=== PATIENT | female | born 1980 | race Caucasian/White ===

== ENCOUNTER → 2017-10-21 01:02 | Outpatient (CLI) | payer BC, SELFPAY ==
--- NOTE | 2017-10-21 12:31 | DI.REPORT_ITS ---
SYMPTOM/DIAGNOSIS: MORPHOLOGY, TWINS 030.049 OB ULTRASOUND: Comparison is made with 13 September 2017. Dichorionic diamniotic gestation is noted. Both placentas are anterior and adjacent to one another. Fetus A is on the maternal right in breech position. The biometric measurements correspond to 17 weeks 3 days, consistent with previous dating. No abnormalities are seen. Fetus B is in transverse position with the head toward the maternal left. The biometric measurements correspond to 17 weeks 5 days. No abnormalities are seen. The amount of amniotic fluid around both fetuses appears normal. IMPRESSION: Twin gestation shows normal size for gestational age. Many abnormalities cannot be diagnosed. A normal exam does not exclude a congenital anomaly. Radiology No. [id number] LMP: Exam Date:10/21/17 [facility] wks days on EDC ([facility]) Confirmed: HISTORY: MORPHOLOGY. TWINS. TWIN BABY A ---- PREDICTED GESTATIONAL AGE NUMBER weeks with a range of week to weeks. 2 Determined by___1STUS___LMP___HISTORY Info. pertaining to fetus #BABY A PLACENTA PRESENTATION Grade 0-1 Cephalic___ Anterior___Posterior__XX_ Breech____ Right Left Transverse(head right___ Fundal___Low-lying___Previa___ Transverse(head left___ Varying___XX MOSTLY BREECH - ON RT___ BIOMETRY AMNIOTIC FLUID BPD: 38 mm 17 +5 weeks Normal HC: 139 mm 17 +2 weeks AC: 119 mm 17 +5 weeks FL: 23 mm 17 weeks AMNIOTIC FLUID INDEX >26 WK CRL: mm weeks Cisterna Magna: 4 mm CI: 0.84 RUQ: LUQ Cerebellum: 1.8 cm EFW: 191 grams Percentile RLQ: LLQ Total: cms Composite AGE= 17 +3 wks EDC by US__03/28/18 BIOPHYSICAL PROFILE ANATOMY IDENTIFIED SCORE 0/2 Heart: 4-Chamber_X__Rate:BPM__149___ LVOT: X RVOT:__X Amniotic Fluid(>2cms)____ Stomach:___X____ Kidneys:___X____ Respirations (>30 secs) Bladder:____X____ Post. Fossa: X Body Flex/Extension 3 vessel cord:__X Ventricles:____X cord insertion:_X____ Lips:__X__ Extremity Flex/Extension spinal morphology:__X Nose:X Total Score= Palate:___X____ NS=not seen Many abnormalities cannot be diagnosed. A normal exam does not exclude a congenital anomaly. Radiology No. [id number] LMP: Exam Date:10/21/17 [facility] wks days on EDC ([facility]) 03/30/18 Confirmed: HISTORY: MORPHOLOGY - TWINS Baby B ---- PREDICTED GESTATIONAL AGE NUMBER 17 +1 weeks with a range of 16 +1 week to 18 +1 weeks. 2 Determined by___1STUS___LMP___HISTORY XX EDC Info. pertaining to fetus # BABY B PLACENTA PRESENTATION Grade 0-1 Cephalic___ Anterior_XX__Posterior___ Breech____ Right Left Transverse(head right___ Fundal___Low-lying___Previa___ Transverse(head left X X SUPERIOR___ Varying BIOMETRY AMNIOTIC FLUID BPD: 40 mm 18 +2 weeks Normal HC: 147 mm 17 +6 weeks AC: 120 mm 17 +5 weeks FL: 23 mm 16 +5 weeks AMNIOTIC FLUID INDEX >26 WK CRL: mm weeks Cisterna Magna: 4mm CI: 0.84 RUQ: LUQ Cerebellum: 1.7 cm EFW: 191 grams Percentile RLQ: LLQ Total: cms Composite AGE= 17 +5 wks EDC by _ 03/26/18 BIOPHYSICAL PROFILE ANATOMY IDENTIFIED SCORE 0/2 Heart: 4-Chamber_xx__Rate:BPM_x___ LVOT:____x RVOT:__x Amniotic Fluid(>2cms)____ Stomach:___x____ Kidneys:___x____ Respirations (>30 secs) Bladder:____x____ Post. Fossa:___x Body Flex/Extension 3 vessel cord:__x Ventricles:__x cord insertion: Lips:__x__ Extremity Flex/Extension spinal morphology:____x____Nose: x Total Score= Palate:__x NS=not seen
== END ==
PROVIDERS: PCP Internal Medicine; Visit Provider Obstetrics & Gynecology Gynecology
DX: O30.042 Twin pregnancy, dichorionic/diamniotic, second trimester (principal)
CPT/HCPCS: 76805; 76810

== ENCOUNTER 2017-11-24 00:24 | Outpatient (CLI) | payer SELFPAY ==
--- NOTE | 2017-11-24 11:37 | DI.US_ITS ---
SYMPTOMS/DIAGNOSIS: GROWTH, TWINS, Z33.3 OBSTETRICAL ULTRASOUND: Many abnormalities cannot be diagnosed. A normal exam does not exclude a congenital anomaly. Radiology No. [id number] LMP: Exam Date: 11/24/2017 [facility] wks days on EDC ([facility]) 03/30/18 Confirmed: HISTORY: ---- PREDICTED GESTATIONAL AGE NUMBER 22 weeks with a range of 21 weeks to 23 weeks. 2 Determined by_X__1STUS___LMP___HISTORY Info. pertaining to fetus A PLACENTA PRESENTATION Grade I Cephalic___ Anterior_X__Posterior___ Breech____ Right Left Transverse(head right)_X__ Fundal_X__Low-lying___Previa___ Transverse(head left___ Varying BIOMETRY AMNIOTIC FLUID BPD: 53 mm 22+1 weeks Normal HC: 200 mm 22+1 weeks AC: 185 mm 23+2 weeks FL: 38 mm 22 weeks AMNIOTIC FLUID INDEX >26 WK CRL: mm weeks Cisterna Magna: mm CI: 83 RUQ: 0 LUQ: 3.0 Cerebellum: cm EFW: 525 grams Percentile: 78th RLQ: 2.6 LLQ: 2.6 Total: 8.1 cm Composite AGE= 22+3 wks EDC by US: 03/27/18 BIOPHYSICAL PROFILE ANATOMY IDENTIFIED SCORE 0/2 Heart: 4-Chamber___Rate:BPM 165 LVOT: RVOT: Amniotic Fluid(>2cms)____ Stomach: Kidneys: Respirations (>30 secs) Bladder: Post. Fossa: Body Flex/Extension 3 vessel cord: Ventricles: cord insertion: Lips:____ Extremity Flex/Extension spinal morphology: Nose: Total Score= Palate: NS=not seen Many abnormalities cannot be diagnosed. A normal exam does not exclude a congenital anomaly. OBSTETRICAL ULTRASOUND: Many abnormalities cannot be diagnosed. A normal exam does not exclude a congenital anomaly. Radiology No. [id number] LMP: Exam Date: 11/24/2017 [facility] wks days on EDC ([facility]) 03/30/18 Confirmed: HISTORY: ---- PREDICTED GESTATIONAL AGE NUMBER 22 weeks with a range of 21 weeks to 23 weeks. 2 Determined by_X__1STUS___LMP___HISTORY Info. pertaining to fetus B PLACENTA PRESENTATION Grade I Cephalic___ Anterior_X__Posterior___ Breech____ Right Left Transverse(head right)___ Fundal_X__Low-lying___Previa___ Transverse(head left_X__ Varying BIOMETRY AMNIOTIC FLUID BPD: 54 mm 22+3 weeks Normal HC: 204 mm 22+4 weeks AC: 177 mm 23+4 weeks FL: 38 mm 22+1 weeks AMNIOTIC FLUID INDEX >26 WK CRL: mm weeks Cisterna Magna: mm CI: 81 RUQ: 1.0 LUQ: 1.6 Cerebellum: cm EFW: 503 grams Percentile: 66th RLQ: 3.2 LLQ: 2.9 Total: 8.7 cm Composite AGE= 22+3 wks EDC by US: 03/27/18 BIOPHYSICAL PROFILE ANATOMY IDENTIFIED SCORE 0/2 Heart: 4-Chamber___Rate:BPM 155 LVOT: RVOT: Amniotic Fluid(>2cms)____ Stomach: Kidneys: Respirations (>30 secs) Bladder: Post. Fossa: Body Flex/Extension 3 vessel cord: Ventricles: cord insertion: Lips:____ Extremity Flex/Extension spinal morphology: Nose: Total Score= Palate: NS=not seen COMMENTS: There are twin gestations. The placenta is anterior and fundal. Baby A shows a gestational age of 22 weeks 3 days. Estimated weight is 525 g. This is the 78th percentile. heart rate is 168 beats per minute. Amniotic fluid appears within normal limits. anatomic evaluation was not performed at this time. Baby B has a composite sonographic gestational age of 22 weeks 3 days. Estimated weight is 503 g. This is the 66th percentile. heart rate is 155 beats per minute. Amniotic fluid appears within normal limits. Baby A is transverse, head to the right. Baby B is transverse, head to the left. IMPRESSION: Living intrauterine twin gestation.
== END 2017-11-24 00:44 ==
PROVIDERS: PCP Internal Medicine; Visit Provider Obstetrics & Gynecology
DX: O30.002 Twin pregnancy, unspecified number of placenta and unspecified number of amniotic sacs, second trimester (principal); Z36.89 Encounter for other specified antenatal screening
CPT/HCPCS: 76816

== ENCOUNTER 2017-12-20 00:32 | Outpatient (CLI) | payer BC, SELFPAY ==
--- NOTE | 2017-12-20 09:28 | DI.US_ITS ---
Many abnormalities cannot be diagnosed. A normal exam does not exclude a congenital anomaly. Radiology No. [id number] LMP: Exam Date: 12/20/17 [facility] wks days on EDC ([facility]) 03/30/18 Confirmed: HISTORY: TWINS, ESTIMATED WEIGHT, GRICEL, GROWTH ---- PREDICTED GESTATIONAL AGE NUMBER 25.5 weeks with a range of 24.5 week to 26.5 weeks. 2 Determined by__X_1STUS___LMP___HISTORY Info. pertaining to fetus # A PLACENTA PRESENTATION Grade I-II Cephalic___ Anterior_X__Posterior___ Breech____ Right Left Transverse(head right__X_ Fundal__X_Low-lying___Previa___ Transverse(head left___ Varying BIOMETRY AMNIOTIC FLUID BPD: 65 mm 26.1 weeks Normal HC: 241 mm 26.1 weeks AC: 215 mm 26 weeks FL: 47 mm 25.4 weeks AMNIOTIC FLUID INDEX >26 WK CRL: mm weeks Cisterna Magna: mm CI: 82 RUQ:___6.9___LUQ___6.0 Cerebellum: cm EFW: 863 grams 46th Percentile RLQ:__4.0____LLQ__5.9___ Total:___22.8 cms Composite AGE= 26.0 wks EDC by US___03/28/18 BIOPHYSICAL PROFILE ANATOMY IDENTIFIED SCORE 0/2 Heart: 4-Chamber___Rate:BPM__147___ LVOT: RVOT: Amniotic Fluid(>2cms)____ Stomach: Kidneys: Respirations (>30 secs) Bladder: Post. Fossa: Body Flex/Extension 3 vessel cord: Ventricles: cord insertion: Lips:____ Extremity Flex/Extension spinal morphology: Nose: Total Score= Palate: NS=not seen Many abnormalities cannot be diagnosed. A normal exam does not exclude a congenital anomaly. Radiology No. LMP: Exam Date: 12/20/17 [facility] wks days on [facility] ([facility]) 03/30/18 Confirmed: HISTORY: GRICEL, GROWTH, TWINS, WEIGHT ---- PREDICTED GESTATIONAL AGE NUMBER 25.5 weeks with a range of 24.5 week to 26.5 weeks. 2 Determined by__X_1STUS___LMP___HISTORY Info. pertaining to fetus # B PLACENTA PRESENTATION Grade I-II Cephalic___ Anterior__X_Posterior___ Breech____ Right Left Transverse(head right_X__ Fundal_X__Low-lying___Previa___ Transverse(head left___ Varying BIOMETRY AMNIOTIC FLUID BPD: 65 mm 26.3 weeks Normal HC: 250 mm 27.1 weeks AC: 221 mm 26.4 weeks FL: 46 mm 25.1 weeks AMNIOTIC FLUID INDEX >26 WK CRL: mm weeks Cisterna Magna: mm CI: 76 RUQ:___6.9___LUQ__6.0 Cerebellum: cm EFW: 893 grams 56th Percentile RLQ:__4.0____LLQ___5.9____ Total:___22.8 cms Composite AGE= 26.2 wks EDC by US__03/26/18 BIOPHYSICAL PROFILE ANATOMY IDENTIFIED SCORE 0/2 Heart: 4-Chamber___Rate:BPM__149___ LVOT: RVOT: Amniotic Fluid(>2cms)____ Stomach: Kidneys: Respirations (>30 secs) Bladder: Post. Fossa: Body Flex/Extension 3 vessel cord: Ventricles: cord insertion: Lips:____ Extremity Flex/Extension spinal morphology: Nose: Total Score= Palate: NS=not seen Routine examination. Comparison is made with 09/13/17. There is a twin gestation. Baby A is in the transverse presentation, head to the right. heart rate is 147 beats per minute. Estimated weight is 863 grams which is in the 46th percentile. Estimated gestational age is 26 weeks 0 days. Baby B is in the transverse presentation with head to the right. heart rate is 149 beats per minute. Estimated weight is 893 grams which is in the 56th percentile. Estimated gestational age is 26 weeks 2 days. The placenta is anterior and fundal. Amniotic fluid index is 22.8 cm. Visually amniotic fluid appears within normal limits. IMPRESSION: Twin gestation. Please see the above discussion for complete details.
== END 2017-12-20 00:52 ==
PROVIDERS: PCP Internal Medicine; Visit Provider Obstetrics & Gynecology
DX: O30.002 Twin pregnancy, unspecified number of placenta and unspecified number of amniotic sacs, second trimester (principal); Z36.89 Encounter for other specified antenatal screening
CPT/HCPCS: 76816

== ENCOUNTER 2018-01-17 00:31 | Outpatient (CLI) | payer SELFPAY ==
--- NOTE | 2018-01-17 06:18 | DI.US_ITS ---
Many abnormalities cannot be diagnosed. A normal exam does not exclude a congenital anomaly. Radiology No. LMP: 06/23/17 Exam Date: 01/17/18 [facility] wks days on EDC ([facility]) 03/30/18 Confirmed: HISTORY: FOLLOW GROWTH TWINS, O30.009,GRICEL ---- PREDICTED GESTATIONAL AGE NUMBER 29.5 weeks with a range of 28.5 week to 30.5 weeks. 2 Determined by_X__1STUS___LMP___HISTORY Info. pertaining to fetus # A PLACENTA PRESENTATION Grade II Cephalic___ Anterior_X__Posterior___ Breech____ Right Left Transverse(head right__X_ Fundal___Low-lying___Previa___ Transverse(head left___ Varying BIOMETRY AMNIOTIC FLUID BPD: 74 mm 29.5 weeks Normal HC: 276 mm 30.1 weeks AC: 260 mm 30.1 weeks FL: 56 mm 29.3 weeks AMNIOTIC FLUID INDEX >26 WK CRL: mm weeks Cisterna Magna: mm CI: 79 RUQ:__4.08___LUQ___3.11 Cerebellum: cm EFW: 1469 grams 42nd Percentile RLQ:__4.66____LLQ____2.89___ Total:___14.7 cms Composite AGE= 29.6 wks EDC by US 03/29/18 BIOPHYSICAL PROFILE ANATOMY IDENTIFIED SCORE 0/2 Heart: 4-Chamber_X__Rate:BPM_152____ LVOT: RVOT: Amniotic Fluid(>2cms)____ Stomach:____X___ Kidneys:____X___ Respirations (>30 secs) Bladder:____X____ Post. Fossa: Body Flex/Extension 3 vessel cord: Ventricles: cord insertion: Lips:____ Extremity Flex/Extension spinal morphology: Nose: Total Score= Palate: NS=not seen Routine examination was performed. There is a twin gestation. Baby A is in the transverse position with the head to the right. heart rate is 152 beats per minute. Estimated weight is 1469 grams which is the 42nd percentile. Estimated gestational age is 29 weeks 6 days. Many abnormalities cannot be diagnosed. A normal exam does not exclude a congenital anomaly. Radiology No. LMP: 06/23/17 Exam Date: 01/17/18 [facility] wks days on EDC ([facility]) 03/30/2018 Confirmed: HISTORY: F/U TWIN GROWTH, GRICEL ---- PREDICTED GESTATIONAL AGE NUMBER 29.5 weeks with a range of 28.5 week to 30.5 weeks. 2 Determined by__X_1STUS___LMP___HISTORY Info. pertaining to fetus # PLACENTA PRESENTATION Grade II Cephalic___ Anterior__X_Posterior___ Breech____ Right Left Transverse(head right__X_ Fundal___Low-lying___Previa___ Transverse(head left___ Varying BIOMETRY AMNIOTIC FLUID BPD: 76 mm 30.2 weeks Normal HC: 279 mm 30.4 weeks AC: 259 mm 30 weeks FL: 56 mm 29.2 weeks AMNIOTIC FLUID INDEX >26 WK CRL: mm weeks Cisterna Magna: mm CI: RUQ:__4.1____LUQ___3.1 Cerebellum: cm EFW: 1465 grams 41st Percentile RLQ:_4.7 LLQ____2.9___ Total:____14.7____cms Composite AGE= 30 wks EDC by US 03/28/18 BIOPHYSICAL PROFILE ANATOMY [id number] SCORE 0/2 Heart: 4-Chamber_X__Rate:BPM LVOT: RVOT: Amniotic Fluid(>2cms)____ Stomach:__X Kidneys:___X____ Respirations (>30 secs) Bladder:___X Post. Fossa: Body Flex/Extension 3 vessel cord: Ventricles: cord insertion: Lips:____ Extremity Flex/Extension spinal morphology: Nose: Total Score= Palate: NS=not seen Baby B is in the transverse position with the head to the right. heart rate is 144 beats per minute. Estimated weight is 1465 grams which is the 41st percentile. Estimated gestational age is 30 weeks. The placenta is anterior and fundal. Amniotic fluid index is 14.7 cm. Visually the amniotic fluid appears within normal limits. IMPRESSION: Twin gestation. Please see the above discussion for complete details.
[2018-01-17 07:21] LABS: HCT 33.7 % (36.0-46.0); HGB 11.6 g/dL (12.0-15.5); Mean Corp. HGB Concentration 34.4 g/dL (32.0-36.0); Mean Corpuscular Hemoglobin 30.8 pg (27.0-33.0); Mean Corpuscular Volume 89.4 fL (80-95); Mean Platelet Volume 9.8 fL (8.0-11.0); Platelet Count 176 x1000/uL (130-400); RBC 3.77 m/cumm (4.00-5.20); RBC Distribution Width 13.9 % (11.7-14.6); White Blood Cell Count 7.44 k/cumm (4.4-10.8)
[2018-01-17 07:31] LABS: Glucose,1 Hr (Glucola) 149 mg/dL (80-140)
== END 2018-01-17 00:51 ==
PROVIDERS: Obstetrics & Gynecology Gynecology; PCP Internal Medicine; Visit Provider Obstetrics & Gynecology
DX: O30.003 Twin pregnancy, unspecified number of placenta and unspecified number of amniotic sacs, third trimester (principal); Z36.2 Encounter for other antenatal screening follow-up
CPT/HCPCS: 36415; 76816; 82950; 85027

== ENCOUNTER 2018-01-25 07:24 | Outpatient (CLI) | payer SELFPAY ==
[2018-01-25 09:13] LABS: Glucose 1 Hour 146 mg/dL
[2018-01-25 11:35] LABS: Glucose 3 Hour 118 mg/dL
== END 2018-01-25 07:44 ==
PROVIDERS: PCP Internal Medicine; Visit Provider Obstetrics & Gynecology Gynecology
DX: R73.09 Other abnormal glucose (principal)
CPT/HCPCS: 36415; 82951

== ENCOUNTER 2018-02-16 00:21 | Outpatient (CLI) | payer BC, SELFPAY ==
--- NOTE | 2018-02-16 10:32 | DI.US_ITS ---
SYMPTOMS/DIAGNOSIS: TWINS, 030.003, CHECK GROWTH, FLUID OB ULTRASOUND: Comparison is made with . Fetus A is on the maternal right and is in cephalic position. The estimated weight corresponds to 51st percentile. The biometric measurements correspond to 34 weeks 2 days, consistent with previous dating. Fetus B is on the maternal left transverse and with the head toward the left. The biometric measurements correspond to 34 weeks 5 days. The estimated weight is 231 grams corresponding to the 49th percentile. The placenta is anterior. The amniotic fluid index is 18.2. IMPRESSION: Twin gestation with appropriate interval growth of both twins. Many abnormalities cannot be diagnosed. A normal exam does not exclude a congenital anomaly. Radiology No. [id number] LMP: Exam Date: [facility] wks days on EDC ([facility]) 03/30 Confirmed: ---- PREDICTED GESTATIONAL AGE NUMBER 34 weeks with a range of 33 weeks to 35 weeks. 2 Determined by 1STUS X LMP___HISTORY Info. pertaining to fetus # Baby A PLACENTA PRESENTATION Grade I-II Cephalic X Anterior X Posterior___ Breech____ Right Left Transverse(head right___ Fundal___Low-lying___Previa___ Transverse(head left___ Varying BIOMETRY AMNIOTIC FLUID BPD: 85 mm 34+3 weeks Normal HC: 311 mm 34+6 weeks AC: 308 mm 34+5 weeks FL: 64 mm 33+1 weeks AMNIOTIC FLUID INDEX >26 WK CRL: mm weeks Cisterna Magna: mm CI: 0.82 RUQ: 8.67 LUQ: 5.09 Cerebellum: cm EFW: 2385 grams Percentile 51% RLQ: 1.81 LLQ: 2.62 Total: 18.2 cms Composite AGE= 34+2 wks EDC by US 03/28/18 BIOPHYSICAL PROFILE ANATOMY IDENTIFIED SCORE 0/2 Heart: 4-Chamber___Rate: 169 BPM LVOT: RVOT: Amniotic Fluid(>2cms)____ Stomach: Kidneys: Respirations (>30 secs) Bladder: Post. Fossa: Body Flex/Extension 3 vessel cord: Ventricles: cord insertion: Lips:____ Extremity Flex/Extension spinal morphology: Nose: Total Score= Palate: NS=not seen Baby A, right side, female. Many abnormalities cannot be diagnosed. A normal exam does not exclude a congenital anomaly. Radiology No. [id number] LMP: Exam Date: 02/16/18 [facility] wks days on EDC ([facility]) 03/30/18 Confirmed: ---- PREDICTED GESTATIONAL AGE NUMBER 34 weeks with a range of 33 weeks to 35 weeks. 2 Determined by 1STUS X LMP___HISTORY Info. pertaining to fetus # PLACENTA PRESENTATION Grade I-II Cephalic___ Anterior X Posterior___ Breech____ Right Left Transverse(head right___ Fundal___Low-lying___Previa___ Transverse(head left X superior Varying BIOMETRY AMNIOTIC FLUID BPD: 88 mm 35+4 weeks Normal HC: 328 mm 37+1 weeks AC: 309 mm 34+6 weeks FL: 60 mm 31+3 weeks AMNIOTIC FLUID INDEX >26 WK CRL: mm weeks Cisterna Magna: mm CI: 0.78 RUQ: 8.67 LUQ: 5.09 Cerebellum: cm EFW: 2371 grams Percentile 49% RLQ: 1.81 LLQ: 2.62 Total: 18.2 cms Composite AGE= 34+5 wks EDC by US 03/25/18 BIOPHYSICAL PROFILE ANATOMY IDENTIFIED SCORE 0/2 Heart: 4-Chamber___Rate: 145 BPM LVOT: RVOT: Amniotic Fluid(>2cms)____ Stomach: Kidneys: Respirations (>30 secs) Bladder: Post. Fossa: Body Flex/Extension 3 vessel cord: Ventricles: cord insertion: Lips:____ Extremity Flex/Extension spinal morphology: Nose: Total Score= Palate: NS=not seen Baby B, left side, male.
== END 2018-02-16 00:41 ==
PROVIDERS: PCP Internal Medicine; Visit Provider Obstetrics & Gynecology Gynecology
DX: O30.003 Twin pregnancy, unspecified number of placenta and unspecified number of amniotic sacs, third trimester (principal)
CPT/HCPCS: 76816

== ENCOUNTER 2018-02-24 16:15 | Outpatient (CLI) | payer BC, SELFPAY ==
[2018-02-24] MEDS: Betamet Acet/Betamet Na Ph Inj. 30 MG/5 ML 12 MG IM (16:32)
== END 2018-02-24 16:35 ==
PROVIDERS: PCP Internal Medicine; Visit Provider Obstetrics & Gynecology
DX: Z34.93 Encounter for supervision of normal pregnancy, unspecified, third trimester (principal); Z36.85 Encounter for antenatal screening for Streptococcus B
CPT/HCPCS: 96372; 87081; J0702

== ENCOUNTER 2018-02-25 16:12 | Outpatient (CLI) | payer BC, SELFPAY ==
[2018-02-25] MEDS: Betamet Acet/Betamet Na Ph Inj. 30 MG/5 ML 12 MG IM (16:32)
== END 2018-02-25 16:32 ==
PROVIDERS: PCP Internal Medicine; Visit Provider Obstetrics & Gynecology
DX: O30.043 Twin pregnancy, dichorionic/diamniotic, third trimester (principal); Z3A.36 36 weeks gestation of pregnancy
CPT/HCPCS: 96372; J0702

== ENCOUNTER 2018-03-08 00:23 | Outpatient (CLI) | payer BC, SELFPAY ==
--- NOTE | 2018-03-08 07:54 | DI.US_ITS ---
SYMPTOMS/DIAGNOSIS: TWIN GESTATION, GROWTH, GRICEL AT 37 WEEKS EGA, O30.003 OB ULTRASOUND: Many abnormalities cannot be diagnosed. A normal exam does not exclude a congenital anomaly. Radiology No. [id number] LMP: Exam Date: 03/08/18 [facility] wks days on EDC ([facility]) Confirmed: HISTORY: PREDICTED GESTATIONAL AGE NUMBER 37 weeks with a range of 36 weeks to 38 weeks. 2 Determined by_X__1STUS___LMP___HISTORY Info. pertaining to fetus A PLACENTA PRESENTATION Grade I-II Cephalic_X__ Anterior_X__Posterior___ Breech____ Right Left Transverse(head right___ Fundal___Low-lying___Previa___ Transverse(head left___ Varying BIOMETRY AMNIOTIC FLUID BPD: 91 mm 36+6 weeks Normal HC: 334 mm 38+1 weeks AC: 337 mm 37+4 weeks FL: 68 mm 34+6 weeks AMNIOTIC FLUID INDEX >26 WK CRL: mm weeks Cisterna Magna: mm CI: 0.81 RUQ: 5.2 LUQ: 4.82 Cerebellum: cm EFW: 3073 grams Percentile: 45th RLQ: 5.18 LLQ: 4.84 Total: 20 cm Composite AGE= 36+6 wks EDC by US: 03/30/18 BIOPHYSICAL PROFILE ANATOMY IDENTIFIED SCORE 0/2 Heart: 4-Chamber___Rate:BPM 145 LVOT: RVOT: Amniotic Fluid(>2cms)____ Stomach: Kidneys: Respirations (>30 secs) Bladder: Post. Fossa: Body Flex/Extension 3-vessel cord:___X____Ventricles: cord insertion: Lips:____ Extremity Flex/Extension spinal morphology: Nose: Total Score= Palate: NS=not seen Radiology No. [id number] LMP: Exam Date: 03/08/18 [facility] wks days on EDC ([facility]) Confirmed: HISTORY: PREDICTED GESTATIONAL AGE NUMBER 37 weeks with a range of 36 weeks to 38 weeks. 2 Determined by_X__1STUS___LMP___HISTORY Info. pertaining to fetus B PLACENTA PRESENTATION Grade I-II Cephalic_X__ Anterior_X__Posterior___ Breech____ Right Left Transverse(head right___ Fundal___Low-lying___Previa___ Transverse(head left___ Varying BIOMETRY AMNIOTIC FLUID BPD: 92 mm 37+2 weeks Normal HC: 341 mm 39+2 weeks AC: 347 mm 38+4 weeks FL: 66 mm 34+1 weeks AMNIOTIC FLUID INDEX >26 WK CRL: mm weeks Cisterna Magna: mm CI: 0.78 RUQ: 5.2 LUQ: 4.82 Cerebellum: cm EFW: 3229 grams Percentile: RLQ: 5.18 LLQ: 4.84 Total: 20 cm Composite AGE= 37+2 wks EDC by US: 03/27/18 BIOPHYSICAL PROFILE ANATOMY IDENTIFIED SCORE 0/2 Heart: 4-Chamber___Rate:BPM 155 LVOT: RVOT: Amniotic Fluid(>2cms)____ Stomach: Kidneys: Respirations (>30 secs) Bladder: Post. Fossa: Body Flex/Extension 3-vessel cord:___X____Ventricles: cord insertion: Lips:____ Extremity Flex/Extension spinal morphology: Nose: Total Score= Palate: NS=not seen COMMENTS: OB ultrasound was performed utilizing third trimester protocol. The placenta of fetus A is anterior with no evidence of placenta previa. There is a normal quantity of amniotic fluid visually and the GRICEL is 20. biometry is consistent with a gestational age of 36 weeks 6 days and EDC 03/30/2018. Estimated weight is 3073 g, which is at the 45th percentile for predicted gestational age. The fetus is in cephalic presentation. cardiac activity observed at a rate of 145 b.p.m. The placenta of fetus B is anterior with no evidence of placenta previa. There is a normal quantity of amniotic fluid visually and the GRICEL is 20. biometry is consistent with a gestational age of 37 weeks 2 days and EDC 03/27/2018. Estimated weight is 3229 g. The fetus is in cephalic presentation. cardiac activity observed at a rate of 155 b.p.m.
== END 2018-03-10 07:43 ==
LOC: DI 00:23
PROVIDERS: PCP Internal Medicine; Visit Provider Obstetrics & Gynecology Gynecology
DX: O30.003 Twin pregnancy, unspecified number of placenta and unspecified number of amniotic sacs, third trimester (principal)
CPT/HCPCS: 76816

== ENCOUNTER 2018-03-10 07:00 | Inpatient (IN) | payer BC, SELFPAY ==
[2018-03-10 07:32] LABS: HCT 34.6 % (36.0-46.0); HGB 11.7 g/dL (12.0-15.5); Mean Corp. HGB Concentration 33.8 g/dL (32.0-36.0); Mean Corpuscular Hemoglobin 28.5 pg (27.0-33.0); Mean Corpuscular Volume 84.2 fL (80-95); Mean Platelet Volume 10.6 fL (8.0-11.0); Platelet Count 213 x1000/uL (130-400); RBC 4.11 m/cumm (4.00-5.20); RBC Distribution Width 12.4 % (11.7-14.6); White Blood Cell Count 6.65 k/cumm (4.4-10.8)
[2018-03-10] MEDS: Lactated Ringers 1,000 ML 125 ML IV ×2 (08:26→14:51)
--- NOTE | 2018-03-10 20:10 | PDOC.ANES ---
Date of service: 03/10/18 Time of Service: 20:10 Anesthesia Note Report Anesthesia Note: Requested by patient to provide epidural analgesia. Epidural placed earlier this afternoon. pt does state she has a very mild headache but intensity does not change with position. she has been ambulatory without difficulty. Clinician bolus given from pump with a total of 20 ml in divided doses. Contraction intensity 6/10 prior to dosing and is reported to 2-3/10 after. dressing and site intact. there is a very small amount of clear/blood tinged drainage in dressing, catheter is still at 11cm to skin.
--- NOTE | 2018-03-10 20:16 | ANES_ITS ---
Date of service: 03/10/18 Time of Service: 20:10 Anesthesia Note Report Anesthesia Note: Requested by patient to provide epidural analgesia. Epidural placed earlier this afternoon. pt does state she has a very mild headache but intensity does not change with position. she has been ambulatory without difficulty. Clinician bolus given from pump with a total of 20 ml in divided doses. Contraction intensity 6/10 prior to dosing and is reported to 2- 3/10 after. dressing and site intact. there is a very small amount of clear/blood tinged drainage in dressing, catheter is still at 11cm to skin.
[2018-03-10] MEDS: Tranexamic Acid 1,000 MG/10 ML VIAL 1000 MG (23:58)
[2018-03-11] MEDS: Ondansetron 4 MG/2 ML VIAL IVP
[2018-03-11] MEDS: Normal Saline Flush 10 ML SYR IVP (00:04)
[2018-03-11 07:16] LABS: HCT 31.4 % (36.0-46.0); HGB 10.6 g/dL (12.0-15.5); Mean Corp. HGB Concentration 33.8 g/dL (32.0-36.0); Mean Corpuscular Hemoglobin 28.2 pg (27.0-33.0); Mean Corpuscular Volume 83.5 fL (80-95); Mean Platelet Volume 10.5 fL (8.0-11.0); Platelet Count 168 x1000/uL (130-400); RBC 3.76 m/cumm (4.00-5.20); RBC Distribution Width 12.1 % (11.7-14.6); White Blood Cell Count 8.51 k/cumm (4.4-10.8)
--- NOTE | 2018-03-11 08:45 | W.PM.PROGNOT ---
Date of Service Date of service: 03/11/18 Time of Service: 08:46 Assessment and Plan (1) Twin delivered vaginally: Current visit: Yes Status: Acute Continue routine care. Will plan for discharge home tomorrow. Subjective Interval history since last seen: Doing well. No problems overnight. Lochia has been appropriate. Ambulatory. Tolerating regular diet. Objective Objective Clinical Data: Abnormal lab results 03/11/18 Range/Units 07:05 RBC 3.76 L (4.00-5.20) m/cumm Hgb 10.6 L (12.0-15.5) g/dL Hct 31.4 L (36.0-46.0) % Intake & Output 03/10/18 03/10/18 03/11/18 11:59 23:59 11:59 Intake Total 2200.00 / 2200.00 Balance 2200.00 / 2200.00 Intake: IV 2200.00 / 2200.00 Laboratory Results WBC 8.51 k/cumm (4.4-10.8) 03/11/18 07:05 RBC 3.76 m/cumm (4.00-5.20) L 03/11/18 07:05 Hgb 10.6 g/dL (12.0-15.5) L 03/11/18 07:05 Hct 31.4 % (36.0-46.0) L 03/11/18 07:05 MCV 83.5 fL (80-95) 03/11/18 07:05 MCH 28.2 pg (27.0-33.0) 03/11/18 07:05 MCHC 33.8 g/dL (32.0-36.0) 03/11/18 07:05 RDW 12.1 % (11.7-14.6) 03/11/18 07:05 Plt Count 168 x1000/uL (130-400) 03/11/18 07:05 MPV 10.5 fL (8.0-11.0) 03/11/18 07:05 Patient ABO/Rh O Positive 03/10/18 07:20 Antibody Screen Negative 03/10/18 07:20
[2018-03-11] MEDS: Acetaminophen 325 MG TAB 650 MG PO ×2 (13:07→19:49)
[2018-03-11] MEDS: Ibuprofen 600 MG TAB PO ×2 (13:08→19:47)
[2018-03-12] MEDS: Acetaminophen 325 MG TAB 650 MG PO (06:40)
[2018-03-12] MEDS: Ibuprofen 600 MG TAB PO (06:40)
--- NOTE | 2018-03-12 09:03 | W.PM.PROGNOT ---
Date of Service Date of service: 03/12/18 Time of Service: 09:03 Assessment and Plan (1) Twin delivered vaginally: Current visit: Yes Status: Acute Unremarkable course following of Di Di twins. Ok to discharge home today. Subjective Interval history since last seen: Doing well. No problems overnight. Minimal lochia. Desires discharge home. Objective Objective Clinical Data: Vital Signs Pain Level 3 03/12/18 06:40 Laboratory Results WBC 8.51 k/cumm (4.4-10.8) 03/11/18 07:05 RBC 3.76 m/cumm (4.00-5.20) L 03/11/18 07:05 Hgb 10.6 g/dL (12.0-15.5) L 03/11/18 07:05 Hct 31.4 % (36.0-46.0) L 03/11/18 07:05 MCV 83.5 fL (80-95) 03/11/18 07:05 MCH 28.2 pg (27.0-33.0) 03/11/18 07:05 MCHC 33.8 g/dL (32.0-36.0) 03/11/18 07:05 RDW 12.1 % (11.7-14.6) 03/11/18 07:05 Plt Count 168 x1000/uL (130-400) 03/11/18 07:05 MPV 10.5 fL (8.0-11.0) 03/11/18 07:05 Patient ABO/Rh O Positive 03/10/18 07:20 Antibody Screen Negative 03/10/18 07:20
== END 2018-03-12 10:00 | disposition home or self-care (01) | DRG 807 ==
PROVIDERS: Admitting Provider Obstetrics & Gynecology Gynecology; PCP Internal Medicine; Referring Provider Obstetrics & Gynecology Gynecology; Visit Provider Obstetrics & Gynecology
DX: O30.043 Twin pregnancy, dichorionic/diamniotic, third trimester (principal); Z37.2 Twins, both liveborn; Z3A.37 37 weeks gestation of pregnancy; O69.0XX2 Labor and delivery complicated by prolapse of cord, fetus 2; O32.8XX2 Maternal care for other malpresentation of fetus, fetus 2; O09.813 Supervision of pregnancy resulting from assisted reproductive technology, third trimester; O99.824 Streptococcus B carrier state complicating childbirth
CPT/HCPCS: 59409 ×2; 36415; 85027; 86850; 86900; 86901; 99233; NC; J2405; J3490

== ENCOUNTER 2018-04-20 16:02 | Outpatient (REF) | payer BC, SELFPAY ==
--- NOTE | 2018-04-20 15:40 | PAPFT_PTH ---
PATIENT: Flower Cali LOC: [facility] U#:[id number] AGE/SX: 37/F ROOM: RE04/20/[address]: Ramya Sutton : 1980 BED: DIS: 04/20/2018 SPEC #: [id number] RECD: 04/20/18 18:01 STATUS: CHARLENE ROBERT #: [id number] REGINE: 04/20/18 15:[address]: Ramya Sutton DEPT: [facility] Cytology RECD BY: Christa Mathew ENTERED: 04/20/18 18:01 SP TYPE: PAPFT OTHR DR: Maximo Sosa Tissues: 1 - CX/ENDOCX FOR PAP SMEARS Procedures: PAP THIN PREP/UVM Screening HPV DNA PROBE Comments: [id number]
== END 2018-04-20 16:22 ==
LOC: LBN 16:02
PROVIDERS: PCP Internal Medicine; Visit Provider Obstetrics & Gynecology Gynecology
DX: Z12.4 Encounter for screening for malignant neoplasm of cervix (principal); Z11.51 Encounter for screening for human papillomavirus (HPV)
CPT/HCPCS: 88142; 87624

== ENCOUNTER 2020-04-17 00:59 | Outpatient (CLI) | payer BC, SELFPAY ==
--- NOTE | 2020-04-17 | DI.US_ITS ---
EXAM: US PELVIS TRANSVAGINAL CLINICAL HISTORY: FERTILITY CHECK,? ENDOMETRIAL LINING SIZE AND THICKNESS,CYST CHECK,BASAL. TECHNIQUE: Transabdominal and transvaginal pelvic ultrasound was performed using standard protocol. COMPARISON: There are no previous for comparison. FINDINGS: UTERUS: Position: Anteverted. Size: 7.9 long by 5.0 AP by 6.3 transverse cm Endometrium: 0.3 cm. Normal for patient's menstrual status. The endometrial stripe does not have a tr ilaminar appearance at this time. Myometrium: There is a 1 x 0.7 x 0.7 cm hypoechoic mass in the anterior body, likely representing a u terine fibroid. Cervix: Unremarkable. OVARIES: Right: 3.2 x 1.3 x 1.9 cm Cyst or mass: 3 small (less than 4 mm) functional cysts are seen. Left: 4.6 x 2.8 x 4.1 cm Cyst or mass: There are several small (less than 4 mm) functional cysts seen. There is a 3 x 2.9 x 3. 4 cm dominant simple cyst present. DOPPLER: Color: Symmetric and uniform flow to both ovaries. No hyperemia. CUL-DE-SAC: Free fluid: None. Other: None. IMPRESSION: 1. Normal-appearing uterus with endometrial stripe as described above. 2. Unremarkable bilateral ovaries with a 3.4 cm dominant simple cyst on the left ovary. DATA REPOSITORY:
== END 2020-04-17 01:00 | disposition home or self-care (01) ==
LOC: DI 00:59
PROVIDERS: PCP Internal Medicine
DX: N83.292 Other ovarian cyst, left side (principal)
CPT/HCPCS: 76830; 76856

== ENCOUNTER 2020-04-17 03:59 | Outpatient (CLI) | payer BC, SELFPAY ==
[2020-04-17 08:57] LABS: HCG Quant, Pregnancy < 1 mIU/mL (1-3)
[2020-04-17 18:14] LABS: Progesterone 0.3 ng/mL (See Table)
[2020-04-18 12:29] LABS: Estradiol Rapid, Immunoassay <25.0 pg/mL
== END 2020-04-17 04:00 | disposition home or self-care (01) ==
LOC: LBO 03:59
PROVIDERS: PCP Internal Medicine; Visit Provider Internal Medicine
DX: Z31.89 Encounter for other procreative management (principal)
CPT/HCPCS: 36415; 82670; 84144; 84702

== ENCOUNTER 2020-05-01 01:10 | Outpatient (CLI) | payer BC, SELFPAY ==
--- NOTE | 2020-05-01 | DI.US_ITS ---
EXAM: US PELVIS TRANSVAGINAL CLINICAL HISTORY: FERTILITY CHECK,MEASURE ANY CYSTS,UTERINE THICKNESS,TYPE,OVARIES AND UTERUS TECHNIQUE: Ultrasound of the pelvis was performed both transabdominal and transvaginal. COMPARISON: US US PELVIS TRANSVAGINAL from 04/17/2020 FINDINGS: UTERUS: Measures 8.8 cm length x 5.6 cm AP x 6 cm wide. There are no uterine fibroids. Endometrial thickness measures 8 mm. There is no fluid in the endometrial canal. CERVIX: There are no obvious nabothian cysts. RIGHT OVARY: Measures 2 x 1.4 x 1.0 cm Contains 5 small follicles LEFT OVARY: Measures 3.2 x 2.0 x 1.9 cm Contains 9 follicles. The largest follicle is in the left ovary and measures 9 x 11 x 12 millimeters. CUL-DE-SAC: No extraovarian adnexal masses and no free fluid. IMPRESSION: 1. Largest follicle is in the left kidney and measures 9 x 11 x 12 millimeters. 2. Endometrial stripe thickness is 8 millimeters no fluid in the endometrial canal. 3. No free fluid evident in the adnexal regions and cul-de-sac. DATA REPOSITORY:
== END 2020-05-01 01:11 ==
LOC: DI 01:11
PROVIDERS: PCP Internal Medicine
DX: N83.01 Follicular cyst of right ovary (principal); N83.02 Follicular cyst of left ovary; Z31.89 Encounter for other procreative management
CPT/HCPCS: 76830; 76856

== ENCOUNTER 2020-05-01 02:46 | Outpatient (CLI) | payer BC, SELFPAY ==
[2020-05-01 18:12] LABS: Progesterone 0.3 ng/mL (See Table)
[2020-05-03 09:39] LABS: Estradiol Rapid, Immunoassay 629 pg/mL
== END 2020-05-01 02:47 | disposition home or self-care (01) ==
LOC: LBO 02:46
PROVIDERS: PCP Internal Medicine; Visit Provider Internal Medicine
DX: Z31.89 Encounter for other procreative management (principal)
CPT/HCPCS: 36415; 82670; 84144

== ENCOUNTER 2020-05-19 04:25 | Outpatient (CLI) | payer BC, SELFPAY ==
[2020-05-19 08:24] LABS: HCG Quant, Pregnancy 109 mIU/mL (1-3)
[2020-05-19 16:49] LABS: Progesterone 45.1 ng/mL (See Table)
[2020-05-20 12:41] LABS: Estradiol Rapid, Immunoassay 458 pg/mL
== END 2020-05-19 04:26 | disposition home or self-care (01) ==
PROVIDERS: PCP Internal Medicine; Visit Provider Obstetrics & Gynecology
DX: Z31.89 Encounter for other procreative management (principal)
CPT/HCPCS: 36415; 82670; 84144; 84702

== ENCOUNTER 2020-05-21 07:21 | Outpatient (CLI) | payer BC, SELFPAY ==
[2020-05-21 10:52] LABS: HCG Quant, Pregnancy 236 mIU/mL (1-3)
[2020-05-22 17:26] LABS: Estradiol Rapid, Immunoassay 1821 pg/mL
== END 2020-05-21 07:22 | disposition home or self-care (01) ==
LOC: LBO 07:22
PROVIDERS: PCP Internal Medicine; Visit Provider Obstetrics & Gynecology
DX: Z31.89 Encounter for other procreative management (principal)
CPT/HCPCS: 36415; 82670; 84144; 84702

== ENCOUNTER 2020-06-05 02:55 | Outpatient (CLI) | payer BC, SELFPAY ==
[2020-06-05 08:15] LABS: HCG Quant, Pregnancy 10727 mIU/mL (1-3)
[2020-06-05 17:27] LABS: Progesterone 52.5 ng/mL (See Table)
[2020-06-06 14:31] LABS: Estradiol Rapid, Immunoassay 568 pg/mL
== END 2020-06-05 02:56 | disposition home or self-care (01) ==
LOC: LBO 02:56
PROVIDERS: PCP Nurse Practitioner Family; Visit Provider Obstetrics & Gynecology
DX: Z31.89 Encounter for other procreative management (principal)
CPT/HCPCS: 36415; 82670; 84144; 84702

== ENCOUNTER 2020-06-12 01:57 | Outpatient (CLI) | payer BC, SELFPAY ==
--- NOTE | 2020-06-12 | DI.US_ITS ---
EXAM: US OB TRANSVAGINAL INDICATION: ,Z31.89,PROCREATIVE MANAGEMENT,ASSESS OVARIES ANDUTERUS. COMPARISON: Prior study June 05, 2020 TECHNIQUE: Transvaginal pelvic ultrasound was performed and compared to the prior study of . FINDINGS: Transvaginal pelvic ultrasound again reveals an intrauterine gestational sac which again contains yol k sac and a tiny pole. However, on today's study there was no heart rate detectable. 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 Gestational sac measurement i s again 5 weeks and 5 days. Again noted is a subchorionic hemorrhage present measuring 4.2 x 1.2 x 3. 6 cm. Previously described small anterior myometrial fibroid is again noted. Right ovary measures 2.2 x 1.9 x 1.5 cm. Left ovary measures 0.8 x 1.5 x 2.1 cm. There are no significant ovarian masses. No free fluid in the cul-de-sac IMPRESSION: Intrauterine gestation with prominent subchorionic hemorrhage. Doubtful viability, given that t here does not appear to be progression from the prior study and there is presently no heart rat e recorded. No abnormal adnexal findings.
== END 2020-06-12 02:17 ==
PROVIDERS: PCP Nurse Practitioner Family; Visit Provider Obstetrics & Gynecology
DX: O03.9 Complete or unspecified spontaneous abortion without complication (principal)
CPT/HCPCS: 76817

== ENCOUNTER 2020-06-12 03:18 | Outpatient (CLI) | payer BC, SELFPAY ==
[2020-06-12 22:07] LABS: Progesterone 20.5 ng/mL (See Table)
[2020-06-13 18:43] LABS: Estradiol Rapid, Immunoassay 538 pg/mL
== END 2020-06-12 03:19 | disposition home or self-care (01) ==
LOC: LBO 03:18
PROVIDERS: PCP Nurse Practitioner Family; Visit Provider Obstetrics & Gynecology
DX: Z31.89 Encounter for other procreative management (principal)
CPT/HCPCS: 36415; 82670; 84144

== ENCOUNTER 2020-06-18 02:55 | Outpatient (CLI) | payer BC, SELFPAY ==
[2020-06-18 12:05] LABS: Source Nasal/Nares
[2020-06-18 18:17] LABS: COVID-19 PCR Negative (Negative)
== END 2020-06-18 02:56 | disposition home or self-care (01) ==
LOC: LBO 02:55
PROVIDERS: PCP Nurse Practitioner Family; Visit Provider Obstetrics & Gynecology Gynecology
DX: Z20.822 Contact with and (suspected) exposure to COVID-19 (principal); Z01.818 Encounter for other preprocedural examination
CPT/HCPCS: 87635

== ENCOUNTER 2020-06-18 07:53 | Outpatient (CLI) | payer BC, SELFPAY ==
[2020-06-18 15:38] LABS: HCT 37.7 % (36.0-46.0); HGB 12.8 g/dL (11.2-15.7); MCH 29.1 pg (27.0-33.0); MCV 85.7 fL (80-95); MPV 9.6 fL (8.0-11.0); Platelet Count 264 10^3/uL (130-400); RDW 12.2 % (11.7-14.6); RDW-SD 37.7 fL; WBC 8.47 10^3/uL (4.4-10.8)
== END 2020-06-18 07:54 | disposition home or self-care (01) ==
LOC: LBO 07:55
PROVIDERS: PCP Nurse Practitioner Family; Visit Provider Obstetrics & Gynecology Gynecology
DX: O02.1 Missed abortion (principal); Z01.818 Encounter for other preprocedural examination; Z01.812 Encounter for preprocedural laboratory examination
CPT/HCPCS: 36415; 85027; 86850; 86900; 86901

== ENCOUNTER 2020-06-20 11:26 | Day surgery (SDC) | payer BC, SELFPAY ==
--- NOTE | 2020-06-20 08:00 | HPE_ITS ---
Date of service: 06/20/20 Time of Service: 08:01 Assessment and Plan Assessment and plan (1) Miscarriage: Status: Acute Assessment and plan: Patient has an embryonic demise at approximately 7 weeks. A attempt at medical management of her demise was unsuccessful and she has consented to a cervical dilation and uterine suction curettage. The risks of the procedure were discussed with the patient including the risk of infection damage to uterus and surrounding structures including injury to the bowel and bladder blood vessels and ureters. Informed consent was obtained her questions were answered. She vomited the oral Doxycycline she was given prior to arrival at the hospital. She will have one dose of Doxycycline 100mg IV prior to the surgery. History of Present Illness History of Present Illness Chief Complaint: Embryonic demise Narrative: Patient is a 39-year-old 65P4 female who presents for a suction D&C for embryonic demise. Patient is a gestational carrier with an embryonic transfer performed on 05/09/20. She was diagnosed with a embryonic demise at approximately 7 weeks estimated gestational age on 06/13/2020. She received 2 doses of misoprostol 800 mcg vaginally over the course of 24 hours which did not result in a passage of tissue. She has requested a D&C. Review of Systems All systems reviewed & are unremarkable except as noted in HPI and below PFSH Medical History Depression (09/26/12) Endometriosis Uses oral contraception Surgical History Biopsy of breast (~2002) L breast. B9. Diagnostic Laproscopy (~2000) laparoscopy for endometriosis Tooth extraction wisdom teeth. 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 Date GA/Weeks # Outcome Route Wgt Sex Labor Lgth Anesthes ia Location Prov Complic 06/22/09 39 No Successful vaginal 8 lb 2 oz Female 36 hrs [facility] 10/13/11 Unsuccessful 11/08/12 40 No Successful vaginal 9 lb 5 oz Male 28 hrs [facility] 05/06/16 40 No Successful vaginal 7 lb 2 hrs [facility] 03/10/18 37 Yes Successful vaginal 6 lb 2 oz Female 13 hrs 49 min 03/10/18 Yes Successful vaginal Male 13hrs 49 min [facility] Delivery Date: 06/22/09 No notes to display Delivery Date: 10/13/11 Sumaya Alberto RN Delivery Date: 11/08/12 No notes to display Delivery Date: 05/06/16 surrogate Sumaya Lilly RN Delivery Date: 03/10/18 No notes to display Delivery Date: 03/10/18 double footling breech twin delivery male [place] [employer],Nae Meds Home Medications and Allergies Allergies Allergy/AdvReac Type Severity Reaction Status Date / Time penicillin G Allergy Mild RASH,DIZZIN Unverified 06/20/20 11:34 ESS DUST Allergy Mild HIVES,WATERY Uncoded 06/20/20 11:34 EYES, SNEEZING seasonal allergies Allergy Unknown Uncoded 06/20/20 11:34 Home Medications Medication Instructions Recorded Confirmed Type PNV cmb#95-ferrous fumarate-FA 1 ea PO DAILY 09/01/17 06/20/20 History [] acetaminophen 500 mg tablet 1,000 mg PO Q6H PRN tab 12/19/17 06/20/20 History doxycycline hyclate 100 mg capsule 100 mg PO .COMPLEX #3 cap 06/20/20 06/20/20 Rx Exam Narrative Exam Narrative: Minimal cramping lower uterine bleeding since receiving misoprostol. Const General: no acute distress Nutritional Appearance: average body habitus Orientation: alert, awake and oriented x3 Neck Thyroid: thyroid normal Resp Effort & Inspection: normal respiratory effort Auscultation: clear to auscultation bilaterally Cardio Rate: regular rate Rhythm: regular rhythm GI Palpation: soft, no hepatosplenomegaly, no masses and nontender General: deferred Skin General skin exam: no rashes or lesions noted Extrem General: normal to inspection Psych Appearance: grossly normal Mental Status: mental status grossly normal Speech and Movement: speech and movement normal Mood: congruent mood Affect: normal affect Attitude: cooperative Thought Process: normal Thought Content: normal Judgment: judgment good COVID-19 Screening Have you, or household traveled for leisure in last 14 days?: No Had IN PERSON contact w/suspected or confirmed C-19 person: No
[2020-06-20 11:33] VITALS: BP 111/68; PULSE 94; RESP 16; TEMP 37.1; O2SAT 100
[2020-06-20] MEDS: Lactated Ringers 1,000 ML 125 ML IV (12:03)
[2020-06-20] MEDS: DOXYCYCLINE 100 MG in Normal Saline 100 ML IVPB (12:03)
[2020-06-20] MEDS: Bupivacaine 0.25% Pres-Free 30 ML VIAL (13:00)
--- NOTE | 2020-06-20 13:25 | POCSPONT_PTH ---
PATIENT: Flower Cali LOC: [facility] U#:[id number] AGE/SX: 39/F ROOM: RE06/20/[address]: Ramya Sutton : 1980 BED: DIS: 06/20/2020 SPEC #: [id number] RECD: 06/20/20 15:54 STATUS: CHARLENE RELisa #: [id number] REGINE: 06/20/20 13:[address]: Ramya Sutton DEPT: Surgical Specimen RECD BY: Christa Mathew ENTERED: 06/20/20 15:55 SP TYPE: DIANA CORONA DR: Valentino Reyes Tissues: 1 - ,SPONTANEOUS Procedures: GROSS AND MICRO LEVEL 4 Comments: [id number]
[2020-06-20] MEDS: Silver Nitrate Stick 1 EACH (13:30)
[2020-06-20 13:35] VITALS: BP 116/76; PULSE 72; RESP 20; TEMP 36.3; O2SAT 98
[2020-06-20 13:40] VITALS: BP 115/71; PULSE 72; RESP 20; TEMP 36.3; O2SAT 100
[2020-06-20 13:45] VITALS: BP 115/71; PULSE 71; RESP 19; TEMP 36.4; O2SAT 99
[2020-06-20 14:00] VITALS: BP 111/66; PULSE 69; RESP 15; TEMP 36.4; O2SAT 100
--- NOTE | 2020-06-20 14:22 | W.PM.DSUDISC ---
Discharge Plan Disposition Patient Disposition: HOME Condition: Good Discharge Details Attending Provider: Ramya Sutton Primary Care Provider: Valentino Reyes Home Meds and New Rx's Prescriptions: No Action doxycycline hyclate 100 mg capsule 100 mg PO .COMPLEX Qty: 3 RF: 0 acetaminophen [Tylenol Extra Strength] 500 mg tablet 1,000 mg PO Q6H PRNRF: 0 PNV cmb#95-ferrous fumarate-FA [] 1 EACH tablet 1 ea PO DAILY RF: 0 Discharge Instructions Additional Instructions: [facility] Make an appointment to have your blood drawn prior to the office visit. It can be the same day or the day before the order will be in the computer. Stand Alone Forms: Anesthesia Discharge Inst., DSU Post Gynecology SurgeryRekha (DSU) Activity:: Activity as Tolerated Diet:: As Tolerated Discharge Orders Discharge Orders: Discharge Order (Routine); Ordered 06/20/20 Ordered By: Ramya Sutton DS: Diagnosis Discharge Diagnosis (1) Miscarriage: Status: Acute (2) History of D&C: Status: Acute
[2020-06-20 14:33] VITALS: BP 110/75; PULSE 83; RESP 16; TEMP 37.1; O2SAT 100
--- NOTE | 2020-06-21 17:18 | W.PM.OP ---
Date of service: 06/21/20 Time of Service: 17:19 Operative Note Operative Note DATE OF PROCEDURE: 06/20/20 PRE-OP DIAGNOSIS: demise at 7 weeks estimated stational age POST-OP DIAGNOSIS: same PROCEDURE: Cervical dilatation and suction evacuation of uterine contents SURGEON: Ramya Sutton ANESTHESIA TYPE: MAC Refer to Anesthesia Record ESTIMATED BLOOD LOSS: 5 PATHOLOGY: other (Products of conception to pathology) COMPLICATIONS: None Patient was transported to: same day Patient's condition: stable Indications: Patient is a 39-year-old 65P4 female who is a gestational carrier with an embryonic transfer performed on 05/09/20. She was diagnosed with a embryonic demise at approximately 7 weeks estimated gestational age on 06/13/2020. She received 2 doses of misoprostol 800 mcg vaginally over the course of 24 hours which did not result in a passage of tissue. She has requested a D&C. Findings: Uterus sounds to 10 cm vaginal vault has small amount of blood and mucus. Cervix is not dilated. Procedure Description: Patient was brought to the operating room where she was placed in the dorsal supine position and monitored anesthesia care was administered without difficulty. Surgical timeout was performed. Patient received doxycycline IV on entry into the OR. She was placed in the dorsolithotomy position in yellowfin stirrups prepped and draped in the usual sterile fashion. During the prep it was noted that there was a fine maculopapular rash on the trunk and abdomen. The doxycycline fusion was discontinued. She received approximately 49 mg of the 100 mg dose. A bivalve speculum was placed in the vagina and the body of the cervix was infiltrated with quarter percent Marcaine without epinephrine. A single-tooth tenaculum was used to grasp the anterior lip of the cervix and a paracervical block was performed with a total of 5 cc of quarter percent Marcaine infiltrated at the 4 and 8:00 vaginal cervical interface respectively. Uterus was sounded and the cervix was sequentially dilated to a maximum of 16 [place]. A #8 curved suction cannula was attached to suction and the correct pressure was checked. Cannula was then introduced into the uterine cavity attached to suction and all 4 quadrants of the uterine cavity was sequentially curetted. Moderate amount of products of conception were returned. Suction was discontinued the suction cannula removed and a gentle curetting of all 4 quadrants of the uterine cavity was performed with no tissue returned. A final suction curetting of the uterine cavity was performed with no tissue returned. Instruments were removed from the patient vagina tenaculum site was treated with silver nitrate and was hemostatic at the completion of the treatment. She was placed in the dorsal supine position successfully awakened and transported recovery area in stable condition all sponge lap needle counts correct x2. Patient was notified in the recovery room that she has a likely allergy to doxycycline.
== END 2020-06-20 14:56 | disposition home or self-care (01) ==
PROVIDERS: PCP Nurse Practitioner Family; Visit Provider Obstetrics & Gynecology Gynecology
PROC: (CPT 59841; principal; 2020-06-20 12:30)
DX: O03.4 Incomplete spontaneous abortion without complication (principal); Z3A.01 Less than 8 weeks gestation of pregnancy
CPT/HCPCS: 59812; 88305; NC; J1200; J1885; J2001; J2250; J2405; J2704

== ENCOUNTER 2020-07-08 03:20 | Outpatient (CLI) | payer BC, SELFPAY ==
[2020-07-08 09:14] LABS: HCG Quant, Pregnancy 5 mIU/mL (1-3)
== END 2020-07-08 03:21 | disposition home or self-care (01) ==
LOC: LBO 03:20
PROVIDERS: PCP Nurse Practitioner Family; Visit Provider Obstetrics & Gynecology Gynecology
DX: O03.9 Complete or unspecified spontaneous abortion without complication (principal)
CPT/HCPCS: 36415; 84702

== ENCOUNTER 2020-08-07 01:43 | Outpatient (CLI) | payer BC, SELFPAY ==
--- NOTE | 2020-08-07 07:30 | DI.US_ITS ---
Exam(s) US SONOHYSTEROGRAM EXAM: US SONOHYSTEROGRAM CLINICAL HISTORY: pt desires ,ENCOUNTER FOR PROCREATIVE MANAGEMENT,Z31.9. TECHNIQUE: Ultrasound visualization was provided during sonohysterogram performed by Dr. Sutton. The radiologist was not present COMPARISON: US US OB TRANSVAGINAL from 06/12/2020 FINDINGS: UTERUS: Nongravid, measuring 7.8 cm length by 4.8 cm AP by 4.3 cm wide there are no obvious uterine f ibroids. Endometrial thickness is approximately 3 millimeters. Right ovary measures 3.4 x 1.8 x 1.5 cm. Contains a few follicular cysts, largest measuring 1.5 cm d iameter. Left ovary measures 3.7 x 1.6 x 1.8 cm. Also contains follicular cysts of similar size. No solid lesions seen in either ovary. No extraovarian adnexal masses. PROCEDURE: Final images of this study reveal introduction of saline into the uterine canal via an ind welling catheter. IMPRESSION: 1. Sonohysterogram was performed by Herman.. 2. Normal-appearing uterus with endometrial stripe within normal limits. 3. Bilateral follicular cysts measuring up to 1.5 cm DATA REPOSITORY:
--- NOTE | 2020-10-17 12:25 | W.PROCNOTE ---
Date of service: 10/17/20 Time of Service: 12:25 Procedure Note Date of procedure: 08/05/20 Procedure: sonohysterogram Surgeon/Proceduralist/Physician: Ramya Sutton Procedure Diagnosis: Desires Procedure Indications: 40yo pt who desires to be a gestational carrier and is undergoing an evaluation of her uterine cavity in anticipation of beginning process of IVF. Procedure Description: After written and verbal consent was obtained the pt was placed in the doral supine position on the radiology table in [facility]. A pillow was placed beneath her coccyx to elevate her hips and a sterile speculum was inserted into the vagina. The cervix was cleansed with Betadine and through it a HSG catheter was inserted into the uterine cavity. A balloon attatched to the tip of the HSG catheter was inflated with Normal Saline and the speculum withdrawn. Under direct Fluoroscopy the contrast material was inserted into the uterus and there was documented spillage of the contrast material from both fallopian tubes. The uterine cavity and both fallopian tubes were noted to be normal with no filling defects. At the completion of the procedure the HSG catheter was deflated and the device removed. All other instruments were removed from the vagina. She tolerated the procedure well. She was assisted with getting off of the table and ambulating to the toilet. The normal findings were discussed with the pt. She will f/u with her [facility] specialists.
== END 2020-08-07 02:03 ==
PROVIDERS: Visit Provider Obstetrics & Gynecology Gynecology
DX: Z31.89 Encounter for other procreative management
CPT/HCPCS: 76831

== ENCOUNTER 2020-09-29 03:20 | Outpatient (CLI) | payer BC, SELFPAY ==
[2020-09-29 14:17] LABS: HCG Quant, Pregnancy < 1 mIU/mL (1-3)
[2020-09-29 22:14] LABS: Progesterone 0.3 ng/mL (See Table)
[2020-09-30 18:21] LABS: Estradiol Rapid, Immunoassay 96.8 pg/mL
== END 2020-09-29 03:21 | disposition home or self-care (01) ==
LOC: LBO 03:21
PROVIDERS: PCP Nurse Practitioner Family; Visit Provider Obstetrics & Gynecology
DX: Z31.89 Encounter for other procreative management (principal)
CPT/HCPCS: 36415; 82670; 84144; 84702

== ENCOUNTER 2020-10-13 02:16 | Outpatient (CLI) | payer BC, SELFPAY ==
[2020-10-13 16:44] LABS: Estradiol 136 pg/mL (See Note); Progesterone 11.6 ng/mL (See Table)
== END 2020-10-13 02:17 | disposition home or self-care (01) ==
LOC: LBO 02:16
PROVIDERS: PCP Nurse Practitioner Family; Visit Provider Obstetrics & Gynecology
DX: Z31.89 Encounter for other procreative management (principal)
CPT/HCPCS: 36415; 82670; 84144

== ENCOUNTER 2020-10-22 03:23 | Outpatient (CLI) | payer BC, SELFPAY ==
[2020-10-22 12:54] LABS: HCG Quant, Pregnancy < 1 mIU/mL (1-3)
[2020-10-22 22:01] LABS: Progesterone 0.4 ng/mL (See Table)
[2020-10-23 19:59] LABS: Estradiol Rapid, Immunoassay 41.5 pg/mL
== END 2020-10-22 03:24 | disposition home or self-care (01) ==
LOC: LOS 03:23
PROVIDERS: PCP Nurse Practitioner Family; Visit Provider Obstetrics & Gynecology
DX: Z31.89 Encounter for other procreative management (principal)
CPT/HCPCS: 36415; 82670; 84144; 84702

== ENCOUNTER 2020-11-06 02:20 | Outpatient (CLI) | payer BC, SELFPAY ==
--- NOTE | 2020-11-06 | DI.US_ITS ---
Exam(s) US TRANSVAGINAL EXAM: US TRANSVAGINAL CLINICAL HISTORY: PROCREATIVE MANAGMENT, UTERINE THICKNESS TECHNIQUE: Ultrasound of the pelvis was performed transvaginal. COMPARISON: Prior ultrasound 10/22/2020 FINDINGS: UTERUS: Nongravid anteverted Measures 9.4 cm length x 4.7 cm AP x 5.8 cm wide. There is a tiny anterior myometrial fibroid measuring 7 x 6 millimeters Endometrial thickness measures 8.3 mm. There is no fluid in the endometrial canal. CERVIX: There are no obvious nabothian cysts. RIGHT OVARY: Measures 3.1 x 2.9 x 1.5 cm No significant cysts nor masses evident in the right ovary. LEFT OVARY: Measures 2.2 x 1.7 x 1.0 cm No significant cysts nor masses evident in the left ovary. CUL-DE-SAC: No free fluid evident. IMPRESSION: 1. Small subcentimeter anterior myometrial fibroid 2. Endometrial thickness 8.3 millimeters (trilaminar) 3. No abnormal adnexal masses. No free fluid. DATA REPOSITORY:
[2020-11-06 17:27] LABS: Estradiol 538 pg/mL (See Note); Progesterone 0.5 ng/mL (See Table)
== END 2020-11-06 02:21 | disposition home or self-care (01) ==
LOC: LBO 02:21
PROVIDERS: PCP Nurse Practitioner Family; Visit Provider Obstetrics & Gynecology
DX: D25.1 Intramural leiomyoma of uterus (principal); Z31.89 Encounter for other procreative management; N85.8 Other specified noninflammatory disorders of uterus
CPT/HCPCS: 36415; 76830; 82670; 84144

== ENCOUNTER 2020-11-24 04:20 | Outpatient (CLI) | payer BC, SELFPAY ==
[2020-11-24 07:44] LABS: HCG Quant, Pregnancy 176 mIU/mL (1-3)
[2020-11-24 17:14] LABS: Progesterone 35.5 ng/mL (See Table)
[2020-11-25 16:33] LABS: Estradiol Rapid, Immunoassay 458 pg/mL
== END 2020-11-24 04:21 | disposition home or self-care (01) ==
LOC: LBO 04:20
PROVIDERS: PCP Nurse Practitioner Family; Visit Provider Obstetrics & Gynecology
DX: Z31.89 Encounter for other procreative management (principal)
CPT/HCPCS: 36415; 82670; 84144; 84702

== ENCOUNTER 2020-11-26 03:14 | Outpatient (CLI) | payer BC, SELFPAY ==
[2020-11-26 16:38] LABS: HCG Quant, Pregnancy 511 mIU/mL (1-3)
[2020-11-26 21:54] LABS: Progesterone 18.2 ng/mL (See Table)
[2020-11-28 10:40] LABS: Estradiol Rapid, Immunoassay 569 pg/mL
== END 2020-11-26 03:15 | disposition home or self-care (01) ==
LOC: LBO 03:14
PROVIDERS: PCP Nurse Practitioner Family; Visit Provider Obstetrics & Gynecology
DX: Z31.89 Encounter for other procreative management (principal)
CPT/HCPCS: 36415; 82670; 84144; 84702

== ENCOUNTER 2020-12-11 03:56 | Outpatient (CLI) | payer BC, SELFPAY ==
[2020-12-11 11:54] LABS: HCG Quant, Pregnancy 75499 mIU/mL (1-3)
[2020-12-11 22:16] LABS: Progesterone 49.9 ng/mL (See Table)
[2020-12-12 18:52] LABS: Estradiol Rapid, Immunoassay 1167 pg/mL
== END 2020-12-11 03:57 | disposition home or self-care (01) ==
LOC: LBO 03:56
PROVIDERS: PCP Nurse Practitioner Family; Visit Provider Obstetrics & Gynecology
DX: Z31.89 Encounter for other procreative management (principal)
CPT/HCPCS: 36415; 82670; 84144; 84702

== ENCOUNTER 2020-12-30 02:49 | Outpatient (CLI) | payer BC, SELFPAY ==
[2020-12-30 18:16] LABS: Progesterone 66.7 ng/mL (See Table)
[2020-12-31 13:39] LABS: Estradiol Rapid, Immunoassay 2171 pg/mL
== END 2020-12-30 02:50 | disposition home or self-care (01) ==
LOC: LBO 02:49
PROVIDERS: PCP Nurse Practitioner Family; Visit Provider Obstetrics & Gynecology
DX: Z31.89 Encounter for other procreative management (principal)
CPT/HCPCS: 36415; 82670; 84144; 84702

== ENCOUNTER 2021-02-17 16:56 | Outpatient (REF) | payer BC, SELFPAY ==
[2021-02-17 17:22] LABS: *AMPHETAMINES SCREEN URINE Negative (Negative); *BARBITURATES SCREEN URINE Negative (Negative); *BENZODIAZEPINES SCREEN URINE Negative (Negative); Cannabinoids THC Negative (Negative); Cocaine Screen,Urine Negative (Negative); METHADONE URINE SCREEN Negative (Negative); OPIATES URINE SCREEN Negative (Negative)
[2021-02-17 17:40] LABS: Tricyclic Antidepressants Negative (Negative)
[2021-02-21 12:31] LABS: Buprenorphine Negative ng/mL (Cutoff: 5.0); Norbuprenorphine Negative ng/mL (Cutoff: 2.5)
== END 2021-02-17 16:57 | disposition home or self-care (01) ==
LOC: LBN 16:56
PROVIDERS: PCP Nurse Practitioner Family; Visit Provider Advanced Practice Midwife
DX: Z34.91 Encounter for supervision of normal pregnancy, unspecified, first trimester (principal)
CPT/HCPCS: 80307; 87086

== ENCOUNTER 2021-03-03 02:27 | Outpatient (CLI) | payer BC, SELFPAY ==
[2021-03-03 08:34] LABS: Abs Immature Grans 0.03 10^3/uL (0.0-0.06); Absolute Basophil Count 0.03 10^3/uL (0.0-0.2); Absolute Eosinophil Count 0.12 10^3/uL (0.0-0.7); Absolute Lymphocyte Count 1.08 10^3/uL (1.2-3.4); Absolute Monocyte Count 0.36 10^3/uL (0.1-0.8); Absolute Neutrophil Count 5.95 10^3/uL (1.2-6.7); Basophils % 0.4; Eosinophils % 1.6; HCT 34.4 % (36.0-46.0); HGB 11.6 g/dL (11.2-15.7); Immature Grans % 0.4; Lymphocytes % 14.3; MCHC 33.7 % (32.0-36.0); MPV 9.9 fL (8.0-11.0); Monocytes % 4.8; Neutrophils % 78.5; Nucleated RBC 0 %; Platelet Count 180 10^3/uL (130-400); RDW 13.6 % (11.7-14.6); RDW-SD 42.1 fL; WBC 7.57 10^3/uL (4.4-10.8)
[2021-03-04 11:02] LABS: Hepatitis B Surface Ag Negative (Negative)
[2021-03-04 11:29] LABS: HIV-1/2 Ag & Ab Screen Negative (Negative)
[2021-03-04 11:43] LABS: Hepatitis C Ab w Rflx HCV PCR Negative (Negative)
[2021-03-05 10:08] LABS: Syphilis Total Ab w/Reflex Nonreactive (Nonreactive)
[2021-03-05 15:39] LABS: Rubella IgG Ab (UVM) Positive (See Note)
[2021-03-05 15:41] LABS: Varicella IgG Antibody Positive (See Note)
== END 2021-03-03 02:28 | disposition home or self-care (01) ==
LOC: LBO 02:27
PROVIDERS: PCP Nurse Practitioner Family; Visit Provider Advanced Practice Midwife
DX: Z34.91 Encounter for supervision of normal pregnancy, unspecified, first trimester (principal)
CPT/HCPCS: 36415; 86787; 86803; 86850; 86900; 86901; 87340; 87389; 85025; 86762; 86780

== ENCOUNTER 2021-04-28 02:08 | Outpatient (CLI) | payer BC, SELFPAY ==
[2021-04-28 07:39] LABS: Abs Immature Grans 0.08 10^3/uL (0.0-0.06); Absolute Basophil Count 0.03 10^3/uL (0.0-0.2); Absolute Eosinophil Count 0.16 10^3/uL (0.0-0.7); Absolute Lymphocyte Count 1.22 10^3/uL (1.2-3.4); Absolute Neutrophil Count 6.45 10^3/uL (1.2-6.7); Basophils % 0.4; Eosinophils % 1.9; HCT 33.2 % (36.0-46.0); HGB 11.2 g/dL (11.2-15.7); Immature Grans % 0.9; Lymphocytes % 14.5; MCH 29.2 pg (27.0-33.0); MCHC 33.7 % (32.0-36.0); MCV 86.7 fL (80-95); MPV 9.8 fL (8.0-11.0); Monocytes % 5.9; Neutrophils % 76.4; Nucleated RBC 0 %; Platelet Count 170 10^3/uL (130-400); RBC 3.83 10^6/uL (3.93-5.22); RDW 13.5 % (11.7-14.6); RDW-SD 41.9 fL; WBC 8.44 10^3/uL (4.4-10.8)
[2021-04-28 07:48] LABS: Glucose,1 Hr (Glucola) 151 mg/dL (80-140)
== END 2021-04-28 02:09 | disposition home or self-care (01) ==
LOC: LBO 02:08
PROVIDERS: Obstetrics & Gynecology; PCP Nurse Practitioner Family; Visit Provider Obstetrics & Gynecology
DX: O30.042 Twin pregnancy, dichorionic/diamniotic, second trimester (principal); Z3A.26 26 weeks gestation of pregnancy
CPT/HCPCS: 36415; 82950; 85025

== ENCOUNTER 2021-05-08 03:58 | Outpatient (CLI) | payer BC, SELFPAY ==
[2021-05-08 09:13] LABS: Glucose 1 Hour 158 mg/dL
[2021-05-08 11:14] LABS: Glucose 3 Hour 147 mg/dL
== END 2021-05-08 03:59 | disposition home or self-care (01) ==
LOC: LBO 03:58
PROVIDERS: PCP Nurse Practitioner Family; Visit Provider Obstetrics & Gynecology
DX: R73.09 Other abnormal glucose (principal)
CPT/HCPCS: 36415; 82951

== ENCOUNTER 2021-05-26 00:59 | Outpatient (CLI) | payer BC, SELFPAY ==
--- NOTE | 2021-05-26 09:12 | W.DIABETESNO ---
Date of service: 05/26/21 Time of Service: 09:12 Diabetes Note Reason for Visit: gdm NOTE: Spoke to Flower on phone today as her family has covid and unable to come in person. CESILIA 08/03/21 with twin gestation and recent dx of GDM. Family hx of NIDDM. Just received her glucometer yesterday. Fasting blood sugar today 112 mg/dl, post prandial levels (1 hour) yesterday 114, 115mg/dl. Diet Recall indicates mostly well balanced healthy meals however high in carbohydrate. Elevated fasting sugar may be due to HS snack last night (cereal, milk, banana) . Educated Flower on how to reduce glycemic index of meals/snacks with focus on protein/fats at meals and snacks. Provided meal plans and written material(emailed). Flower to log her fasting blood sugars and post prandial levels for next 4 days. Will follow up by phone on 05/29/21. Time Spent in Nutritional Counseling and Treatment: 15
--- NOTE | 2021-05-29 09:43 | W.DIABETESNO ---
Date of service: 05/29/21 Time of Service: 09:44 Diabetes Note Reason for Visit: gdm NOTE: Spoke to Luz Elena on phone. She sent in a 5 day food record. Fasting levels 112, 93, 100, 102. Post prandials 102-138 mg/dl. Overall diet well balanced however continues to have high carb HS snack which may be contributing to elevated fasting levels. Provided feed back on lower carb snack options that most likely will help reduce fasting levels. May need insulin if unable to lower fasting sugars. Will continue to follow and support. Time Spent in Nutritional Counseling and Treatment: 10
== END 2021-05-26 01:00 | disposition home or self-care (01) ==
LOC: DS 01:00
PROVIDERS: PCP Nurse Practitioner Family; Visit Provider Dietitian, Registered

== ENCOUNTER 2021-06-01 11:57 | Outpatient (CLI) | payer BC, SELFPAY ==
[2021-06-01 16:43] LABS: ALT 20 U/L (14-59); AST 19 U/L (15-37); Albumin 3.1 g/dL (3.4-5.0); Alkaline Phosphatase 112 U/L (46-116); Anion Gap 11.1 mmol/L (3-11); BUN 4 mg/dL (7-18); Bilirubin, Total 0.3 mg/dL (0.2-1.0); CO2 24.9 mmol/L (21.0-32.0); CREATININE 0.3 mg/dL (0.55-1.02); Calcium 8.3 mg/dL (8.5-10.1); Chloride 100 mmol/L (98-107); Glucose 75 mg/dL (74-106); Potassium 3.4 mmol/L (3.5-5.1); Sodium 136 mmol/L (136-145); Total Protein 6.3 g/dL (6.4-8.2)
--- NOTE | 2021-06-02 11:23 | W.DIABETESNO ---
Date of service: 06/02/21 Time of Service: 11:23 Diabetes Note Reason for Visit: GDM NOTE: Met with Luz Elena at [facility] today. 32 weeks twin gestation with GDM, + 15 lbs. Fasting blood sugars have improved, mostly wnl with increase in protein rich snacks in evening. Has uploaded blood sugar log in patient portal. Weight gain below recommended range, however, typical for her previous successful twin pregnancies in past. Provided written material. Currently, managing GDM with diet and lifestyle changes. Encouraged increase in caloric intake with mostly high fat sources such as olive oil, butter, avacado, hummus, full fat dairy and cheese. If fasting sugars are regularly > 95 mg/dl, will need addition of NPH at bedtime. Will continue to follow up as needed. Time Spent in Nutritional Counseling and Treatment: 10
[2021-06-03 19:04] LABS: Bile Acids, Total 6 mcmol/L (<=10)
--- NOTE | 2021-06-05 13:49 | DIABASSESS_ITS ---
Date of service: 06/05/21 Time of Service: 13:49 Diabetes Note Reason for Visit: gdm NOTE: Met Luz Elena in [facility] today. She has been prescribed 4 units NPH at bedtime for continued elevated fasting BS. Provided education on insulin administration and offered Dexcom 6 continuous glucose monitor to use in conjunction with finger sticks. Will place dexcom at home. Agreeable with remote monitoring. Will continue to follow and support. Time Spent in Nutritional Counseling and Treatment: 10
== END 2021-06-01 11:58 | disposition home or self-care (01) ==
LOC: LBO 11:58
PROVIDERS: PCP Nurse Practitioner Family; Visit Provider Obstetrics & Gynecology
DX: L29.9 Pruritus, unspecified (principal); O99.713 Diseases of the skin and subcutaneous tissue complicating pregnancy, third trimester
CPT/HCPCS: 36415; 80053; 82239

== ENCOUNTER 2021-06-09 16:12 | Observation (INO) | payer BC, SELFPAY ==
[2021-06-09 16:23] VITALS: BP 125/58; PULSE 113; RESP 16; TEMP 37.8
[2021-06-09 16:28] LABS: Source Nasal/Nares
[2021-06-09] MEDS: Lactated Ringers 1,000 ML 150 ML IV ×2 (16:32→17:24)
[2021-06-09] MEDS: Normal Saline Flush 10 ML SYR IVP (16:36)
[2021-06-09] MEDS: Ondansetron 4 MG/2 ML VIAL IVP (16:36)
[2021-06-09 16:45] VITALS: BP 125/58; PULSE 113; RESP 16; TEMP 37.8
[2021-06-09 16:53] VITALS: BP 125/59; PULSE 113; RESP 16; TEMP 37.8
[2021-06-09 16:56] VITALS: BP 125/59; PULSE 113; RESP 16; TEMP 37.8
--- NOTE | 2021-06-09 17:42 | W.PM.PROGNOT ---
Date of Service Date of service: 06/09/21 Time of Service: 17:42 Assessment and Plan Assessment and plan (1) Vomiting affecting : Status: Acute Assessment and plan: Will plan to try some clears and then solids and if tolerating then she can go home. (2) Gestational diabetes: Status: Acute Assessment and plan: Will increase her insulin to 6U QHS and touch base on tuesday via portal with return appt next week. Subjective Subjective Interval history since last seen: Luz Elean started vomiting overnight and has been unable to keep food down all day. Her son had a similar GI bug over the weekend. She came in for hydration and antiemetics. She also was recently started on insulin for GDM. She is taking 4U QHS but still has fasting numbers >100. She has a CGM on now and has been running ~140s most of the day today. She reports she is feeling much better since receiving IVF and zofran. She can actually tolerate ice chips now without nausea. Exam Const General: cooperative, healthy appearing and no acute distress HENPA Head: normocephalic Resp Effort & Inspection: normal respiratory effort and able to speak in complete sentences Neuro General: patient alert, patient awake and patient oriented x3 Psych Appearance: grossly normal Mental Status: mental status grossly normal Speech and Movement: speech and movement normal Mood: congruent mood Affect: normal affect Attitude: cooperative Thought Process: normal Thought Content: normal Objective Last Vital Signs Temp 100.1 F H 06/09/21 16:56 Pulse 113 H 06/09/21 16:56 Resp 16 06/09/21 16:56 BP 125/59 L 06/09/21 16:56 Laboratory Results - last 24 hr 06/09/21 16:04 COVID-19 Source Nasal/Nares
--- NOTE | 2021-06-09 18:07 | NUR.NOTE ---
pt able to keep gingerale down. Had 2 crackers and feeling a little nauseas, will continue to monitor Nursing Note:
--- NOTE | 2021-06-09 18:31 | NUR.NOTE ---
pt currently sleeping Nursing Note:
[2021-06-09 19:36] VITALS: BP 104/55; PULSE 119; RESP 20; TEMP 36.8; O2SAT 100
[2021-06-09 19:38] VITALS: BP 104/55; PULSE 119; RESP 20; TEMP 36.8; O2SAT 100
[2021-06-10 07:42] LABS: COVID-19 PCR Negative (Negative)
--- NOTE | 2021-06-11 14:14 | W.OBNST ---
Date of service: 06/09/21 Time of Service: 17:30 NST Evaluation Reason for NST Reasons for Nonstress Test: OTHER, SEE COMMENT (nausea/vomiting) Gestational Age Gestational Age in Weeks and Days: 32 Weeks and 1Days NST Information Contraction Frequency: irritability NST Evaluation Patient States Movement: Present FHR Baseline: 155 Variability: Moderate 6-25 bpm Accelerations: 15x15 Decelerations: None NST Results: Reactive NST Evaluation Baby B Patient States Movement: Present FHR Baseline: 150 Variability: Moderate 6-25 bpm Accelerations: 15x15 Decelerations: None NST Results: Reactive Note NST Note NST Reviewed and Verified by: Marilin Joshi
== END 2021-06-09 20:30 | disposition home or self-care (01) ==
PROVIDERS: Obstetrics & Gynecology; Admitting Provider Obstetrics & Gynecology; PCP Nurse Practitioner Family; Visit Provider Obstetrics & Gynecology
DX: O21.2 Late vomiting of pregnancy (principal); Z3A.32 32 weeks gestation of pregnancy; O24.414 Gestational diabetes mellitus in pregnancy, insulin controlled; Z20.822 Contact with and (suspected) exposure to COVID-19
CPT/HCPCS: 59025; 87635; 96360; 96361; G0378; J2405

== ENCOUNTER 2021-06-23 06:22 | Outpatient (CLI) | payer BC, SELFPAY ==
[2021-06-23 09:35] VITALS: BP 120/59; PULSE 100; RESP 18; TEMP 37; O2SAT 98
[2021-06-23 09:36] VITALS: BP 120/59; PULSE 100; PULSE 107
[2021-06-23 09:37] VITALS: PULSE 102; O2SAT 98
[2021-06-23 10:01] VITALS: BP 120/59; PULSE 100; TEMP 37
--- NOTE | 2021-06-23 10:13 | W.OBNST ---
Date of service: 06/23/21 Time of Service: 10:13 NST Evaluation Reason for NST Reasons for Nonstress Test: GDM-DIET CONTROLLED and MULTIPLE GESTATION Gestational Age Gestational Age in Weeks and Days: 34 Weeks and 1Days Test and Monitor Explained Test/Monitor Explained: Test Explained, Monitor Explained and Patient Verbalized Understanding Vital Signs Blood Pressure: 120/59 Pulse: 100 Temperature: 98.6 F NST Information Date on Monitor: 06/23/21 Time on Monitor: 08:40 Date off Monitor: 06/23/21 Time off Monitor: 09:43 Total Time on Monitor: 63 NST Interventions: PO Hydration Contraction Frequency: none NST Evaluation Patient States Movement: Present FHR Baseline: 145 Variability: Moderate 6-25 bpm Accelerations: 15x15 Decelerations: None NST Results: Reactive NST Evaluation Baby B Patient States Movement: Present FHR Baseline: 135 Variability: Moderate 6-25 bpm Accelerations: 15x15 Decelerations: None NST Results: Reactive Note NST Note Note: Both babies category 1 strip, reactive NST. Doing well. No contractions. Glycemic control discussed. Mode of delivery discussed. Follow-up on Tuesday as scheduled. NST Reviewed and Verified by: Maranda Shields
[2021-06-23 10:14] VITALS: BP 120/59; PULSE 100; TEMP 37
== END 2021-06-23 09:50 | disposition home or self-care (01) ==
LOC: BCD 06:25 → OBS 08:41
PROVIDERS: PCP Nurse Practitioner Family; Visit Provider Obstetrics & Gynecology
DX: O24.414 Gestational diabetes mellitus in pregnancy, insulin controlled (principal); O30.043 Twin pregnancy, dichorionic/diamniotic, third trimester; Z3A.34 34 weeks gestation of pregnancy
CPT/HCPCS: 59025

== ENCOUNTER 2021-06-26 06:52 | Outpatient (CLI) | payer BC, SELFPAY ==
[2021-06-26 13:45] VITALS: BP 126/75; PULSE 112; TEMP 37.3
[2021-06-26 13:49] VITALS: BP 126/75; PULSE 112
== END 2021-06-26 15:00 | disposition home or self-care (01) ==
LOC: BCD 06:53 → OBS 13:40
PROVIDERS: PCP Nurse Practitioner Family; Visit Provider Obstetrics & Gynecology
DX: O30.043 Twin pregnancy, dichorionic/diamniotic, third trimester (principal)
CPT/HCPCS: 59025

== ENCOUNTER 2021-06-30 05:22 | Outpatient (CLI) | payer BC, SELFPAY ==
[2021-06-30 09:02] VITALS: BP 121/57; PULSE 111; TEMP 208.4; TEMP 98
[2021-06-30 09:03] VITALS: BP 121/57; PULSE 111
[2021-06-30 09:47] VITALS: BP 121/57; PULSE 111; TEMP 208.4; TEMP 98
--- NOTE | 2021-06-30 09:51 | W.OBNST ---
Date of service: 06/30/21 Time of Service: 09:51 NST Evaluation Reason for NST Reasons for Nonstress Test: GDM-INSULIN and MULTIPLE GESTATION Gestational Age Gestational Age in Weeks and Days: 35 Weeks and 1Days Test and Monitor Explained Test/Monitor Explained: Test Explained, Monitor Explained and Patient Verbalized Understanding Vital Signs Blood Pressure: 121/57 Pulse: 111 Temperature: 208.4 F NST Information Date on Monitor: 06/30/21 Time on Monitor: 09:00 Date off Monitor: 06/30/21 Time off Monitor: 09:21 Total Time on Monitor: 21 NST Interventions: PO Hydration Contraction Frequency: irritability NST Evaluation Patient States Movement: Present FHR Baseline: 140 Variability: Moderate 6-25 bpm Accelerations: 15x15 Decelerations: None NST Results: Reactive NST Evaluation Baby B Patient States Movement: Present FHR Baseline: 130 Variability: Moderate 6-25 bpm Accelerations: 15x15 Decelerations: None NST Results: Reactive Note NST Note Note: Category 1, reactive nonstress test for both baby A, and B. Some uterine irritability noted. Will send urinalysis. Continue rest and hydration. Follow-up twice weekly as scheduled. Planned labor induction 07/22/2021. NST Reviewed and Verified by: Maranda Shields
[2021-06-30 09:52] VITALS: BP 121/57; PULSE 111; TEMP 208.4; TEMP 98
[2021-06-30 09:55] LABS: Bilirubin Negative (Negative); Blood Negative (Negative); Clarity Sl Cloudy (Clear); Glucose Negative (Negative); Ketones Negative (Negative); Leukocyte Esterase Small (Negative); Nitrite Negative (Negative); Specific Gravity 1.025 (1.005-1.025); Urobilinogen 0.2 EU/dL (Up TO 0.2)
[2021-06-30 10:03] LABS: Bacteria Moderate HPF (Negative); C & S Indicated? No/Sq. Contamination; Casts Negative LPF (Negative); Crystals Negative HPF (Negative); Epithelial Cells Many HPF (Negative); Mucus Negative (Negative); Other Cells Negative (Negative); RBC Negative HPF (0-2)
--- NOTE | 2021-07-01 10:01 | W.OBNST ---
Date of service: 07/01/21 Time of Service: 10:03 NST Evaluation Reason for NST Reasons for Nonstress Test: GDM-INSULIN and MULTIPLE GESTATION Gestational Age Gestational Age in Weeks and Days: 35 Weeks and 1Days Test and Monitor Explained Test/Monitor Explained: Test Explained, Monitor Explained and Patient Verbalized Understanding Vital Signs Blood Pressure: 121/57 Pulse: 111 Temperature: 208.4 F NST Information Date on Monitor: 06/30/21 Time on Monitor: 09:00 Date off Monitor: 06/30/21 Time off Monitor: 09:21 Total Time on Monitor: 21 NST Interventions: PO Hydration Contraction Frequency: irritability NST Evaluation Patient States Movement: Present FHR Baseline: 140 Variability: Moderate 6-25 bpm Accelerations: 15x15 Decelerations: None NST Results: Reactive NST Evaluation Baby B Patient States Movement: Present FHR Baseline: 130 Variability: Moderate 6-25 bpm Accelerations: 15x15 Decelerations: None NST Results: Reactive Note NST Note Note: Satisfactory glycemic control. No changes in insulin dose. Patient will continue with twice weekly NSTs. NST Reviewed and Verified by: Ramya Sutton
[2021-07-01 10:02] VITALS: BP 121/57; PULSE 111; TEMP 208.4; TEMP 98
[2021-07-01 13:05] LABS: Chlamydia Result Negative (Negative); GC Result Negative (Negative)
== END 2021-06-30 10:12 | disposition home or self-care (01) ==
LOC: BCD 05:23 → OBS 08:55
PROVIDERS: Advanced Practice Midwife; Obstetrics & Gynecology; PCP Nurse Practitioner Family; Visit Provider Obstetrics & Gynecology Gynecology
DX: O24.414 Gestational diabetes mellitus in pregnancy, insulin controlled (principal); O30.043 Twin pregnancy, dichorionic/diamniotic, third trimester; Z3A.25 25 weeks gestation of pregnancy
CPT/HCPCS: 59025; 87491; 87591; 81003; 81015

== ENCOUNTER 2021-07-03 06:30 | Outpatient (CLI) | payer BC, SELFPAY ==
[2021-07-03 13:02] VITALS: BP 113/70; PULSE 106; TEMP 37
[2021-07-03 13:57] VITALS: BP 113/70; PULSE 106
--- NOTE | 2021-07-03 16:18 | W.OBNST ---
Date of service: 07/03/21 Time of Service: 13:00 NST Evaluation Reason for NST Reasons for Nonstress Test: MULTIPLE GESTATION Gestational Age Gestational Age in Weeks and Days: 35 Weeks and 4Days Test and Monitor Explained Test/Monitor Explained: Test Explained, Monitor Explained and Patient Verbalized Understanding Vital Signs Blood Pressure: 113/70 Pulse: 106 Temperature: 98.6 F NST Information Date on Monitor: 07/03/21 Time on Monitor: 13:00 Date off Monitor: 07/03/21 Time off Monitor: 14:12 Total Time on Monitor: 72 NST Interventions: PO Hydration and Reposition Patient NST Evaluation Patient States Movement: Present FHR Baseline: 135 Variability: Moderate 6-25 bpm Accelerations: 15x15 Decelerations: None NST Results: Reactive NST Evaluation Baby B Patient States Movement: Present FHR Baseline: 130 Variability: Moderate 6-25 bpm Accelerations: 15x15 Decelerations: None NST Results: Reactive Note NST Note Note: NST for 36wk twins. Reactive NST Reviewed and Verified by: Marilin Joshi
[2021-07-03 16:21] VITALS: BP 113/70; PULSE 106; TEMP 37
== END 2021-07-03 14:15 | disposition home or self-care (01) ==
LOC: BCD 06:30 → OBS 13:01
PROVIDERS: PCP Nurse Practitioner Family; Visit Provider Obstetrics & Gynecology
DX: O30.043 Twin pregnancy, dichorionic/diamniotic, third trimester (principal); Z3A.35 35 weeks gestation of pregnancy
CPT/HCPCS: 59025

== ENCOUNTER 2021-07-07 07:15 | Outpatient (CLI) | payer BC, SELFPAY ==
[2021-07-07 10:22] VITALS: BP 125/74; PULSE 93
[2021-07-07 10:57] LABS: *AMPHETAMINES SCREEN URINE Negative (Negative); *BARBITURATES SCREEN URINE Negative (Negative); *BENZODIAZEPINES SCREEN URINE Negative (Negative); Cannabinoids THC Negative (Negative); Cocaine Screen,Urine Negative (Negative); METHADONE URINE SCREEN Negative (Negative); OPIATES URINE SCREEN Negative (Negative); Tricyclic Antidepressants Negative (Negative)
--- NOTE | 2021-07-07 11:53 | PDOC.NST_ITS ---
Date of service: 07/07/21 Time of Service: 11:53 NST Evaluation Reason for NST Reasons for Nonstress Test: ADVANCED MATERNAL AGE Reason for NST Other: twins, gdm Gestational Age Gestational Age in Weeks and Days: 36 Weeks and 1Days Test and Monitor Explained Test/Monitor Explained: Test Explained, Monitor Explained and Patient Verbalized Understanding Vital Signs Blood Pressure: 125/74 Pulse: 93 NST Information Date on Monitor: 07/07/21 Time on Monitor: 09:40 Date off Monitor: 07/07/21 Time off Monitor: 10:20 Total Time on Monitor: 40 NST Interventions: None NST Evaluation Patient States Movement: Present FHR Baseline: 135 Variability: Moderate 6-25 bpm Accelerations: 15x15 Decelerations: None NST Results: Reactive NST Evaluation Baby B Patient States Movement: Present FHR Baseline: 130 Variability: Moderate 6-25 bpm Accelerations: 15x15 Decelerations: None NST Results: Reactive Note NST Note Note: NST reactive, category 1 strip x2. Small amount of irritability. 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 Group B strep culture was performed. Continue surveillance. NST Reviewed and Verified by: Maranda Shields
[2021-07-07 11:54] VITALS: BP 125/74; PULSE 93
[2021-07-12 14:04] LABS: Buprenorphine Negative ng/mL (Cutoff: 5.0); Norbuprenorphine Negative ng/mL (Cutoff: 2.5)
== END 2021-07-07 11:00 | disposition home or self-care (01) ==
LOC: BCD 07:16 → OBS 10:03
PROVIDERS: PCP Nurse Practitioner Family; Visit Provider Obstetrics & Gynecology
DX: O09.523 Supervision of elderly multigravida, third trimester (principal); Z3A.36 36 weeks gestation of pregnancy; O24.414 Gestational diabetes mellitus in pregnancy, insulin controlled; O30.043 Twin pregnancy, dichorionic/diamniotic, third trimester
CPT/HCPCS: 59025; 80307; 87081

== ENCOUNTER 2021-07-10 08:52 | Outpatient (CLI) | payer BC, SELFPAY ==
[2021-07-10 15:34] VITALS: BP 124/69; PULSE 99; TEMP 36.7
[2021-07-10 15:49] VITALS: BP 124/69; PULSE 99
[2021-07-10 16:15] VITALS: BP 124/69; PULSE 99; TEMP 36.7
--- NOTE | 2021-07-10 16:15 | W.OBNST ---
Date of service: 07/10/21 Time of Service: 16:15 NST Evaluation Reason for NST Reasons for Nonstress Test: GDM-INSULIN Gestational Age Gestational Age in Weeks and Days: 36 Weeks and 4Days Test and Monitor Explained Test/Monitor Explained: Test Explained, Monitor Explained and Patient Verbalized Understanding Vital Signs Blood Pressure: 124/69 Pulse: 99 Temperature: 98.1 F NST Information Date on Monitor: 07/10/21 Time on Monitor: 15:44 Date off Monitor: 07/10/21 Time off Monitor: 16:11 Total Time on Monitor: 27 NST Interventions: PO Hydration NST Evaluation Patient States Movement: Present FHR Baseline: 135 Variability: Moderate 6-25 bpm Accelerations: 15x15 Decelerations: None NST Results: Reactive NST Evaluation Baby B Patient States Movement: Present FHR Baseline: 125 Variability: Moderate 6-25 bpm Accelerations: 15x15 Decelerations: None NST Results: Reactive Note NST Note Note: Category 1, reactive nonstress test for twin a and B. Uterine irritability with no discrete contractions. Continue current plan. Labor induction 511. NST Reviewed and Verified by: Maranda Shields
== END 2021-07-10 16:36 | disposition home or self-care (01) ==
LOC: BCD 08:53 → OBS 15:32
PROVIDERS: PCP Nurse Practitioner Family; Visit Provider Obstetrics & Gynecology
DX: O24.414 Gestational diabetes mellitus in pregnancy, insulin controlled (principal); O30.043 Twin pregnancy, dichorionic/diamniotic, third trimester; Z3A.36 36 weeks gestation of pregnancy
CPT/HCPCS: 59025

== ENCOUNTER 2021-07-14 07:14 | Outpatient (CLI) | payer BC, SELFPAY ==
[2021-07-14 08:56] VITALS: BP 123/62; PULSE 96; TEMP 36.7
[2021-07-14 09:08] VITALS: BP 123/62; PULSE 96
--- NOTE | 2021-07-14 17:11 | W.OBNST ---
Date of service: 07/14/21 Time of Service: 09:00 NST Evaluation Reason for NST Reasons for Nonstress Test: GDM-INSULIN, ADVANCED MATERNAL AGE and MULTIPLE GESTATION Gestational Age Gestational Age in Weeks and Days: 36 Weeks and 6Days Test and Monitor Explained Test/Monitor Explained: Test Explained, Monitor Explained and Patient Verbalized Understanding Vital Signs Blood Pressure: 123/62 Pulse: 96 Temperature: 98.1 F NST Information Date on Monitor: 07/14/21 Time on Monitor: 08:55 Date off Monitor: 07/14/21 NST Interventions: None NST Evaluation Patient States Movement: Present FHR Baseline: 140 Variability: Moderate 6-25 bpm Accelerations: 15x15 Decelerations: None NST Results: Reactive NST Evaluation Baby B Patient States Movement: Present FHR Baseline: 130 Variability: Moderate 6-25 bpm Accelerations: 15x15 Decelerations: None NST Results: Reactive Note NST Note Note: 37wk twins for NST - reactive NST Reviewed and Verified by: Marilin Joshi
[2021-07-14 17:12] VITALS: BP 123/62; PULSE 96; TEMP 36.7
== END 2021-07-14 09:50 | disposition home or self-care (01) ==
LOC: BCD 07:17 → OBS 08:42
PROVIDERS: PCP Nurse Practitioner Family; Visit Provider Obstetrics & Gynecology
DX: O24.414 Gestational diabetes mellitus in pregnancy, insulin controlled (principal); O09.523 Supervision of elderly multigravida, third trimester; O30.043 Twin pregnancy, dichorionic/diamniotic, third trimester; Z3A.36 36 weeks gestation of pregnancy
CPT/HCPCS: 59025

== ENCOUNTER 2021-07-17 09:20 | Outpatient (CLI) | payer BC, SELFPAY ==
[2021-07-17 13:36] VITALS: BP 116/68; PULSE 96; TEMP 36.8
--- NOTE | 2021-07-17 15:28 | W.OBNST ---
Date of service: 07/17/21 Time of Service: 02:30 NST Evaluation Reason for NST Reasons for Nonstress Test: GDM-INSULIN, ADVANCED MATERNAL AGE and MULTIPLE GESTATION Gestational Age Gestational Age in Weeks and Days: 37 Weeks and 4Days Test and Monitor Explained Test/Monitor Explained: Test Explained, Monitor Explained and Patient Verbalized Understanding Vital Signs Blood Pressure: 116/68 Pulse: 96 Temperature: 98.3 F Urine Results Urine Protein: Positive Urine Ketones: Negative Urine Glucose: Negative Urine Blood: Negative NST Information Date on Monitor: 07/17/21 Time on Monitor: 13:11 Date off Monitor: 07/17/21 Time off Monitor: 13:36 Total Time on Monitor: 25 NST Interventions: PO Hydration Contraction Frequency: 5 NST Evaluation Patient States Movement: Present FHR Baseline: 135 Variability: Moderate 6-25 bpm Accelerations: 15x15 Decelerations: None NST Results: Reactive NST Evaluation Baby B Patient States Movement: Present FHR Baseline: 125 Variability: Moderate 6-25 bpm Accelerations: 15x15 Decelerations: None NST Results: Reactive Note NST Note Note: NST for twins, GDM. Glucose levels are fine. Reactive x2. Has induction scheduled next week. Will return for NST tuesday. NST Reviewed and Verified by: Marilin Joshi
[2021-07-17 15:31] VITALS: BP 116/68; PULSE 96; TEMP 36.8
== END 2021-07-17 13:40 | disposition home or self-care (01) ==
LOC: BCD 09:21 → OBS 13:04
PROVIDERS: PCP Nurse Practitioner Family; Visit Provider Obstetrics & Gynecology
DX: O24.414 Gestational diabetes mellitus in pregnancy, insulin controlled (principal); O09.523 Supervision of elderly multigravida, third trimester; O30.043 Twin pregnancy, dichorionic/diamniotic, third trimester
CPT/HCPCS: 59025

== ENCOUNTER 2021-07-21 07:04 | Outpatient (CLI) | payer BC, SELFPAY ==
[2021-07-21 08:50] VITALS: BP 116/74; PULSE 92; TEMP 37.1
[2021-07-21 09:32] VITALS: BP 116/74; PULSE 92
== END 2021-07-21 09:45 | disposition home or self-care (01) ==
LOC: BCD 07:05 → OBS 08:48
PROVIDERS: PCP Nurse Practitioner Family; Visit Provider Obstetrics & Gynecology
DX: O24.414 Gestational diabetes mellitus in pregnancy, insulin controlled (principal)
CPT/HCPCS: 59025

== ENCOUNTER 2021-07-22 11:27 | Inpatient (IN) | payer BC, SELFPAY ==
--- NOTE | 2021-07-21 12:18 | HPE_ITS ---
Date of service: 07/21/21 Time of Service: 12:19 Assessment and Plan Assessment and plan (1) Twin gestation in third trimester: Status: Acute Assessment and plan: Term twin gestation via embryo transfer for surrogacy at 38 2/7. Desires vaginal delivery with documented adequate pelvis. Largest prior 9+ pounds, prior successful vaginal breech delivery. (2) Gestational diabetes: Status: Acute Assessment and plan: Good glycemic control, appropriate growth, appropriate surviellance (3) Breech presentation of fetus: Status: Acute Assessment and plan: In light of this patients obstetric history, she would be an excellent candidate for vaginal delivery, if caroline breech for fetus A on presentation. If footling breech, risk would outweigh the benefits of vaginal delivery, and section would be indicated. Will have IV, labs, including Covid and repeat evaluation with both physical exam and U/S. Final decision about delivery mode will be made at that point. If spontaneous labor, and still footing, would proceed with section. OB-HPI Labor/Delivery History of Present Illness Reason for Visit: PRE BAKRAI Chief Complaint: Other (Labor induction versus section). CESILIA Calculator Estimated Delivery Date Method Current WG Current Estimate 08/03/21 Ultrasound #1 38w 1d # 2 History of Present Expected Delivery Route/Plan NVD if possible Surrogate for parents Francois and Placido who live in [facility] and are both vaccinated MD patient Corina Bains. Specific Issues/Plan - Di/Di twin gestation -growth sonos -NSTs -deliver by 38wks - Pt is gestational carrier. -AMA, 41yrs @[facility]. Age of egg donor 31yo. -Glucose intolerance(1 elevated # on 3hr GTT) -Checking fingersticks with ~50% of fastings initially elevated, improved s/p higher protein nighttime snack. -GDM- Accu-checks, Diet, Begin NPH 4 Units at dinner 06/05/2021 -Possible ICP: itchy feet at night, normal LFTs, bile acids pending. Narrative: Patient is a 41 year old who is at 38 2/7 weeks with a twin gestation via embryo transfer as a surrogate. has been complicated by gestational diabetes, that is well controlled on insulin therapy. She presents today for evaluation of the possibility of labor induction vs primary section. Patient has had previous successful vaginal deliveries of 3 sims pregnancies, the largest being 9+#, and twin delivery with a breech extraction. She desires attempt at vaginal delivery. She is known to have a breech/tr ansverse presentation. By Ultrasound and cervical exam today, confirmed A in breech presentation, but feels to be footing at this point. We discussed at length the risk benefit and alternatives of vaginal delivery, vaginal breech delivery, versus primary section. She understands well the risk of bleeding, infection, injury to the surrounding organs, risk of thromboembolism, risk of subsequent of complications. She also understands the potential risk of complication related to vaginal delivery, and vaginal breech delivery. If on presentation, she is founf to have a footling presentation, c/s would be indicated. If caroline breech, she may have the oppurtunity for vaginal delivery after induction with a favorable cervix. Informed Consent Informed Consent: Section Delivery, Induction of Labor and Risk,Benefits,Alternatives Discussed Review of Systems Narrative: Feeling well, some fatigue. Babies moving and active Constitutional Constitutional: Reports as per HPI, Denies body ache(s), Denies chills, Denies daytime sleepiness, Denies excessive sweating, Reports fatigue, Denies headache(s) and Denies malaise Eyes Eyes: Reports as per HPI and Reports system reviewed and no additional complaints, except as documented ENT Ears, Nose, Mouth, and Throat: Reports system reviewed and no additional complaints, except as documented and Denies headache(s) Cardiovascular Cardiovascular: Reports as per HPI, Reports system reviewed and no additional complaints, except as documented, Denies chest pain, Denies irregular heart rhythm and Denies dyspnea Respiratory Respiratory: Reports as per HPI, Reports system reviewed and no additional complaints, except as documented, Denies chest congestion, Denies cough and Denies dyspnea Gastrointestinal Gastrointestinal: Reports system reviewed and no additional complaints, except as documented, Denies abdominal pain, Denies cramping, Denies diarrhea and Denies nausea Genitourinary Genitourinary: Reports system reviewed and no additional complaints, except as documented Musculoskeletal Musculoskeletal: Reports system reviewed and no additional complaints, except as documented, Denies back pain, Denies myalgias and Denies arthralgias Integumentary/Breasts Skin/Breast: Reports system reviewed and no additional complaints, except as documented Neurologic Neurologic: Reports system reviewed and no additional complaints, except as documented and Denies headache(s) Psychiatric Psychiatric: Reports system reviewed and no additional complaints, except as documented, Denies abnormal sleep pattern, Denies anxiety, Denies depression and Denies irritability Endocrine Endocrine: Reports system reviewed and no additional complaints, except as documented, Denies excessive sweating and Reports fatigue PFSH All Active Problems (Updated 07/21/21 @ 12:44 by Maranda Shields DO) Breech presentation of fetus (Acute) Gestational diabetes (Acute) Pruritus of (Acute) Twin gestation in third trimester (Acute) GERD (gastroesophageal reflux disease) (Chronic) (Acute) Medical History (Updated 07/21/21 @ 12:44 by Maranda Shields DO) Depression (09/26/12) Endometriosis Miscarriage 06/13/2020 embryonic demise of surrogate gestation at 7 weeks EGA. Rx with misoprostol. Vomiting affecting Surgical History (Updated 04/29/21 @ 13:58 by Marilin Joshi MD) Biopsy of breast (~2002) L breast. B9. Diagnostic Laproscopy (~2000) laparoscopy for endometriosis History of D&C 06/20/2020 Tooth extraction wisdom teeth. 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, is no longer a concern Maternal Aunt Diabetes type II Maternal Grandmother Diabetes type II Heart disease Social History Smoking/Tobacco Use Status: Former Tobacco Use Tobacco: How many years used: 15 Smoking risk assessment performed?: Yes Alcohol Intake: never Drug use: Never Substance use type: does not use Adopted: No Caregiver/Support person: No Foster care: No Household members: spouse and family Housing: other Details: Dorm parent at [facility] Number of Children: 3 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 Date GA/Weeks # Outcome Route Wgt Sex Labor Lgth Anesthes ia Location Prov Complic 06/22/09 39 No Successful vaginal 8 lb 2 oz Female 36 hrs [facility] 10/13/11 Unsuccessful 11/08/12 40 No Successful vaginal 9 lb 5 oz Male 28 hrs [facility] 05/06/16 40 No Successful vaginal 7 lb 2 hrs [facility] 03/10/18 Yes Successful vaginal 6 lb 2 oz Female 13hrs 49 min donna onal treva francis Delivery Date: 10/13/11 Last Updated by: Sumaya Lilly RN SAB Delivery Date: 05/06/16 Last Updated by: Sumaya Lilly RN surrogate Delivery Date: 03/10/18 Last Updated by: Marilin Joshi M.D. 2nd twin double footling breech male Surrogate Meds Allergies and Home Medications Allergies Allergy/AdvReac Type Severity Reaction Status Date / Time doxycycline Allergy Intermediate Skin Rash Verified 06/18/21 07:55 penicillin G Allergy Mild RASH,DIZZIN Verified 06/18/21 07:55 ESS DUST Allergy Mild HIVES,WATERY Uncoded 06/18/21 07:55 EYES, SNEEZING seasonal allergies Allergy Unknown Uncoded 06/18/21 07:55 Home Medications Medication Instructions Recorded Confirmed Type vit no.95-ferrous 1 ea PO DAILY 09/01/17 07/21/21 History fumarate 28 mg-folic acid 800 mcg tablet () acetaminophen 500 mg tablet 1,000 mg PO Q6H PRN tab 12/19/17 07/21/21 History (Tylenol Extra Strength) vitamin d PO 01/19/21 07/21/21 History fluticasone propionate 50 1 spray INTRANASAL DAILY PRN 03/03/21 07/21/21 History mcg/actuation nasal spray,suspension magnesium oxide 250 mg PO BID 03/03/21 07/21/21 History alcohol swabs (Alcohol Prep Pads) 1 pad TOPICAL QID #200 ea 05/19/21 07/21/21 Rx blood-glucose meter (OneTouch #1 ea 05/19/21 07/21/21 Rx Ultra2 Meter) lancets (OneTouch UltraSoft #200 ea 05/19/21 07/21/21 Rx Lancets) ursodiol 300 mg capsule 300 mg PO BID #60 cap 06/02/21 07/21/21 Rx blood sugar diagnostic #100 ea 06/05/21 07/21/21 Rx blood-glucose sensor (Dexcom G6 #3 ea 06/05/21 07/21/21 Rx Sensor) pen needle, diabetic 32 gauge x #100 ea 06/05/21 07/21/21 Rx 1/6 blood sugar diagnostic #100 ea 06/09/21 07/21/21 Rx blood sugar diagnostic (OneTouch 1 strip MISCELLANEOUS QID 90 Days 06/09/21 07/21/21 Rx Ultra Test) #100 ea esomeprazole magnesium 40 mg 40 mg PO DAILY #60 cap 06/18/21 07/21/21 Rx capsule,delayed release (Nexium) insulin NPH isoph U-100 human 100 10 unit (0.1 mL) SUBCUT QHS #15 ml 06/26/21 07/21/21 Rx unit/mL (3 mL) subcutaneous pen (Humulin N NPH U-100 Insulin KwikPen) hydroxyzine pamoate 25 mg capsule 25 mg PO QHS #30 cap 07/13/21 07/21/21 Rx (Vistaril) Exam Physical Exam Vital Signs Reviewed: Yes Constitutional Constitutional: no acute distress Detailed Labor and Delivery Exam Dilation: 1 Effacement (%): 80 station: -2 Position: Other (breech) Cervix position: anterior Consistency: soft Hager Score: Cervical Points Exam 0 1 2 3 Dilation Closed 1-2cm 3-4 cm 5-6cm Effacement 0-30% 40-50% 60-70% 80% Consistency Firm Medium Soft Station -3 -2 -1,0 +1,+2 Position Posterior Mid Anterior HAGER Score(Cervical Ripeness Score): 8 Amniotic Membrane Status: Intact Fetus A Heart Rate Baseline: 135 Monitor Accelerations: 15 X 15 Monitor Decelerations: None Variability: Moderate (6-25 BPM) Presentation: Footling Breech Categories: Category I Est. Weight: 6 lb 8 oz Fetus B Heart Rate Baseline: 135 Monitor Accelerations: 15 X 15 Monitor Decelerations: None Variability: Moderate (6-25 BPM) Presentation: Vertex FA Categories: Category I HEENT Exam HEENT Exam: Normal Neck Exam Neck Exam: Normal Respiratory Exam Respiratory Exam: Normal Detailed Respiratory Exam Respiratory: Absent respiratory distress or wheezes Cardiovascular Exam Cardiovascular Exam: Normal Exam Exam: Normal Extremities Exam Extremities Exam: Normal Skin Exam Skin Exam: Normal Neurological Exam Neurological Exam: Normal Psychiatric Exam Psychiatric Exam: Normal Risk Assessment Risk for Shoulder Dystocia Historical/Initial OB: NEGATIVE FOR: Pelvic Abnormality, Pre- BMI>30, Previous Shoulder Dystocia or Previous Macrosomia Counseling: n/a Date/Initial: 02/17/21 Delivery Plan @ 36wks: Vaginal delivery if appropriate Risk for Pre-Eclampsia Yes, if one or more: NEGATIVE FOR: Hx Pre-E/Gest HTN, Chronic HTN, Multiple Gestation, Pre-gestational DM, Renal Disease, Systemic Lupus or APA Syndrome Yes, if 2 or more: POSITIVE FOR: Age>= 35 yrs; NEGATIVE FOR: Nulliparity, >10yr btwn pregnancies, BMI>30, ethinicty, Mother/Sister w/ Pre-E or Previous IUGR Risk for Post- Hemorrhage Initial: POSITIVE FOR: Multiple Gestation; NEGATIVE FOR: Previous PPH, Known Clotting Deficiency, Grand Multiparity or Anticoagulation At Risk?: Yes Interventions: IV, type and screen, oxytotics Counseled re: Active Management: Yes Date/Initials: CECY 07/21/21 Risks Reviewed Risks Reviewed Upon Admission: Yes
[2021-07-22] VITALS (14 sets, daily range): BP systolic 111–137; BP diastolic 68–83; PULSE 68–89; RESP 16–18; TEMP 36.6–36.7; O2SAT 99–100; BMI 25.3
[2021-07-22 07:44] LABS: HCT 37.2 % (36.0-46.0); HGB 12.1 g/dL (11.2-15.7); MCHC 32.5 % (32.0-36.0); MCV 83 fL (80-95); MPV 11.7 fL (8.0-11.0); Platelet Count 164 10^3/uL (130-400); RBC 4.48 10^6/uL (3.93-5.22); RDW 12.4 % (11.7-14.6); RDW-SD 37.3 fL; WBC 9.26 10^3/uL (4.4-10.8)
[2021-07-22 07:45] LABS: Source Nasal/Nares
[2021-07-22] MEDS: Lactated Ringers 1,000 ML 125 ML IV (08:30)
[2021-07-22 08:45] LABS: COVID-19 PCR Negative (Negative)
--- NOTE | 2021-07-22 08:59 | ANES.PREOP_ITS ---
General Info Date of Service Date Performed: 07/22/21 Height: 5 ft 7 in Weight: 73.482 kg Body Mass Index (BMI): 25.3 Surgical Procedure: Operation Date: 07/22/21 10:25 Proposed Procedure Side Surgeon p Section Ramya Sutton MD Meds Allergies and Home Medications Allergies Allergy/AdvReac Type Severity Reaction Status Date / Time doxycycline Allergy Intermediate Skin Rash Verified 07/22/21 09:01 penicillin G Allergy Mild RASH,DIZZIN Verified 07/22/21 09:01 ESS DUST Allergy Mild HIVES,WATERY Uncoded 07/22/21 09:01 EYES, SNEEZING seasonal allergies Allergy Unknown Uncoded 07/22/21 09:01 Home Medication Medication Instructions Recorded vit no.95-ferrous 1 ea PO DAILY 09/01/17 fumarate 28 mg-folic acid 800 mcg tablet () acetaminophen 500 mg tablet 1,000 mg PO Q6H PRN tab 12/19/17 (Tylenol Extra Strength) vitamin d PO 01/19/21 fluticasone propionate 50 1 spray INTRANASAL DAILY PRN 03/03/21 mcg/actuation nasal spray,suspension magnesium oxide 250 mg PO BID 03/03/21 alcohol swabs (Alcohol Prep Pads) 1 pad TOPICAL QID #200 ea 05/19/21 blood-glucose meter (OneTouch #1 ea 05/19/21 Ultra2 Meter) lancets (OneTouch UltraSoft #200 ea 05/19/21 Lancets) ursodiol 300 mg capsule 300 mg PO BID #60 cap 06/02/21 blood sugar diagnostic #100 ea 06/05/21 blood-glucose sensor (Dexcom G6 #3 ea 06/05/21 Sensor) pen needle, diabetic 32 gauge x #100 ea 06/05/21/ blood sugar diagnostic #100 ea 06/09/21 blood sugar diagnostic (OneTouch 1 strip MISCELLANEOUS QID 90 Days 06/09/21 Ultra Test) #100 ea esomeprazole magnesium 40 mg 40 mg PO DAILY #60 cap 06/18/21 capsule,delayed release (Nexium) insulin NPH isoph U-100 human 100 10 unit (0.1 mL) SUBCUT QHS #15 ml 06/26/21 unit/mL (3 mL) subcutaneous pen (Humulin N NPH U-100 Insulin KwikPen) hydroxyzine pamoate 25 mg capsule 25 mg PO QHS #30 cap 07/13/21 (Vistaril) Current Visit Medications: Current Medications Generic Name Dose Route Start Last Admin Trade Name Freq PRN Reason Stop Dose Admin Citric Acid/Sodium Citrate 30 ml 07/22/21 07:00 Sodium Citrate 30 Ml Cup PO PREOP LALI Sodium Chloride 500 mls @ 0 mls/hr 07/22/21 07:00 Saline 500ml Bag IV PRN PRN As Directed Ringer's Solution 1,000 mls @ 200 mls/hr 07/22/21 07:00 IV INFUSION LALI Cefazolin Sodium/Dextrose 2 gm in 50 mls @ 100 mls/hr 07/22/21 07:00 Ancef Duplex IVPB PREOP LALI Azithromycin 500 mg/ Sodium 250 mls @ 250 mls/hr 07/22/21 07:00 Chloride IVPB PREOP LALI IV Miscellaneous Supplies 1 each 07/22/21 07:00 Iv Access IV DIRECTED LALI Sodium Chloride 0 ml 07/22/21 07:00 Normal Saline Flush 10 Ml Syr IVP PRN PRN PFSH Active Problems Active Problems: Problem Status Onset Code Breech presentation of fetus O32.1XX0 Gestational diabetes O24.419 Pruritus of O99.719, L29.9 Twin gestation in third trimester O30.003 GERD (gastroesophageal reflux disease) K21.9 Z34.90 Medical History Medical History (Updated 07/21/21 @ 12:44 by Maranda Shields DO) Depression (09/26/12) Endometriosis Miscarriage 06/13/2020 embryonic demise of surrogate gestation at 7 weeks EGA. Rx with misoprostol. Vomiting affecting Surgical History Surgical History (Updated 04/29/21 @ 13:58 by Marilin Joshi MD) Biopsy of breast (~2002) L breast. B9. Diagnostic Laproscopy (~2000) laparoscopy for endometriosis History of D&C 06/20/2020 Tooth extraction wisdom teeth. Tobacco Smoking/Tobacco Use Status: Former Tobacco Use Passive smoking exposure: No Alcohol Alcohol Intake: never Substance Use Substance use: Never Substance use type: does not use Prental History History 6 Para 5 Hx # Term Pregnancies 4 Multiple births 0 Hx # Pregnancies 0 Ectopic pregnancies 0 AB induced 0 Hx Number of Living Children 5 AB spontaneous 1 Past Pregnancies Del. Date GA/Weeks # Outcome Route Wgt Sex Labor Lgth Anesthes ia Location Prov Complic 06/22/09 39 No Successful vaginal 3685.438 g Female 36 hrs [facility] 10/13/11 Unsuccessful 11/08/12 40 No Successful vaginal 4224.079 g Male 28 hrs [facility] 05/06/16 40 No Successful vaginal 3175.147 g 2 hrs [facility] 03/10/18 Yes Successful vaginal 2778.253 g Female 13hrs 49 min [facility] Delivery Date: 10/13/11 Last Updated by: Sumaya Lilly RN SAB Delivery Date: 05/06/16 Last Updated by: Sumaya Lilly RN surrogate Delivery Date: 03/10/18 Last Updated by: Marilin Joshi M.D. 2nd twin double footling breech male Surrogate Vital Signs and Lab Results Vital Signs Most Recent Vital Signs in EMR: Most Recent Vital Signs Temp Pulse Resp BP Pulse Ox 36.6 C 78 16 131/71 99 07/22/21 07:30 07/22/21 07:30 07/22/21 07:30 07/22/21 07:30 07/22/21 07:30 Lab Results Result Diagrams: 07/22/21 07:40 Blood Type / Crossmatch: Patient ABO/Rh O Positive 07/22/21 Antibody Screen NEGATIVE 07/22/21 Complete Blood Count: White Blood Count 9.26 10^3/uL (4.4-10.8) 07/22/21 07:40 07/22/21 Red Blood Count 4.48 10^6/uL (3.93-5.22) 07/22/21 07:40 07/22/21 Hemoglobin 12.1 g/dL (11.2-15.7) 07/22/21 07:40 07/22/21 Hematocrit 37.2 % (36.0-46.0) 07/22/21 07:40 07/22/21 Platelet Count 164 10^3/uL (130-400) 07/22/21 07:40 07/22/21 Complete Metabolic Panel: No Data to Display Liver Function Panel: No Data to Display Coagulation Panel: No Data to Display Cardiac Panel: No Data to Display Arterial Blood Gas: No Data to Display Venous Blood Gas: No Data to Display Pancreas Panel: No Data to Display Thyroid Panel: No Data to Display Infectious Disease: Coronavirus (COVID-19)(PCR) Negative (Negative) 07/22/21 07:35 07/22/21 Coronavirus 2019 Source Nasal/Nares 07/22/21 07:35 07/22/21 Neisseria gonorrhoeae DNA Probe Negative (Negative) 06/30/21 09:24 06/30/21 Blood Cultures: No Data to Display Toxicology Panel: Urine Amphetamines Screen Negative (Negative) 07/07/21 09:15 07/07/21 Urine Benzodiazepines Screen Negative (Negative) 07/07/21 09:15 07/07/21 Urine Barbiturates Screen Negative (Negative) 07/07/21 09:15 07/07/21 Urine Cocaine Screen Negative (Negative) 07/07/21 09:15 07/07/21 Urine Methadone Screen Negative (Negative) 07/07/21 09:15 07/07/21 Urine Opiates Screen Negative (Negative) 07/07/21 09:15 07/07/21 Ur Tricyclic Antidepressants Screen Negative (Negative) 07/07/21 09:15 07/07/21 Ur Tetrahydrocannabinol (THC) Scrn Negative (Negative) 07/07/21 09:15 07/07/21 Panel: No Data to Display Anesthesia Assessment and Plan Anesthesia History Personal History: No History of Anesthesia Complications Family History: No Family History of Anesthesia Complications Exercise Tolerance Exercise Tolerance: Metabolic Equivalents>4 Pertinent Negatives Pertinent Negatives: No Major Cardiovascular Symptoms or Complaints, No Major Pulmonary Symptoms or Complaints and No History of CVA/TIA Cardiac & Pulmonary Exam Cardiac Exam: Normal S1/S2 Heart Sounds Pulmonary Exam: Clear Bilateral Breath Sounds Implantable Cardiac Device Does patient have a Pacemaker or an ICD?: No Airway Exam Known Difficult Airway: No Mallampati Class: 1 Mouth Opening: Normal (> 3cm) Thyromental Distance: Greater than 3 cm Neck Range of Motion: Full ROM Neck Circumference: Normal Teeth Condition: Normal Dentition ASA Classification ASA Score: ASA 2 Emergency Case?: No NPO Status NPO Status: NPO Clears >2 hours, Solids >8 hours and Full Stomach Status Status: Confirmed Anesthesia Plan Resuscitation Status: Full Code Anesthesia Technique: Spinal Anesthesia Airway Planned: Natural Airway Pain Management: Intrathecal Analgesia Monitors Used: Standard Monitors
[2021-07-22] MEDS: AZITHROMYCIN 500 MG in Normal Saline 250 ML 250 MG IVPB (09:05)
[2021-07-22] MEDS: Sodium Citrate 30 ML CUP PO (09:16)
[2021-07-22] MEDS: ceFAZolin 2 GM/50 ML BAG IVPB (10:40)
--- NOTE | 2021-07-22 10:55 | PLAC_PTH ---
PATIENT: Flower Cali LOC: OBS U#:[id number] AGE/SX: 41/F ROOM: OBS.305 RE07/22/[address]: Ramya Sutton : 1980 BED: A DIS: 07/24/2021 SPEC #: [id number] RECD: 07/22/21 12:56 STATUS: CHARLENE REQ #: [id number] REGINE: 07/22/21 10:[address]: Ramya Sutton DEPT: Surgical Specimen RECD BY: Christa Mathew ENTERED: 07/22/21 12:59 SP TYPE: PLAC OTHR DR: Sarah Dove Tissues: 1 - PLACENTA (3RD TRIMESTER) 2 - PLACENTA (3RD TRIMESTER) 3 - FALLOPIAN TUBE (STERILIZATION) 4 - FALLOPIAN TUBE (STERILIZATION) Procedures: GROSS AND MICRO LEVEL 2 GROSS AND MICRO LEVEL 5 Comments: [id number]
--- NOTE | 2021-07-22 11:31 | ROE_ITS ---
Date of service: 07/22/21 Time of Service: 11:31 Operative Note Operative Note DATE OF PROCEDURE: 07/22/21 PRE-OP DIAGNOSIS: di-di twin gestation at term. primary delivery. multiparity desires sterilization PROCEDURE: scheduled LTCS. Bilateral salpingectomy SURGEON: Ramya Sutton ASSISTING SURGEON: Maranda Shields Refer to Anesthesia Record ESTIMATED BLOOD LOSS: 400 PATHOLOGY: other (Bilateral fallopian tubes to pathology) COMPLICATIONS: None Patient was transported to: floor Patient's condition: stable Implants: None Indications: female who is gestational carrier for Di-Di twin currently at 38w2d EGA who presents for scheduled LTCS for malpresentation. Pt has been followed at [facility] since early in 1st trimester. complicated by insulin requiring gestational diabetes. Normal morphology and concordant growth on OB u/s. Twin A, the presenting twin, has been in variable presentation with most recent position double footling breech and this am transverse, spine up when examined on bedside u/s. Pt had been counseled that she was not a candidate for vaginal delivery and consented to LTCS with plan for bilateral tubal sterilization at time of delivery. Findings: Viable female infants in separate amniotic sacs but separate placentas. Twin A transverse spine up. Weight 6 pounds 5 ounces. Parents plan to name her Jessica. Twin B vertex 7 pounds 2 ounces. Her parents will name her Donna. Normal fallopian tubes uterus and ovaries. Procedure Description: Patient was taken to the operating room she is placed in the sitting position and spinal anesthesia was administered without difficulty. She was then placed in the dorsal supine position with a leftward tilt. SCDs and a Denise catheter to gravity drainage were in place. A vaginal prep with Betadine was performed and the patient was prepped and draped in the usual sterile fashion.A surgical time out was performed. After a adequate level of anesthesia was achieved a Pfannenstiel skin incision was made approximately 2 cm superior to the pubic symphysis using a scalpel and the underlying subcutaneous tissue dissected using Bovie electrocautery to the level of the rectus fascia. The rectus fascia was then nicked in the midline and the fascial incision extended laterally using curved Collins scissors. 2 Nasra clamps were applied to the inferior rectus fascia and the rectus fascia was dissected off of the underlying rectus muscles using Bovie electrocautery and blunt technique. A similar technique was carried out on the superior rectus fascia. Rectus muscles were then in the midline and the peritoneum entered bluntly. The peritoneal incision was extended laterally using blunt technique. Scalpel was used to incise the lower uterine segment in a transverse fashion. The uterine incision was extended bluntly and the amniotic sac of Twin A was visualized and ruptured. The fetus was noted to be in a transverse position with both feet visible. Both ankles were grasped and the lower extremities delivered followed by the trunk and upper extremities and the head was delivered atraumatically. The cord was doubly clamped and cut and the handed off to the waiting pediatric team. Twin B was in the cephalic presentation. The amniotic sac was bluntly ruptured and a single gloved hand was placed into the uterine incision and the head delivered with the assistance of fundal pressure followed by the atraumatic delivery of the trunk and extremities. The cord was doubly clamped and cut and the handed off to the waiting pediatric team. Samples of cord blood were obtained from each of the marked umbilical cords. The placentas were extracted with a combination of fundal massage and gentle cord traction. The uterus was exteriorized cleared of all clots and debris and the uterine incision reapproximated with a running locked suture of 0 Vicryl followed by a second imbricating suture of 0 Vicryl. The incision required two figure of eight sutures of 0-Vicryl to achieve hemostasis. The bilateral salpingectomy was performed initially on the R fallopian tube using a small Ligasure electrocautery device. The fallopian tube was clamped, cauterized and trasected along it's length to the level of the uterine cornua. A similar procedure was performed on the contralateral fallopian tube. Both specimens were sent in individually labeled containers The uterus was returned to the abdomen and the uterus carefully inspected and the uterine incision was once again inspected and noted be hemostatic as were the fallopian tube pedicles. The paracolic gutters cleared of all clots and debris. Uterine incision along with the bladder flap and the anterior abdominal wall were inspected and again noted to be hemostatic. The rectus fascia was reapproximated with a running suture of 0 Vicryl. space within the subcutaneous tissue closed with a running suture of 3-0 Vicryl. The skin incision was reapproximated with a subcuticular closure of 4-0 Monocryl. Steri strips and a dry sterile dressing were applied to the incision. The uterus was massaged for any remaining clots and debris's. The patient was transported to recovery area in stable condition. All sponge, lap, and needle counts correct x2.
--- NOTE | 2021-07-22 11:52 | W.ANESPROC ---
Intrathecal Analgesia Date Performed: 07/22/21 Procedure Time: 10:29
[2021-07-22] MEDS: Ketorolac 30 MG/ML VIAL IVP ×3 (12:45→23:39)
--- NOTE | 2021-07-22 12:46 | W.ANESPOSTOP ---
Postoperative Evaluation Date, Time and Location Date Performed: 07/22/21 Time Performed: 12:46 Patient Location: Obstetrics Vital Signs Most Recent Imported Vital Signs: Most Recent Vital Signs Temp Pulse Resp BP Pulse Ox 36.6 C 78 16 131/71 99 07/22/21 07:30 07/22/21 07:30 07/22/21 07:30 07/22/21 07:30 07/22/21 07:30 Pain Score Most Recent Pain Score: Most Recent Pain Score Pain Level 0 07/22/21 07:30 Assessment Mental Status: Awake (Alert & Oriented to Patient Baseline) Airway and Respiratory Function: Patent airway with normal (patient baseline) respiratory exam Cardiovascular Function: Hemodynamically Stable Hydration Status: Adequately Hydrated Nausea & Vomiting: No Nausea or Vomiting Pain: Pt. Denies Any Pain Peripheral Nerve Block: Other (Spinal at T11, patient is moving lower extremities but sensation has not completely returned)
[2021-07-22] MEDS: Naloxone 0.4 MG/ML VIAL IVP (16:00)
--- NOTE | 2021-07-22 16:29 | W.PM.OBPNV1 ---
Date of service: 07/22/21 Time of Service: 16:29 Assessment and Plan Assessment and plan (1) Status post primary low transverse section: Status: Acute Assessment and plan: Patient is postoperative day #0 status post primary low transverse section for twin gestation, gestational diabetes, malpresentation of twin A in an unstable lie transitioning from transverse to footling breech. She is doing well. We will assume normal postoperative care. She has been a surrogate and a gestational carrier. Babies are also doing well in the care of their fathers (2) Breech presentation of fetus: Status: Acute (3) Gestational diabetes: Status: Acute Subjective Subjective Interval history: Patient seen postoperative day 0. Doing well. Some itching around the oral area. She has had a dose of Benadryl and Narcan. She has minimal pain. She has been tolerating regular diet and doing well. Exam Physical Exam Vital signs: Temp Pulse Resp BP Pulse Ox 97.9 F 68 16 121/78 100 07/22/21 11:45 07/22/21 13:45 07/22/21 12:45 07/22/21 13:45 07/22/21 13:45 Results Hemoglobin/Hematocrit: Hgb 12.1 g/dL (11.2-15.7) 07/22/21 07:40 Hct 37.2 % (36.0-46.0) 07/22/21 07:40 Abnormal Lab Findings: Abnormal Labs 07/22/21 07:40 MPV 11.7 H
[2021-07-22] MEDS: Acetaminophen 325 MG TAB 650 MG PO ×2 (17:41→22:15)
[2021-07-22] MEDS: Normal Saline Flush 10 ML SYR IVP ×2 (18:09→23:40)
[2021-07-23 03:43] VITALS: BP 119/75; PULSE 73; RESP 18; TEMP 36.9
[2021-07-23] MEDS: Ketorolac 30 MG/ML VIAL IVP (06:00)
[2021-07-23 07:21] LABS: Abs Immature Grans 0.11 10^3/uL (0.0-0.06); Absolute Basophil Count 0.03 10^3/uL (0.0-0.2); Absolute Eosinophil Count 0.11 10^3/uL (0.0-0.7); Absolute Monocyte Count 0.63 10^3/uL (0.1-0.8); Absolute Neutrophil Count 8.19 10^3/uL (1.2-6.7); Basophils % 0.3; Eosinophils % 1.1; HCT 33.6 % (36.0-46.0); HGB 10.9 g/dL (11.2-15.7); Immature Grans % 1.1; Lymphocytes % 10.8; MCH 26.9 pg (27.0-33.0); MCHC 32.4 % (32.0-36.0); MCV 83 fL (80-95); MPV 11.9 fL (8.0-11.0); Monocytes % 6.2; Neutrophils % 80.5; Platelet Count 140 10^3/uL (130-400); RBC 4.05 10^6/uL (3.93-5.22); RDW 12.2 % (11.7-14.6); RDW-SD 36.9 fL; WBC 10.17 10^3/uL (4.4-10.8)
[2021-07-23] MEDS: Esomeprazole 40 MG CAPCR PO (08:03)
[2021-07-23] MEDS: Prenatal Multivitamin w/CA,FE TAB 1 TAB PO (08:03)
[2021-07-23 08:45] VITALS: BP 121/77; PULSE 67; RESP 20; TEMP 36.7; O2SAT 99
--- NOTE | 2021-07-23 09:23 | W.PM.OBNL1 ---
Informed Consent Informed Consent: Section Delivery, Induction of Labor and Risk,Benefits,Alternatives Discussed Objective Abnormal lab results 07/23/21 Range/Units 06:45 Hgb 10.9 L (11.2-15.7) g/dL Hct 33.6 L (36.0-46.0) % MCH 26.9 L (27.0-33.0) pg MPV 11.9 H (8.0-11.0) fL Absolute Neutrophils 8.19 H (1.2-6.7) 10^3/uL Absolute Lymphocytes 1.10 L (1.2-3.4) 10^3/uL Temp Pulse Resp BP Pulse Ox 98.5 F 73 18 119/75 100 07/23/21 03:43 07/23/21 03:43 07/23/21 03:43 07/23/21 03:43 07/22/21 15:50 Laboratory Results WBC 10.17 10^3/uL (4.4-10.8) 07/23/21 06:45 RBC 4.05 10^6/uL (3.93-5.22) 07/23/21 06:45 Hgb 10.9 g/dL (11.2-15.7) L 07/23/21 06:45 Hct 33.6 % (36.0-46.0) L 07/23/21 06:45 MCV 83 fL (80-95) 07/23/21 06:45 MCH 26.9 pg (27.0-33.0) L 07/23/21 06:45 MCHC 32.4 % (32.0-36.0) 07/23/21 06:45 RDW 12.2 % (11.7-14.6) 07/23/21 06:45 Plt Count 140 10^3/uL (130-400) 07/23/21 06:45 MPV 11.9 fL (8.0-11.0) H 07/23/21 06:45 Immature Gran % 1.1 07/23/21 06:45 Neutrophils % 80.5 07/23/21 06:45 Lymphocytes % 10.8 07/23/21 06:45 Monocytes % 6.2 07/23/21 06:45 Eosinophils % 1.1 07/23/21 06:45 Basophils % 0.3 07/23/21 06:45 Nucleated RBC % 0.0 % (0.0-0.3) 07/23/21 06:45 Absolute Neutrophils 8.19 10^3/uL (1.2-6.7) H 07/23/21 06:45 Absolute Lymphocytes 1.10 10^3/uL (1.2-3.4) L 07/23/21 06:45 Absolute Monocytes 0.63 10^3/uL (0.1-0.8) 07/23/21 06:45 Absolute Eosinophils 0.11 10^3/uL (0.0-0.7) 07/23/21 06:45 Absolute Basophils 0.03 10^3/uL (0.0-0.2) 07/23/21 06:45 COVID-19 Source Nasal/Nares 07/22/21 07:35 SARS-CoV-2 (PCR) Negative (Negative) 07/22/21 07:35 Patient ABO/Rh O Positive 07/22/21 07:40 Antibody Screen NEGATIVE 07/22/21 07:40 Results Hemoglobin/Hematocrit: Hgb 10.9 g/dL (11.2-15.7) L 07/23/21 06:45 Hct 33.6 % (36.0-46.0) L 07/23/21 06:45 Abnormal Lab Findings: Abnormal Labs 07/22/21 07/23/21 07:40 06:45 Hgb 10.9 L Hct 33.6 L MCH 26.9 L MPV 11.7 H 11.9 H Absolute Neutrophils 8.19 H Absolute Lymphocytes 1.10 L
--- NOTE | 2021-07-23 09:24 | OBPPV_ITS ---
Date of service: 07/23/21 Time of Service: 08:24 Assessment and Plan Assessment and plan (1) Status post primary low transverse section: Status: Acute Assessment and plan: Satisfactory recovery. Patient will remain hospitalized overnight and be discharged in the morning. We will continue to assist with ambulation and continue to monitor spontaneous voiding. Subjective Subjective Interval history: Postop day 1 after a primary low transverse delivery of gestational carrier for Di Di twin gestation at 38 W3D EGA with malpresentation. Patient had a bilateral salpingectomy for the purpose of sterilization at the time of delivery. Patient comments: No complaints, Pain well controlled, Tolerating diet and Flatus present Patient's Mood: Satisfactory [place] baby status: Adopting out (Per patient's legal arrangements as gestational carrier the infants are being cared for by their biologic parents.) feeding status: Exclusively formula feeding Narrative: Denise catheter was discontinued during the night. Patient was initially unable to completely empty bladder did not require catheterization. She did void successfully this morning was able to empty her bladder completely. Exam Physical Exam Vital signs: Temp Pulse Resp BP Pulse Ox 98.5 F 73 18 119/75 100 07/23/21 03:43 07/23/21 03:43 07/23/21 03:43 07/23/21 03:43 07/22/21 15:50 Vital Signs Reviewed: Yes Constitutional Constitutional: no acute distress HEENT Exam HEENT Exam: Normal Neck Exam Neck Exam: Normal Respiratory Exam Respiratory Exam: Normal Cardiovascular Exam Cardiovascular Exam: Normal Abdominal Exam Abdomen: Diastasis Comments: Incision covered with a dry sterile dressing. Steri-Strips in place. Fundal Exam Fundus: Below Umbilicus (2 fingerbreadths) Rectal Exam Rectal Exam: Not Done Extremities Exam Extremity Exam: Normal Back/Spine/Pelvis Exam Back Exam: Normal Skin Exam Skin Exam: Normal Neurological Exam Neurological Exam: Not Done Psychiatric Exam Psychiatric Exam: Normal Results Hemoglobin/Hematocrit: Hgb 10.9 g/dL (11.2-15.7) L 07/23/21 06:45 Hct 33.6 % (36.0-46.0) L 07/23/21 06:45 Abnormal Lab Findings: Abnormal Labs 07/22/21 07/23/21 07:40 06:45 Hgb 10.9 L Hct 33.6 L MCH 26.9 L MPV 11.7 H 11.9 H Absolute Neutrophils 8.19 H Absolute Lymphocytes 1.10 L
[2021-07-23] MEDS: oxyCODONE 5 mg/Acetaminophen 325 mg TAB PO ×2 (09:56→15:05)
[2021-07-23] MEDS: Docusate Sodium 100 MG CAP PO ×2 (09:56→20:16)
[2021-07-23 11:25] VITALS: BP 124/66; PULSE 69; RESP 20; TEMP 36.6; O2SAT 98
[2021-07-23 15:10] VITALS: BP 121/70; PULSE 68; RESP 20; TEMP 36.5; O2SAT 100
[2021-07-23 19:30] VITALS: BP 130/69; PULSE 69; RESP 18; TEMP 37.7
[2021-07-23] MEDS: Ibuprofen 600 MG TAB PO (20:22)
[2021-07-24 00:01] VITALS: BP 98/57; PULSE 69; RESP 18; TEMP 36.6
[2021-07-24] MEDS: Ibuprofen 600 MG TAB PO ×2 (02:06→09:09)
[2021-07-24] MEDS: Docusate Sodium 100 MG CAP PO (07:27)
[2021-07-24] MEDS: Esomeprazole 40 MG CAPCR PO (07:27)
[2021-07-24 07:30] VITALS: PULSE 77; RESP 16; TEMP 36.7; O2SAT 100
--- NOTE | 2021-07-24 08:44 | DSE_ITS ---
Date of service: 07/24/21 Time of Service: 07:47 DS: Diagnosis Discharge Diagnosis (1) Status post primary low transverse section: Status: Acute (2) Gestational diabetes: Status: Acute (3) Dichorionic diamniotic twin gestation: Status: Acute Discharge Plan Disposition Patient Disposition: HOME Condition: Stable Discharge Details Reason For Visit: Di-Di Twin Gestation,Primary Delivery Admit Date/Time: 07/22/21 11:27 Admit Provider: Ramya Sutton Attending Provider: Ramya Sutton Primary Care Provider: Sarah Dove [facility] Course Hospital Course: female who is gestational carrier for Di-Di twin at 38w2d EGA who underwent a scheduled LTCS for malpresentation on 07/22/2021. Pt had been followed at [facility] since early in 1st trimester. complicated by insulin requiring gestational diabetes. Normal morphology and concordant growth of twins on surveillance. Twin A, the presenting twin, had been in variable presentation with most recent position double footling breech and this am transverse, spine up when examined on bedside u/s. Pt had been counseled that she was not a candidate for vaginal delivery and consented to LTCS with plan for bilateral tubal sterilization at time of delivery. Findings at time of surgery Viable female infants withseparate amniotic sacs andseparate placentas.? Twin A transverse spine up.? Weight 6 pounds 5 ounces. Parents plan to name her Jessica.? Twin B vertex 7 pounds 2 ounces.? Her parents will name her Donna.? Normal fallopian tubes uterus and ovaries. Home Meds and New Rx's Prescriptions: New oxycodone-acetaminophen 5-325 mg Tablet 1 tab PO Q6H PRN MDD 4 PRNQty: 10 0RF Continued fluticasone propionate 50 mcg/actuation spray,suspension 1 spray intranasal DAILY PRN Rx Instructions: administer into each nostril vitamin d PO esomeprazole magnesium [Nexium] 40 mg capsule,delayed release(DR/EC) 40 mg PO DAILY Qty: 60 5RF PNV cmb#[id number] fumarate-FA [] 1 EACH tablet 1 ea PO DAILY hydroxyzine pamoate [Vistaril] 25 mg capsule 25 mg PO QHS Qty: 30 1RF Discontinued alcohol swabs [Alcohol Prep Pads] Pads, Medicated 1 pad topical QID Qty: 200 2RF ursodiol 300 mg capsule 300 mg PO BID Qty: 60 2RF Humulin N NPH Insulin KwikPen 100 unit/mL (3 mL) insulin pen 10 unit subcut QHS Qty: 15 3RF Rx Instructions: 10 units in evening OneTouch Ultra Test Strip 1 strip miscellaneous QID 90 Days Qty: 100 3RF Rx Instructions: Quantity sufficient for 4 times daily testing No Action acetaminophen [Tylenol Extra Strength] 500 mg tablet 1,000 mg PO Q6H PRN magnesium oxide 250 mg magnesium tablet 250 mg PO BID (DME) blood-glucose meter [OneTouch Ultra2 Meter] [facility] [place] Rx Instructions .ROUTE .MEDSUPPLY Qty: 1 0RF Rx Instructions: As directed (DME) lancets [OneTouch UltraSoft Lancets] [facility] [place] See Rx Instructions .ROUTE .MEDSUPPLY Qty: 200 2RF Rx Instructions: As directed (DME) blood sugar diagnostic Strip See Rx Instructions .ROUTE .MEDSUPPLY Qty: 100 3RF Rx Instructions: As directed (DME) pen needle, diabetic 32 gauge x 1/6 needle See Rx Instructions .Route Qty: 100 3RF Rx Instructions: As directed (DME) Dexcom G6 Sensor Device See Rx Instructions .Route Qty: 3 2RF Rx Instructions: As directed (DME) blood sugar diagnostic Strip See Rx Instructions .ROUTE .MEDSUPPLY Qty: 100 3RF Rx Instructions: As directed Discharge Instructions Additional Instructions: You may shower. Avoid taking tub baths until your bleeding has stopped. Pat your incision dry after showering. Leave the Steri-Strips in place. They may come off by themselves and that is okay. Plan to return to the office on 08/06/2021 for incision check. Have a secretaries make an appointment for you to see Dr. Sutton or Dr. Shields. Use the Motrin at home for pain. You may take the Motrin and the Percocet at the same time. As we discussed you may returned to work on 08/03/2021. Stand Alone Forms: BC Discharge Instruc Activity:: No lifting over 10 pounds Equipment/Supplies:: You do not need to do blo Diet:: As Tolerated Discharge Orders Discharge Orders: Discharge Order (Routine); Ordered 07/24/21 Ordered By: Ramya Sutton DS: Summary Time Spent with Patient providing and/or coordinating discharge services: Less than 30 minutes Status at Discharge Functional status at discharge: independent ambulation Overall status at discharge: patient is progressing back to baseline Mental Status: mental status grossly normal Speech and Movement: speech and movement normal Mood: congruent mood Affect: normal affect Exam Narrative Exam Narrative: Postop day 2 from low transverse delivery for twin gestation with malpresentation of presenting twin. Pain is well controlled patient has not had a bowel movement but is conscious of avoiding constipation. Mood is good she will be discharged home with follow-up in approximately 2 weeks for incision check and wellness assessment. Const General: no acute distress Nutritional Appearance: average body habitus Orientation: alert, awake and oriented x3 Resp Effort & Inspection: normal respiratory effort Auscultation: clear to auscultation bilaterally Cardio Rate: regular rate Rhythm: regular rhythm GI Inspection: incision (Clean dry and intact. No ecchymosis or erythema) Palpation: soft and tender (Mild fundal discomfort. Uterus is involuting appropriately.) Auscultation: normal bowel sounds Skin General skin exam: no rashes or lesions noted Extrem General: normal to inspection, full ROM and no edema Psych Appearance: grossly normal Mental Status: mental status grossly normal Speech and Movement: speech and movement normal Mood: congruent mood Affect: normal affect DS: Data Vitals/I&O Vitals and I&O: Vital Signs Temperature 98.1 F 07/24/21 07:30 Pulse 77 07/24/21 07:30 Pulse Rhythm Regular 07/24/21 07:30 Respiratory Rate 16 07/24/21 07:30 Blood Pressure 98/57 L 07/24/21 00:01 Blood Pressure Mean 70 07/24/21 00:01 Pulse Oximetry 100 07/24/21 07:30 Oxygen Delivery Method Room Air 07/22/21 07:30 Oxygen Flow Rate 0 07/22/21 07:30 Pain Level 2 07/24/21 07:30 Intake & Output 07/23/21 07/23/21 07/24/21 11:59 23:59 11:59 Output Total 900 / 900 Balance -900 / -900 Output: Urine 900 / 900 Other: Urine Color Yellow Pale Urine Appearance Clear Urine Odor None Voiding Methods Toilet PFSH All Active Problems (Updated 07/24/21 @ 08:48 by Ramya Sutton MD) Dichorionic diamniotic twin gestation (Acute) Status post primary low transverse section (Acute) 07/21/2021 gestational carrier Di Di female twins: Donna Lopez. Biologic parents Placido and Francois. Breech presentation of fetus (Acute) Gestational diabetes (Acute) Pruritus of (Acute) Twin gestation in third trimester (Acute) GERD (gastroesophageal reflux disease) (Chronic) (Acute) Medical History (Updated 07/24/21 @ 08:48 by Ramya Sutton MD) Depression (09/26/12) Endometriosis Miscarriage 06/13/2020 embryonic demise of surrogate gestation at 7 weeks EGA. Rx with misoprostol. Vomiting affecting Surgical History (Updated 07/23/21 @ 12:51 by Ramya Sutton MD) Biopsy of breast (~2002) L breast. B9. Diagnostic Laproscopy (~2000) laparoscopy for endometriosis History of D&C 06/20/2020 Tooth extraction wisdom teeth. 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, is no longer a concern Maternal Aunt Diabetes type II Maternal Grandmother Diabetes type II Heart disease Social History Smoking/Tobacco Use Status: Former Tobacco Use Tobacco: How many years used: 15 Smoking risk assessment performed?: Yes Alcohol Intake: never Drug use: Never Substance use type: does not use Adopted: No Caregiver/Support person: No Foster care: No Household members: spouse and family Housing: other Details: Dorm parent at [facility] Number of Children: 3 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 Date GA/Weeks # Outcome Route Wgt Sex Labor Lgth Anesthes ia Location Prov Complic 06/22/09 39 No Successful vaginal 8 lb 2 oz Female 36 hrs [facility] 10/13/11 Unsuccessful 11/08/12 40 No Successful vaginal 9 lb 5 oz Male 28 hrs [facility] 05/06/16 40 No Successful vaginal 7 lb 2 hrs [facility] 03/10/18 Yes Successful vaginal 6 lb 2 oz Female 13hrs 49 min donna onal ramya francis Delivery Date: 10/13/11 Last Updated by: Sumaya Lilly RN SAB Delivery Date: 05/06/16 Last Updated by: Sumaya Lilly RN surrogate Delivery Date: 03/10/18 Last Updated by: Marilin Joshi M.D. 2nd twin double footling breech male Surrogate
[2021-07-24] MEDS: Acetaminophen 325 MG TAB 650 MG PO (12:36)
== END 2021-07-24 12:55 | disposition home or self-care (01) | DRG 785 ==
PROVIDERS: Obstetrics & Gynecology; Admitting Provider Obstetrics & Gynecology Gynecology; PCP Nurse Practitioner Family; Visit Provider Obstetrics & Gynecology Gynecology
PROC: 10D00Z1 Extraction of Products of Conception, Low, Open Approach (ICD-10-PCS; CPT 59514; principal; 2021-07-22 10:15)
DX: O30.043 Twin pregnancy, dichorionic/diamniotic, third trimester (principal); O32.2XX1 Maternal care for transverse and oblique lie, fetus 1; Z37.2 Twins, both liveborn; O24.424 Gestational diabetes mellitus in childbirth, insulin controlled; O99.62 Diseases of the digestive system complicating childbirth; Z3A.38 38 weeks gestation of pregnancy; Z30.2 Encounter for sterilization; K21.9 Gastro-esophageal reflux disease without esophagitis; O26.893 Other specified pregnancy related conditions, third trimester; L29.8 Other pruritus
CPT/HCPCS: 59514; 58611; 36415; 85027; 86850; 86900; 86901; 87635; 85025; 88302; 88307; J0456; J0690; J1885; J2310; J2370; J2405; J3010

== ENCOUNTER 2022-01-04 08:16 | Emergency (ER) | payer BC, SELFPAY ==
[2022-01-04 08:23] VITALS: BP 129/85; PULSE 92; RESP 18; TEMP 36; O2SAT 100
--- NOTE | 2022-01-04 08:45 | DI.CT_ITS ---
Exam(s) CT HEAD WO EXAM: CT HEAD WO CLINICAL HISTORY: frontal headache, tooth pain, r/o cva, sinus dz. TECHNIQUE: Imaging Protocol: Axial computed tomography images with coronal and sagittal reformatted images were created and reviewed COMPARISON: No exams were available for comparison FINDINGS: Ventricles and Extra axial spaces: Normal in size and morphology for the patient's age. Hemorrhage: None. Cerebral parenchyma: Normal. Midline shift: None. Brainstem/Cerebellum: Normal. Calvarium: Normal. Visualized Paranasal sinuses/Mastoids: Mucous retention at the floors of both maxillary sinuses. Min imal mucous retention tension in several ethmoid sinuses. Frontal sinuses appear clear. Soft Tissues: Unremarkable. IMPRESSION: Mild sinus disease. No acute intracranial process. RADIATION DOSE DELIVERED: 770.6mGy.cm Total DLP DATA REPOSITORY: All CT scans at this facility are submitted to the National Radiology Data Registry (NRDR) Dose Index Registry (DIR) with the [employer] (A[employer]). RADIATION OPTIMIZATION: All CT scans at this facility use at least one of these dose optimization te chniques: automated exposure control; mA and/or kV adjustment per patient size (includes targeted exa ms where dose is matched to clinical indication); or iterative reconstruction.
--- NOTE | 2022-01-04 08:47 | ED.GENADUL_ITS ---
Discharge Plan Disposition Patient Disposition: HOME Condition: Improving Discharge Details Clinical Impression: COVID-19, Headache Primary Care Provider: Sarah Dove ED Provider: Sheila Tijerina Home Meds and New Rx's Prescriptions: Continued acetaminophen [Tylenol Extra Strength] 500 mg tablet 1,000 mg PO Q6H PRN fluticasone propionate 50 mcg/actuation spray,suspension 1 spray intranasal DAILY PRN Rx Instructions: administer into each nostril vitamin d PO magnesium oxide 250 mg magnesium tablet 250 mg PO BID multivitamin [Daily Multi-Vitamin] Tablet 1 tab PO DAILY Kyleena 17.5 mcg/24 hrs (5 yrs) 19.5 mg intrauterine device 1 device intrauterine ONCE Qty: 1 0RF Rx Instructions: as a single dose Discharge Instructions Instructions: General Headache (ED), COVID-19 (Coronavirus Disease 2019) (ED) Additional Instructions: You tested positive for the COVID-19 virus today. Your symptoms may be secondary to persistent symptoms from COVID-19. The remainder of your lab tests and CT scan imaging of your head today are reassuring and show no evidence of acute concerning or significant findings. Your liver function tests were minimally elevated today and can be rechecked by your primary care doctor. Drink plenty of fluids and get plenty of rest. Alternate tylenol and motrin as needed and directed for pain. Follow-up with your primary care doctor in 1 week. Return to the emergency department with any worsening or new concerning symptoms such as persistent fevers, persistent vomiting, worsening headache or any other concerns. Discharge Data Discharge Date/Time-TO BE ENTERED AT DEPARTURE: 01/04/22 14:24 Discharge Physician: Sheila Tijerina Medical Decision Making 0830 -- 41-year-old female with no significant past medical history presents with frontal headache, photophobia and nausea since last night. 1 episode of vomiting. Tested positive for COVID last week. Vitals within normal limits. Patient appears uncomfortable but nontoxic. No focal deficits or meningeal signs. She has no sinus tenderness or evidence of dental infection. Differential diagnosis includes COVID, dehydration, sinus infection. Also consider CVA, venous sinus thrombosis, SAH. Will place an IV, bolus IV fluids, screening labs, Fluvid, stat CT head and give IV tylenol, decadron, zofran and reassess. 0930 --CT head negative. COVID test POSITIVE. 1000 --nursing staff unable nursing staff unable to obtain IV. I attempted 3 times at bedside and unsuccessful. Anesthesia unavailable for hours per nursing sup. Will continue to attempt IV. 1330 --labs reviewed and noted a normal white blood cell count. Normal electrolytes. Minimal elevation of ALT, protein and albumin. Patient reassessed and she feels much better and would like to go home. Discussed with patient that her symptoms could be secondary to COVID and that as she is improving, this is reassuring and less likely c/w cva or meningitis. Patient advised to increase fluids, rest. As she is 13 days out from symptom onset of COVID, she does not meet criteria for monoclonal antibody infusion or paxlovid. Advised to follow up with the primary care doctor for re-evaluation. Usual and customary return precautions given prior to discharge. Medical Records Medical records reviewed: Yes I reviewed the patient's medical records. Imaging Data Radiologic Study: Radiologist's impression: CT HEAD WO CLINICAL HISTORY: ? frontal headache, tooth pain, r/o cva, sinus dz. ? TECHNIQUE:? Imaging Protocol: Axial computed tomography images with coronal and sagittal reformatted images were created and reviewed COMPARISON:? No exams were available for comparison FINDINGS: Ventricles and Extra axial spaces: Normal in size and morphology for the patient's age. Hemorrhage: None. Cerebral parenchyma: Normal. Midline shift: None. Brainstem/Cerebellum: Normal. Calvarium: Normal. Visualized Paranasal sinuses/Mastoids: Mucous retention at the floors of both maxillary sinuses.? Minimal mucous retention tension in several ethmoid sinuses.? Frontal sinuses appear clear. Soft Tissues: Unremarkable. IMPRESSION: Mild sinus disease.? No acute intracranial process. Lab Data Lab results reviewed: Yes I reviewed the patient's lab results. Labs: Laboratory Tests Range/Units 01/04/22 01/04/22 01/04/22 08:57 11:29 11:29 WBC Cancelled RBC Cancelled Hgb Cancelled Hct Cancelled MCV Cancelled MCH Cancelled MCHC Cancelled RDW Cancelled Plt Count Cancelled MPV Cancelled Immature Gran % Cancelled Neutrophils % Cancelled Band Neutrophils % Cancelled Lymphocytes % Cancelled Atypical Lymphs % Cancelled Monocytes % Cancelled Eosinophils % Cancelled Basophils % Cancelled Metamyelocytes % Cancelled Myelocytes % Cancelled Promyelocytes % Cancelled Other Cells % Cancelled Nucleated RBC % Cancelled Absolute Neutrophils Cancelled Absolute Lymphocytes Cancelled Absolute Monocytes Cancelled Absolute Eosinophils Cancelled Absolute Basophils Cancelled RBC Morphology Cancelled Polychromasia Cancelled Hypochromasia Cancelled Poikilocytosis Cancelled Basophilic Stippling Cancelled Anisocytosis Cancelled Microcytosis Cancelled Macrocytosis Cancelled Spherocytes Cancelled Tear Drop Cells Cancelled Ovalocytes Cancelled Stomatocytes Cancelled [place] Bodies Cancelled Sachin Cells/Echinocytes Cancelled Acanthocytes (Spur) Cancelled Schistocytes Cancelled Sodium (136-145) mmol/L 139 Potassium (3.5-5.1) mmol/L 3.9 Chloride (98-107) mmol/L 102 Carbon Dioxide (21.0-32.0) mmol/L 29.0 Anion Gap (3-11) mmol/L 8.0 BUN (7-18) mg/dL 10 Creatinine (0.55-1.02) mg/dL 0.5 L Est GFR (CKD-EPI 2020) (mL/min/1.73m2) 120.77 Glucose (74-106) mg/dL 92 Calcium (8.5-10.1) mg/dL 9.3 Total Bilirubin (0.2-1.0) mg/dL 0.4 AST (15-37) U/L 33 ALT (14-59) U/L 80 H Alkaline Phosphatase (46-116) U/L 118 H Total Protein (6.4-8.2) g/dL 9.0 H Albumin (3.4-5.0) g/dL 5.1 H COVID-19 Source Not Applicable SARS-CoV-2 (PCR) (Negative) Positive A Influenza Type A (PCR) (Negative) Negative Influenza Type B (PCR) (Negative) Negative RSV (PCR) (Negative) Negative Range/Units 01/04/22 01/04/22 11:55 11:55 WBC 9.07 RBC 4.44 Hgb 13.0 Hct 36.7 MCV 83 MCH 29.3 MCHC 35.4 RDW 11.7 Plt Count 269 MPV 11.2 H Immature Gran % 0.3 Neutrophils % 80.5 Band Neutrophils % Lymphocytes % 15.9 Atypical Lymphs % Monocytes % 2.8 Eosinophils % 0.2 Basophils % 0.3 Metamyelocytes % Myelocytes % Promyelocytes % Other Cells % Nucleated RBC % 0.0 Absolute Neutrophils 7.30 H Absolute Lymphocytes 1.44 Absolute Monocytes 0.25 Absolute Eosinophils 0.02 Absolute Basophils 0.03 RBC Morphology Polychromasia Hypochromasia Poikilocytosis Basophilic Stippling Anisocytosis Microcytosis Macrocytosis Spherocytes Tear Drop Cells Ovalocytes Stomatocytes [place] Bodies Sachin Cells/Echinocytes Acanthocytes (Spur) Schistocytes Sodium (136-145) mmol/L Cancelled Potassium (3.5-5.1) mmol/L Cancelled Chloride (98-107) mmol/L Cancelled Carbon Dioxide (21.0-32.0) mmol/L Cancelled Anion Gap (3-11) mmol/L Cancelled BUN (7-18) mg/dL Cancelled Creatinine (0.55-1.02) mg/dL Cancelled Est GFR (CKD-EPI 2020) (mL/min/1.73m2) Cancelled Glucose (74-106) mg/dL Cancelled Calcium (8.5-10.1) mg/dL Cancelled Total Bilirubin (0.2-1.0) mg/dL Cancelled AST (15-37) U/L Cancelled ALT (14-59) U/L Cancelled Alkaline Phosphatase (46-116) U/L Cancelled Total Protein (6.4-8.2) g/dL Cancelled Albumin (3.4-5.0) g/dL Cancelled COVID-19 Source SARS-CoV-2 (PCR) (Negative) Influenza Type A (PCR) (Negative) Influenza Type B (PCR) (Negative) RSV (PCR) (Negative) HPI General Mode of arrival: ambulatory . Date/Time Provider Initiated Documentation: 01/04/22 08:23 . Limitations to Documentation: no limitations . Information obtained by: patient . HPI Narrative: Patient is a 41-year-old female with with no significant past medical history presents with frontal headache since 730 last night. Patient states she was sitting when she developed a severe pressure-like headache behind both of her eyes. She is also complaining of pain in her jaw and teeth. She is admitting to sensitivity to light with nausea and one episode of vomiting last night. She states she took one of her husbands tramadol last night and this morning with some relief. She states last week she had a dull occipital headache and sore throat and took a home COVID test which was positive. She states she feels the covid symptoms completely resolved until her worsening headache last night. She has received a total of 3 COVID vaccines but has not yet received a new booster. She denies fever, flashing lights or seeing spots at this time, sore throat, chest pain, shortness of breath, difficulty breathing or neck pain. Related Data Home Medications Medication Instructions Recorded Confirmed acetaminophen 500 mg tablet 1,000 mg PO Q6H PRN 12/19/17 11/02/21 (Tylenol Extra Strength) vitamin d PO 01/19/21 11/02/21 fluticasone propionate 50 1 spray intranasal DAILY PRN 03/03/21 11/02/21 mcg/actuation nasal spray,suspension magnesium oxide 250 mg PO BID 03/03/21 11/02/21 multivitamin (Daily Multi-Vitamin 1 tab PO DAILY 09/04/21 11/02/21 tablet) levonorgestrel 17.5 mcg/24 hrs 1 device intrauterine ONCE #1 ea 09/28/21 11/02/21 (5yrs) 19.5mg intrauterine device (Kyleena) Previous Rx's Medication Instructions Recorded levonorgestrel 17.5 mcg/24 hrs 1 device intrauterine ONCE #1 ea 09/28/21 (5yrs) 19.5mg intrauterine device (Kyleena) Allergies Allergy/AdvReac Type Severity Reaction Status Date / Time doxycycline Allergy Intermediate Skin Rash Verified 09/28/21 13:15 penicillin G Allergy Mild RASH,DIZZIN Verified 09/28/21 13:15 ESS DUST Allergy Mild HIVES,WATERY Uncoded 09/28/21 13:15 EYES, SNEEZING seasonal allergies Allergy Unknown Uncoded 09/28/21 13:15 General Stated Complaint: Headache EMMIE: 3 Review of Systems All systems reviewed & are unremarkable except as noted in HPI and below Constitutional Constitutional: Reports as per HPI, Denies chills, Denies fever(s) and Reports headache(s) Eyes Eyes: Reports blurry vision and Reports photophobia ENT Ears, Nose, Mouth, and Throat: Reports dizziness, Reports headache(s), Denies sore throat and Denies throat swelling Cardiovascular Cardiovascular: Denies chest pain and Denies dyspnea Respiratory Respiratory: Denies cough and Denies dyspnea Gastrointestinal Gastrointestinal: Denies abdominal pain, Denies diarrhea, Reports nausea and Denies vomiting Genitourinary Genitourinary: Denies hematuria and Denies dysuria Musculoskeletal Musculoskeletal: Denies back pain and Denies numbness Integumentary/Breasts Skin/Breast: Denies lesions and Denies rash Neurologic Neurologic: Reports dizziness, Reports headache(s), Denies localized weakness and Denies numbness Allergic/Immunologic Allergic/Immunologic: Denies throat swelling PFSH All Active Problems (Updated 01/04/22 @ 14:10 by Sheila Tijerina DO) COVID-19 (Acute) Headache (Acute) IUD (intrauterine device) in place (Acute) Skin tag of vulva (Acute) 09/2021 left mons pubis. Cryotherapy. Dysmenorrhea (Acute) 09/2021 Kyleena IUD inserted GERD (gastroesophageal reflux disease) (Chronic) Medical History (Updated 01/04/22 @ 14:10 by Sheila Tijerina DO) Depression (09/26/12) Dichorionic diamniotic twin gestation Endometriosis Gestational diabetes Miscarriage 06/13/2020 embryonic demise of surrogate gestation at 7 weeks EGA. Rx with misoprostol. Vomiting affecting Surgical History (Updated 09/04/21 @ 13:21 by Ramya Sutton MD) Biopsy of breast (~2002) L breast. B9. Diagnostic Laproscopy (~2000) laparoscopy for endometriosis History of D&C 06/20/2020 Status post primary low transverse section 07/21/2021 gestational carrier Di Di female twins: Jessica, Donna. Biologic parents Placido and Francois. Tooth extraction wisdom teeth. 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, is no longer a concern Maternal Aunt Diabetes type II Maternal Grandmother Diabetes type II Heart disease Social History Smoking/Tobacco Use Status: Former Tobacco Use Tobacco: How many years used: 15 Smoking risk assessment performed?: Yes Alcohol Intake: never Drug use: Never Substance use type: does not use Adopted: No Caregiver/Support person: No Foster care: No Household members: spouse and family Housing: other Details: Dorm parent at [facility] Number of Children: 3 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 Date GA/Weeks # Preg Succ Route Wgt Sex Labor Lgth Anesth esia Location [facility] Complic 06/22/09 39 No vaginal 3685.438 g Female 36 hrs [facility] A[facility] 10/13/11 11/08/12 40 No vaginal 4224.079 g Male 28 hrs [facility] 05/06/16 40 No vaginal 3175.147 g [facility] hrs [facility] 03/10/18 Yes vaginal 2778.253 g Female 13hrs 49 min regional ramya francis 07/22/21 38 Yes 2863.302 g Female A nnpastor Sutton 07/22/21 38 Yes Yes 3231.846 g Female Delivery Date: 10/13/11 Last Updated by: Sumaya Lilly RN SAB Delivery Date: 05/06/16 Last Updated by: Sumaya Lilly RN surrogate Delivery Date: 03/10/18 Last Updated by: Marilin Joshi M.D. 2nd twin double footling breech male Surrogate Delivery Date: 07/22/21 Last Updated by: Nae Garg LPN Baby B 7lbs 2 oz female Delivery Date: 07/22/21 Last Updated by: Ramya Sutton MD gestational carrier. breech presentation. Exam Const General: cooperative and uncomfortable Orientation: alert, awake and oriented x3 HENMT Head: normal to inspection Face and sinus: normal facial exam Eyes General: appearance normal, both eyes and all related structures Pupils: PERRL EOM: EOM intact bilaterally Neck Neck: normal visual inspection and No submandibular swelling Lymphatic: no lymphadenopathy noted Chest Chest: normal inspection of the chest and no tenderness Resp Effort & Inspection: normal respiratory effort and able to speak in complete sentences Auscultation: clear to auscultation bilaterally Cardio Rate: regular rate Rhythm: regular rhythm GI Inspection: normal to inspection Palpation: soft, not firm, not rigid and nontender Auscultation: normal bowel sounds Back/Spine/Pelvis Thoracic/Lumbar Spine: thoracic and lumbar spine normal to inspection Pelvis: no pain with anterior-posterior compression Skin General skin exam: no rashes or lesions noted Neuro General: patient alert, patient awake, patient oriented x3, moves all extremities and no meningeal signs Cranial Nerves: CN's II-XI intact bilaterally Cognition: normal cognition Speech: speech normal Motor: muscle tone normal throughout and strength 5/5 throughout Sensory Exam: no sensory deficits noted Extrem General: normal to inspection, full ROM, capillary refill normal, no calf tenderness bilaterally and no edema Psych Appearance: grossly normal Mental Status: mental status grossly normal Speech and Movement: speech and movement normal Affect: normal affect Course Vital Signs Vital signs: Vital Signs Temperature 96.8 F L 01/04/22 08:23 Pulse 92 H 01/04/22 08:23 Respiratory Rate 18 01/04/22 08:23 Blood Pressure 129/85 01/04/22 08:23 Pulse Oximetry 100 01/04/22 08:23 Temperature 96.8 F L 01/04/22 08:23 Temperature Source Tympanic 01/04/22 08:23 Pulse 92 H 01/04/22 08:23 Respiratory Rate 18 01/04/22 08:23 Blood Pressure 129/85 01/04/22 08:23 Blood Pressure Position Sitting 01/04/22 08:23 Pulse Oximetry 100 01/04/22 08:23 Oxygen Delivery Method Room Air 01/04/22 08:23 Oxygen Flow Rate 0 01/04/22 08:23
[2022-01-04 09:53] LABS: Influenza A PCR Negative (Negative); Influenza B PCR Negative (Negative); RSV PCR Negative (Negative)
[2022-01-04 09:55] LABS: COVID-19 PCR Positive (Negative)
[2022-01-04 12:00] LABS: Abs Immature Grans 0.03 10^3/uL (0.0-0.06); Absolute Basophil Count 0.03 10^3/uL (0.0-0.2); Absolute Eosinophil Count 0.02 10^3/uL (0.0-0.7); Absolute Lymphocyte Count 1.44 10^3/uL (1.2-3.4); Absolute Monocyte Count 0.25 10^3/uL (0.1-0.8); Basophils % 0.3; Eosinophils % 0.2; HCT 36.7 % (36.0-46.0); Immature Grans % 0.3; Lymphocytes % 15.9; MCH 29.3 pg (27.0-33.0); MCHC 35.4 % (32.0-36.0); MCV 83 fL (80-95); MPV 11.2 fL (8.0-11.0); Monocytes % 2.8; Neutrophils % 80.5; Platelet Count 269 10^3/uL (130-400); RBC 4.44 10^6/uL (3.93-5.22); RDW 11.7 % (11.7-14.6); RDW-SD 33.5 fL; WBC 9.07 10^3/uL (4.4-10.8)
[2022-01-04 12:07] LABS: ALT 80 U/L (14-59); AST 33 U/L (15-37); Albumin 5.1 g/dL (3.4-5.0); Alkaline Phosphatase 118 U/L (46-116); BUN 10 mg/dL (7-18); Bilirubin, Total 0.4 mg/dL (0.2-1.0); CREATININE 0.5 mg/dL (0.55-1.02); Calcium 9.3 mg/dL (8.5-10.1); Chloride 102 mmol/L (98-107); Estimated GFR 120.77 (mL/min/1.73m2); Glucose 92 mg/dL (74-106); Sodium 139 mmol/L (136-145)
[2022-01-04 12:10] LABS: Potassium 3.9 mmol/L (3.5-5.1)
[2022-01-04] MEDS: ACETAMINOPHEN 1,000 MG/100 ML BTL 400 MG IVPB (12:25)
[2022-01-04] MEDS: Dexamethasone 10 MG/ML VIAL IVP (12:26)
[2022-01-04] MEDS: Ondansetron 4 MG/2 ML VIAL IVP (12:26)
[2022-01-04] MEDS: Ketorolac 30 MG/ML VIAL IVP (12:26)
[2022-01-04] MEDS: Normal Saline 1,000 ML 1000 ML IV (12:26)
== END 2022-01-04 14:24 | disposition home or self-care (01) ==
PROVIDERS: Emergency Provider Physician Assistant; PCP Nurse Practitioner Family
DX: U07.1 COVID-19 (principal); R51.9 Headache, unspecified; K08.9 Disorder of teeth and supporting structures, unspecified
CPT/HCPCS: 80053; 81025; 87637; 96361; 96374; 96375; 99284; 70450; 85025; J0131; J1100; J1885; J2405

== ENCOUNTER 2022-01-22 18:24 | Outpatient (REF) | payer BC, SELFPAY | END 2022-01-22 18:25 | disposition home or self-care (01) | LOC: LBN 18:24 | PROVIDERS: PCP Nurse Practitioner Family; Visit Provider Physician Assistant Medical | DX: J02.9 Acute pharyngitis, unspecified (principal) | CPT/HCPCS: 87070 ==

== ENCOUNTER 2022-03-25 16:15 | Outpatient (REF) | payer BC, SELFPAY ==
[2022-03-25 19:35] LABS: Abs Immature Grans 0.01 10^3/uL (0.0-0.06); Absolute Basophil Count 0.05 10^3/uL (0.0-0.2); Absolute Eosinophil Count 0.11 10^3/uL (0.0-0.7); Absolute Lymphocyte Count 2.09 10^3/uL (1.2-3.4); Absolute Monocyte Count 0.41 10^3/uL (0.1-0.8); Basophils % 0.6; Eosinophils % 1.4; HCT 39.4 % (36.0-46.0); HGB 13.7 g/dL (11.2-15.7); Immature Grans % 0.1; Lymphocytes % 26.2; MCHC 34.8 % (32.0-36.0); MCV 84 fL (80-95); Monocytes % 5.1; Neutrophils % 66.6; Platelet Count 246 10^3/uL (130-400); RBC 4.72 10^6/uL (3.93-5.22); RDW 12.1 % (11.7-14.6); RDW-SD 36.2 fL; WBC 7.97 10^3/uL (4.4-10.8)
[2022-03-25 19:56] LABS: ALT 19 U/L (14-59); AST 24 U/L (15-37); Albumin 4.8 g/dL (3.4-5.0); Alkaline Phosphatase 55 U/L (46-116); Anion Gap 8.2 mmol/L (3-11); BUN 9 mg/dL (7-18); Bilirubin, Total 0.3 mg/dL (0.2-1.0); CO2 26.8 mmol/L (21.0-32.0); CREATININE 0.6 mg/dL (0.55-1.02); Calcium 8.9 mg/dL (8.5-10.1); Chloride 101 mmol/L (98-107); Estimated GFR 115.57 (mL/min/1.73m2); Glucose 92 mg/dL (74-106); Potassium 4.2 mmol/L (3.5-5.1); Sodium 136 mmol/L (136-145); TSH (W/Ref FT4) 0.46 uIU/mL (0.36-3.74); Total Protein 8.1 g/dL (6.4-8.2)
== END 2022-03-25 16:16 | disposition home or self-care (01) ==
LOC: NCHCN 16:15
PROVIDERS: PCP Nurse Practitioner Family; Visit Provider Nurse Practitioner Family
DX: D64.9 Anemia, unspecified (principal); R79.89 Other specified abnormal findings of blood chemistry; F43.9 Reaction to severe stress, unspecified; Z00.00 Encounter for general adult medical examination without abnormal findings; E07.89 Other specified disorders of thyroid
CPT/HCPCS: 80053; 84443; 85025

== ENCOUNTER 2022-06-01 02:27 | Outpatient (CLI) | payer BC, SELFPAY ==
[2022-06-01 16:30] LABS: Abs Immature Grans 0.02 10^3/uL (0.0-0.06); Absolute Basophil Count 0.03 10^3/uL (0.0-0.2); Absolute Eosinophil Count 0.07 10^3/uL (0.0-0.7); Absolute Monocyte Count 0.38 10^3/uL (0.1-0.8); Absolute Neutrophil Count 5.94 10^3/uL (1.2-6.7); Basophils % 0.4; Eosinophils % 0.9; HCT 38.5 % (36.0-46.0); HGB 13.2 g/dL (11.2-15.7); Immature Grans % 0.2; Lymphocytes % 19.9; MCH 28.4 pg (27.0-33.0); MCHC 34.3 % (32.0-36.0); MCV 83 fL (80-95); MPV 9.5 fL (8.0-11.0); Monocytes % 4.7; Neutrophils % 73.9; Platelet Count 250 10^3/uL (130-400); RBC 4.65 10^6/uL (3.93-5.22); RDW 12.6 % (11.7-14.6); RDW-SD 37.5 fL; WBC 8.04 10^3/uL (4.4-10.8)
[2022-06-01 17:42] LABS: Anion Gap 6.4 mmol/L (3-11); BUN 9 mg/dL (7-18); CO2 27.6 mmol/L (21.0-32.0); CREATININE 0.5 mg/dL (0.55-1.02); Calcium 9.2 mg/dL (8.5-10.1); Chloride 105 mmol/L (98-107); Estimated GFR 120.77 (mL/min/1.73m2); Glucose 90 mg/dL (74-106); Sodium 139 mmol/L (136-145)
[2022-06-01 17:43] LABS: HCG Qual (Serum) Negative
== END 2022-06-01 02:28 | disposition home or self-care (01) ==
LOC: LBO 02:27
PROVIDERS: PCP Nurse Practitioner Family; Visit Provider Obstetrics & Gynecology Gynecology
DX: N93.8 Other specified abnormal uterine and vaginal bleeding (principal); Z01.818 Encounter for other preprocedural examination; Z01.812 Encounter for preprocedural laboratory examination
CPT/HCPCS: 36415; 80048; 86850; 86900; 86901; 84703; 85025

== ENCOUNTER 2022-06-02 07:30 | Day surgery (SDC) | payer BC, SELFPAY ==
[2022-06-02] VITALS (9 sets, daily range): BP systolic 91–127; BP diastolic 41–85; PULSE 66–85; RESP 8–19; TEMP 36.4–36.6; O2SAT 97–100; BMI 21.9
[2022-06-02] MEDS: Lactated Ringers 1,000 ML 125 ML IV (08:03)
--- NOTE | 2022-06-02 08:11 | ANES.PREOP_ITS ---
General Info Date of Service Date Performed: 06/02/22 Height: 5 ft 8 in Weight: 65.317 kg Body Mass Index (BMI): 21.9 Surgical Procedure: Operation Date: 06/02/22 09:10 Proposed Procedure Side Surgeon p [place] Thermal Endometrial Ablation Ramya Sutton MD Meds Allergies and Home Medications Allergies Allergy/AdvReac Type Severity Reaction Status Date / Time doxycycline Allergy Intermediate Skin Rash Verified 06/02/22 07:45 penicillin G Allergy Mild RASH,DIZZIN Verified 06/02/22 07:45 ESS DUST Allergy Mild HIVES,WATERY Uncoded 06/02/22 07:45 EYES, SNEEZING seasonal allergies Allergy Unknown Uncoded 06/02/22 07:45 Home Medication Medication Instructions Recorded acetaminophen 500 mg tablet 1,000 mg PO Q6H PRN 12/19/17 (Tylenol Extra Strength) vitamin d 2,000 units PO DAILY 01/19/21 fluticasone propionate 50 1 spray intranasal DAILY PRN 03/03/21 mcg/actuation nasal spray,suspension magnesium oxide 250 mg PO BID 03/03/21 multivitamin (Daily Multi-Vitamin 1 tab PO DAILY 09/04/21 tablet) levonorgestrel 17.5 mcg/24 hrs 1 device intrauterine ONCE #1 ea 09/28/21 (5yrs) 19.5mg intrauterine device (Kyleena) escitalopram oxalate 10 mg tablet 10 mg PO DAILY 05/11/22 (Lexapro) hydroxyzine pamoate 25 mg capsule 25 mg PO HS 06/01/22 Current Visit Medications: Current Medications Generic Name Dose Route Start Last Admin Trade Name Freq PRN Reason Stop Dose Admin Ringer's Solution 1,000 mls @ 125 mls/hr 06/02/22 06:00 06/02/22 08:03 IV 07/01/22 23:59 125 mls/hr INFUSION LALI Administration IV Miscellaneous Supplies 1 each 06/02/22 06:00 Iv Access IV 07/01/22 23:59 DIRECTED LALI Sodium Chloride 0 ml 06/02/22 06:00 Normal Saline Flush 10 Ml Syr IV 07/01/22 23:59 PRN PRN Sodium Chloride 0 ml 06/02/22 06:00 Normal Saline 10 Ml Vial IJ 07/01/22 23:59 DIRECTED PRN Sterile Water 0 ml 06/02/22 06:00 Water,Injection,Sterile 10 Ml Vial IJ 07/01/22 23:59 DIRECTED PRN PFSH Active Problems Active Problems: Problem Status Onset Code Abnormal uterine bleeding (AUB) N93.9 COVID-19 U07.1 IUD (intrauterine device) in place Z97.5 Skin tag of vulva N90.89 Dysmenorrhea N94.6 GERD (gastroesophageal reflux disease) K21.9 Medical History Medical History Depression (09/26/12) Dichorionic diamniotic twin gestation Endometriosis Gestational diabetes Miscarriage 06/13/2020 embryonic demise of surrogate gestation at 7 weeks EGA. Rx with misoprostol. Vomiting affecting Surgical History Surgical History Biopsy of breast (~2002) L breast. B9. Diagnostic Laproscopy (~2000) laparoscopy for endometriosis History of D&C 06/20/2020 Status post primary low transverse section 07/21/2021 gestational carrier Di Di female twins: Donna Lopez. Biologic parents Placido and Francois. Tooth extraction wisdom teeth. Tobacco Smoking/Tobacco Use Status: Former Tobacco Use Passive smoking exposure: No Alcohol Alcohol Intake: never Substance Use Substance use: Never Substance use type: does not use Prental History History 6 Para 5 Hx # Term Pregnancies 5 Multiple births 2 Hx # Pregnancies 0 Ectopic pregnancies 0 AB induced 0 Hx Number of Living Children 7 AB spontaneous 1 Past Pregnancies Del. Date GA/Weeks # Preg Succ Route Wgt Sex Labor Lgth Anesth esia Location [facility] 06/22/09 39 No vaginal 3685.438 g Female 36 hrs [facility] 10/13/11 11/08/12 40 No vaginal 4224.079 g Male 28 hrs [facility] Anea 05/06/16 40 No vaginal 3175.147 g 2 hrs [facility] 03/10/18 Yes vaginal 2778.253 g Female 13hrs 49 min regional ramya francis 07/22/21 38 Yes 2863.302 g Female A nne [place] 07/22/21 38 Yes Yes 3231.846 g Female Delivery Date: 10/13/11 Last Updated by: Sumaya Maxx RN SAB Delivery Date: 05/06/16 Last Updated by: Sumaya Lilly RN surrogate Delivery Date: 03/10/18 Last Updated by: Marilin Joshi M.D. 2nd twin double footling breech male Surrogate Delivery Date: 07/22/21 Last Updated by: Nae Garg LPN Baby B 7lbs 2 oz female Delivery Date: 07/22/21 Last Updated by: Ramya Sutton MD gestational carrier. breech presentation. Vital Signs and Lab Results Vital Signs Most Recent Vital Signs in EMR: Most Recent Vital Signs Temp Pulse Resp BP Pulse Ox 36.6 C 85 8 L 127/72 100 06/02/22 07:30 06/02/22 07:30 06/02/22 07:30 06/02/22 07:30 06/02/22 07:30 Lab Results Blood Type / Crossmatch: Patient ABO/Rh O Positive 06/01/22 Antibody Screen NEGATIVE 06/01/22 Complete Blood Count: White Blood Count 8.04 10^3/uL (4.4-10.8) 06/01/22 16:20 Red Blood Count 4.65 10^6/uL (3.93-5.22) 06/01/22 16:20 Hemoglobin 13.2 g/dL (11.2-15.7) 06/01/22 16:20 Hematocrit 38.5 % (36.0-46.0) 06/01/22 16:20 Platelet Count 250 10^3/uL (130-400) 06/01/22 16:20 Complete Metabolic Panel: Sodium 139 mmol/L (136-145) 06/01/22 16:20 Potassium 4.0 mmol/L (3.5-5.1) 06/01/22 16:20 Chloride 105 mmol/L (98-107) 06/01/22 16:20 Carbon Dioxide 27.6 mmol/L (21.0-32.0) 06/01/22 16:20 BUN 9 mg/dL (7-18) 06/01/22 16:20 Creatinine 0.5 mg/dL (0.55-1.02) L 06/01/22 16:20 Est GFR (CKD-EPI 2020) 120.77 (mL/min/1.73m2) 06/01/22 16:20 Calcium 9.2 mg/dL (8.5-10.1) 06/01/22 16:20 Glucose 90 mg/dL (74-106) 06/01/22 16:20 Liver Function Panel: No Data to Display Coagulation Panel: No Data to Display Cardiac Panel: No Data to Display Arterial Blood Gas: No Data to Display Venous Blood Gas: No Data to Display Pancreas Panel: No Data to Display Thyroid Panel: No Data to Display Infectious Disease: No Data to Display Blood Cultures: No Data to Display Toxicology Panel: No Data to Display Panel: Serum HCG, Qualitative Negative 06/01/22 16:20 Anesthesia Assessment and Plan Anesthesia History Personal History: No History of Anesthesia Complications Family History: No Family History of Anesthesia Complications Exercise Tolerance Exercise Tolerance: Metabolic Equivalents>4 Pertinent Negatives Pertinent Negatives: No Symptoms of GERD, No Major Cardiovascular Symptoms or Complaints and No Major Pulmonary Symptoms or Complaints Cardiac & Pulmonary Exam Cardiac Exam: Normal S1/S2 Heart Sounds Pulmonary Exam: Clear Bilateral Breath Sounds Implantable Cardiac Device Does patient have a Pacemaker or an ICD?: No Airway Exam Known Difficult Airway: No Mallampati Class: 1 Mouth Opening: Normal (> 3cm) Thyromental Distance: Greater than 3 cm Neck Range of Motion: Full ROM Neck Circumference: Normal Teeth Condition: Normal Dentition ASA Classification ASA Score: ASA 2 Emergency Case?: No NPO Status NPO Status: NPO Clears >2 hours, Solids >8 hours Status Status: Negative HCG Anesthesia Plan Resuscitation Status: Full Code Anesthesia Technique: General Anesthesia Airway Planned: LMA Monitors Used: Standard Monitors
[2022-06-02] MEDS: Silver Nitrate Stick 1 EACH (09:21)
--- NOTE | 2022-06-02 09:49 | W.PM.DSUDISC ---
Date of service: 06/02/22 Time of Service: 09:49 Discharge Plan Disposition Patient Disposition: Home Condition: Good Discharge Details Reason For Visit: hydrothermal endometrial ablation Attending Provider: Ramya Sutton Primary Care Provider: Sarah Dove Home Meds and New Rx's Prescriptions: No Action acetaminophen [Tylenol Extra Strength] 500 mg tablet 1,000 mg PO Q6H PRN fluticasone propionate 50 mcg/actuation spray,suspension 1 spray intranasal DAILY PRN Rx Instructions: administer into each nostril vitamin d 2,000 units PO DAILY magnesium oxide 250 mg magnesium tablet 250 mg PO BID multivitamin [Daily Multi-Vitamin] Tablet 1 tab PO DAILY Kyleena 17.5 mcg/24 hrs (5 yrs) 19.5 mg intrauterine device 1 device intrauterine ONCE Qty: 1 0RF Rx Instructions: as a single dose escitalopram oxalate [Lexapro] 10 mg tablet 10 mg PO DAILY hydroxyzine pamoate 25 mg capsule 25 mg PO HS Patient Comments: TAKE ONE CAPSULE BY MOUTH AT BEDTIME Discharge Instructions Additional Instructions: You can expect some uterine bleeding for the this week followed by 4 weeks of yellow watery discharge. Call Dr. Sutton if you develop a fever over 101 degrees or have pain not relieved by Ibuprofen. No intercourse until the vaginal discharge has stopped. Please make a follow up appointment with Dr. Sutton for 2 weeks in the office. Stand Alone Forms: DSU Post op Instructions Activity:: Activity as Tolerated Diet:: As Tolerated Discharge Orders Discharge Orders: Discharge Order (Routine); Ordered 06/02/22 Ordered By: Ramya Sutton
--- NOTE | 2022-06-02 09:52 | ENDOMET_PTH ---
PATIENT: Flower Cali LOC: [facility] U#:[id number] AGE/SX: 41/F ROOM: RE06/02/[address]: Ramya Sutton : 1980 BED: DIS: 06/02/2022 SPEC #: [id number] RECD: 06/02/22 12:41 STATUS: CHARLENE REQ #: [id number] REGINE: 06/02/22 09:[address]: Ramya Sutton DEPT: Surgical Specimen RECD BY: Christa Mathew ENTERED: 06/02/22 12:42 SP TYPE: Endomet OTHR DR: Sarah Dove Tissues: 1 - ENDOMETRIUM BX/MILVIA Procedures: GROSS AND MICRO LEVEL 4 Comments: [id number]
--- NOTE | 2022-06-02 09:56 | W.PM.OP ---
Date of service: 06/02/22 Time of Service: 09:56 Operative Note Operative Note DATE OF PROCEDURE: 06/02/22 PRE-OP DIAGNOSIS: abnormal uterine bleeding PROCEDURE: Removal of IUD. Endometrial biopsy. Hydrothermal endometrial ablation. SURGEON: Ramya Sutton ANESTHESIA TYPE: General LMA/ETT Refer to Anesthesia Record ESTIMATED BLOOD LOSS: 5 PATHOLOGY: other (endometrial biopsy to pathology) Patient was transported to: PACU Patient's condition: stable Indications: 41yo female with a history of abnormal uterine bleeding and dysmenorrhea previously treated with a Kyleena IUD. The patient had improvement in the amount of heavy menses and dysmenorrhea with the Kyleena in place but experienced break through bleeding and was bleeding 2 weeks out of each month. She requested an alternative to the IUD.? Findings: Pt currently menstruating. Uterine lining thick without intracavitary filling defects. Both tubal ostia visualized. Procedure Description: Patient was taken to the operating room where she was placed in the dorsal supine position and general anesthesia was administered without difficulty. She was then placed in the dorsolithotomy position in yellowfin stirrups and prepped and draped in the usual sterile fashion. SCDs were in place. No antibiotics were required. After a surgical timeout was performed a bivalve speculum was placed in the patient's vagina. The Kyleena IUD string was grasped and the IUD removed intact. Both arms were visualized. A single-tooth tenaculum was used to grasp the anterior lip of the cervix and an endometrial biopsy pipelle was introduced into the uteirne cavity and all four quadrants of the cavity were sampled and the sample placed in formalin and sent to pathology. Cervix was then sequentially dilated to a maximum of 8 Arlin. A hysteroscope sheath was inserted into the uterine cavity and a cavity assessment was performed with the above noted findings. The tip of the hysteroscope sheath was positioned to allow visualization of the uterine fundus, both tubal ostia in the midportion of the uterine cavity. The sheath was protected from the vaginal padilla by the speculum. Heated isotonic saline was then administered via gravity into the uterus through the sheath. Once a safety assessment was performed the treatment phase of the procedure began and under direct observation the uterine cavity was treated with heated isotonic saline at 90 ?C for 10 minutes. Intrauterine cool-down phase was performed for 1 minute. The uterine cavity was carefully assessed with hysteroscopy and the uterus was noted to have a satisfactory treatment effect and the integrity of the uterine cavity was confirmed. After these findings the hysteroscope was removed as were the instruments removed from the vagina. Tenaculum site was treated with Silver Nitrate and noted to be hemostatic. The patient was placed in the dorsal supine position successfully awakened from anesthesia and transported to day surgery unit in stable condition. All sponge lap needle counts correct x2
[2022-06-02] MEDS: fentaNYL 100 MCG/2 ML VIAL IVP ×2 (09:59→10:15)
--- NOTE | 2022-06-02 10:48 | W.ANESPOSTOP ---
Postoperative Evaluation Date, Time and Location Date Performed: 06/02/22 Time Performed: 10:45 Patient Location: Day Surgery Unit Vital Signs Most Recent Imported Vital Signs: Most Recent Vital Signs Temp Pulse Resp BP Pulse Ox 36.6 C 74 17 91/62 L 97 06/02/22 10:25 06/02/22 10:25 06/02/22 10:25 06/02/22 10:25 06/02/22 10:25 Pain Score Most Recent Pain Score: Most Recent Pain Score Pain Level 2 06/02/22 10:25 Assessment Mental Status: Awake (Alert & Oriented to Patient Baseline) Airway and Respiratory Function: Patent airway with normal (patient baseline) respiratory exam Cardiovascular Function: Hemodynamically Stable Hydration Status: Adequately Hydrated Nausea & Vomiting: No Nausea or Vomiting Pain: Pain is tolerable per patient Peripheral Nerve Block: Patient did not receive a nerve block
== END 2022-06-02 11:15 | disposition home or self-care (01) ==
PROVIDERS: PCP Nurse Practitioner Family; Visit Provider Obstetrics & Gynecology Gynecology
PROC: (CPT 58353; principal; 2022-06-02 09:00)
PROC: (CPT 58563; 2022-06-02 09:00)
DX: N93.9 Abnormal uterine and vaginal bleeding, unspecified (principal); N94.6 Dysmenorrhea, unspecified; Z30.432 Encounter for removal of intrauterine contraceptive device; N85.8 Other specified noninflammatory disorders of uterus
CPT/HCPCS: 58563; 58562; 86850; 86900; 86901; 88305; J1100; J1885; J2405; J3010

== ENCOUNTER → 2022-11-23 13:46 | Outpatient (CLI) | payer BC, SELFPAY ==
--- NOTE | 2022-11-23 12:39 | DI.RAD_ITS ---
Exam(s) XR HIP RT COMPLETE AP PELVIS EXAM: XR HIP RT COMPLETE AP PELVIS CLINICAL HISTORY: RT HIP PAIN, M25.551. TECHNIQUE: 2D digital imaging was performed. Two views COMPARISON: No exams were available for comparison FINDINGS: BONES: No acute fracture is present. No bony destructive lesion is seen. JOINTS: No dislocation present. Hip joint spaces are maintained. Mild right acetabular spurring. SI joints appear normal. SOFT TISSUE: Normal. No soft tissue or joint space calcifications. IMPRESSION: Minimal degenerative changes of the right hip. DATA REPOSITORY: RADIATION DOSE DELIVERED:
== END ==
PROVIDERS: PCP Nurse Practitioner Family; Visit Provider Family Medicine
DX: M25.551 Pain in right hip (principal)
CPT/HCPCS: 73502

== ENCOUNTER → 2023-01-05 01:16 | Outpatient (CLI) | payer BC, SELFPAY ==
--- NOTE | 2023-01-05 | DI.MAMMO_ITS ---
Exam(s) MAMMO SCREENING EXAM: MAMMO SCREENING CLINICAL HISTORY: SCREENING, Z12.39. TECHNIQUE: Bilateral full field digital CC and MLO mammographic images were obtained with 3D tomosyn thesis and utilizing computer aided detection (CAD). COMPARISON: None. This is a baseline screening mammogram on a 42-year-old patient. FINDINGS: There has been no significant change in the appearance and distribution of the fibroglandular tissue. There are no spiculated masses nor malignant appearing microcalcification groups. There is no significant architectural distortion nor skin thickening-retraction. IMPRESSION: No radiographic evidence of malignancy. BI-RADS Category 1 - Negative Breast Density - Category B - Scattered areas of fibroglandular density Breast density Category C or D implies that the patient has dense breast tissue. Dense breast tissue can make it harder to find cancer on a mammogram. Dense breast tissue is also associated with an incr eased risk of breast cancer. This information about the result of the mammogram report was provided to the patient to raise their awareness. Use this report when you speak with the patient about their risks for breast cancer, which includes their family history. At that time, you may recommend additional screening tests (Ultrasoun d or MRI) as these tests may add significant information. A negative radiographic report should not delay biopsy if a dominant or clinically suspicious mass is present. Up to ten percent of cancers are not identified on mammography. A negative report may reinforce clinical impression. Adenosis and dense breasts may obscure an underlying neoplasm. False positive reports average 6 to 10%. Patient will receive a letter notifying them of these results.
== END ==
PROVIDERS: PCP Nurse Practitioner Family; Visit Provider Nurse Practitioner Family
DX: Z12.31 Encounter for screening mammogram for malignant neoplasm of breast (principal)
CPT/HCPCS: 77063; 77067

== ENCOUNTER → 2023-04-05 03:16 | Outpatient (CLI) | payer BC, SELFPAY ==
--- NOTE | 2023-04-05 07:19 | DI.MRI_ITS ---
Exam(s) MR UPPER JOINT LT WO EXAM: MR UPPER JOINT LT WO CLINICAL HISTORY: LT SHOULDER PAIN, LT ROTATOR CUFF TEAR,M75.102. TECHNIQUE: Multiplanar multisequence MRI was performed. COMPARISON: No exams were available for comparison FINDINGS: BONES: There is no fracture or contusion pattern. JOINTS: The acromioclavicular joint is normal. The glenohumeral joint is normal. There is a glenohume ral joint effusion. TENDONS: Supraspinatus: Unremarkable. Infraspinatus: Unremarkable. Subscapularis: Unremarkable. Teres Minor: Unremarkable. Biceps and Reserve: Unremarkable. MUSCLES: Unremarkable. GLENOID LABRUM: Unremarkable on this noncontrast examination. SOFT TISSUES: Unremarkable. LIGAMENTS: Unremarkable. OTHER: There is a small amount of fluid is seen in the subacromial subdeltoid bursa. IMPRESSION: 1. No evidence of a rotator cuff or labral tear on this noncontrast examination. 2. Small glenohumeral joint effusion. Small amount of fluid in the subacromial subdeltoid bursa whic h may represent bursitis. DATA REPOSITORY:
--- NOTE | 2023-04-05 07:19 | DI.MRI_ITS ---
Exam(s) MR LOWER JOINT RT WO EXAM: MR LOWER JOINT RT WO CLINICAL HISTORY: RT HIP PAIN,ASIF TEAR,FEMOROACETABULAR IMPINGEMENT,M25.851,s73.191A TECHNIQUE: Multiplanar multisequence MRI of right hip was performed COMPARISON: CR XR HIP RT COMPLETE AP PELVIS from 11/23/2022 FINDINGS: Bones: There is no evidence of a fracture or avascular necrosis. No significant joint effusion or l abral injury is present. No bone marrow edema is seen. The SI joints and symphysis pubis are well mary ntained. Musculotendinous structures: There is mild hyperintense signal seen within the right hamstring tendo ns suspicious for tendinosis. The visualized muscles otherwise show normal signal and size. The visua lized tendons are unremarkable. Intrapelvic structures demonstrate no significant abnormality. IMPRESSION: 1. Unremarkable MRI of the right hip. No evidence of avascular necrosis, joint effusion or labral tea r on this noncontrast examination. 2. Question of mild hyperintense signal seen in the right hamstring tendon suspicious for tendinosis. DATA REPOSITORY:
== END ==
PROVIDERS: PCP Nurse Practitioner Family; Visit Provider Student in an Organized Health Care Education/Training Program
DX: M25.511 Pain in right shoulder (principal)
CPT/HCPCS: 73721; 73221

== ENCOUNTER 2023-04-20 13:59 | Outpatient (CLI) | payer BC, SELFPAY ==
--- NOTE | 2023-04-20 08:30 | DI.RAD_ITS ---
Exam(s) XR SHOULDER LT COMPLETE 2+V EXAM: XR SHOULDER LT COMPLETE 2+V CLINICAL HISTORY: LEFT SHOULDER PAIN. TECHNIQUE: 2D digital imaging was performed. Two views. COMPARISON: No exams were available for comparison FINDINGS: BONES: No acute fracture is present. No bony destructive lesion is seen. JOINTS: No dislocation present. Glenohumeral joint space is maintained. No significant degenerative changes. SOFT TISSUE: Normal. IMPRESSION: Unremarkable radiographs of the left shoulder. DATA REPOSITORY: RADIATION DOSE DELIVERED:
== END 2023-04-20 14:00 | disposition home or self-care (01) ==
LOC: DIORS 13:59
PROVIDERS: PCP Nurse Practitioner Family; Visit Provider Student in an Organized Health Care Education/Training Program
DX: M25.512 Pain in left shoulder (principal)
CPT/HCPCS: 73030

== ENCOUNTER 2023-07-21 11:55 | Day surgery (SDC) | payer BC, SELFPAY ==
--- NOTE | 2023-07-21 10:17 | W.PM.DSUDISC ---
Date of service: 07/21/23 Time of Service: 14:00 Discharge Plan Disposition Patient Disposition: Home Discharge Details Attending Provider: Jefferson Ybarra Primary Care Provider: PORTILLO ADKINS Home Meds and New Rx's Prescriptions: New naproxen 250 mg tablet 250 - 500 mg PO BID PRNQty: 30 0RF Rx Instructions: take with a meal oxycodone 5 mg tablet 5 - 10 mg PO Q4H MDD 30 mg PRN (Reason: moderate to severe pain) Qty: 9 0RF Continued fluticasone propionate 50 mcg/actuation spray,suspension 1 spray intranasal DAILY PRN Rx Instructions: administer into each nostril vitamin d 2,000 units PO DAILY magnesium oxide 250 mg magnesium tablet 250 mg PO BID multivitamin [Daily Multi-Vitamin] Tablet 1 tab PO DAILY Discharge Instructions Additional Instructions: Surgery: Left shoulder manipulation under anesthesia Activity: Encourage increasing range of motion. Perform daily stretching exercises. Resume physical therapy tomorrow. Prescriptions: Naproxen 250 mg take 1-2 every 12 hours with a meal as needed for moderate pain Oxycodone 5 mg take 1-2 every 4-6 hours as needed for severe pain You may use [id number] Tylenol (acetaminophen) as needed for mild pain. These pain medications may be taken all at once or in different combinations as needed. Also, recommend Colace (docusate) as a stool softener as surgery and pain medicine cause constipation. You may try [id number] diphenhydramine (Benadryl) 25-50 mg nightly as a sleep aid Dressings: None Follow-up: 10-[address] Ybarra You may take off the leg compression stockings this evening at home. You may also leave them on a few days longer if you have a history of leg swelling or edema. Let us know right away if you develop any redness, drainage, fevers, chest pain, or trouble breathing. Do not drink alcohol or drive for at least 24 hours after anesthesia. Please call the office during business hours with any questions or concerns. Discharge Orders Discharge Orders: Discharge Order (Routine); Ordered 07/21/23 Ordered By: Jefferson Ybarra DS: Diagnosis Discharge Diagnosis (1) Adhesive capsulitis of left shoulder: Status: Acute
--- NOTE | 2023-07-21 10:19 | W.PM.OP ---
Date of service: 07/21/23 Time of Service: 13:30 Operative Note Operative Note DATE OF PROCEDURE: 07/21/23 PRE-OP DIAGNOSIS: Left shoulder stiffness PROCEDURE: Left shoulder manipulation under anesthesia, CPT #77455 SURGEON: Jefferson Ybarra ANESTHESIA TYPE: General LMA/ETT and Primary Nerve Block Refer to Anesthesia Record ESTIMATED BLOOD LOSS: 0 COMPLICATIONS: None Patient was transported to: same day Patient's condition: stable Indications: Please see complete medical record for details. Findings: Excellent release of adhesions, no instability Procedure Description: In the operating room, general anesthesia was induced. The patient was positioned supine on the stretcher. Preoperative antibiotics were omitted. The correct patient, procedure, and side of the procedure were all verified prior to beginning. The Left shoulder was examined with range of motion about 125 degrees forward elevation and 20 degrees external rotation. Internal rotation at about 90 degrees was about 45 degrees. These endpoints had relatively firm, stiff feel. A short lever arm and gradual to steady gentle pressure was used to perform the manipulation alternating between external rotation at the side, forward elevation, and abduction with internal and external rotation. Deliberately gradually and carefully excellent releases were felt in forward elevation and external rotation at the side. Less release needed in abduction and internal rotation. Range of motion was then tested and full. All endpoints were gently exaggerated. The shoulder joint remained stable. While the patient remained under anesthesia, all directions were stretched and repeated numerous times. The patient awoke from anesthesia without complication and was transferred to the recovery room in a stable condition.
[2023-07-21 12:07] VITALS: BP 123/63; PULSE 80; RESP 16; TEMP 36.6; O2SAT 100
--- NOTE | 2023-07-21 12:28 | ANES.PREOP_ITS ---
General Info Date of Service Date Performed: 07/21/23 Height: 5 ft 8 in Weight: 67.2 kg Body Mass Index (BMI): 22.5 Surgical Procedure: Operation Date: 07/21/23 13:10 Proposed Procedure Side Surgeon p Shoulder Manipulation Under Anesthesia Left Jefferson Ybarra MD Meds Allergies and Home Medications Allergies Allergy/AdvReac Type Severity Reaction Status Date / Time doxycycline Allergy Intermediate Skin Rash Verified 07/21/23 12:06 penicillin G Allergy Mild RASH,DIZZIN Verified 07/21/23 12:06 ESS DUST Allergy Mild HIVES,WATERY Uncoded 07/21/23 12:06 EYES, SNEEZING seasonal allergies Allergy Unknown Other (See Uncoded 07/21/23 12:06 Comment) Home Medication Medication Instructions Recorded vitamin d 2,000 units PO DAILY 01/19/21 fluticasone propionate 50 1 spray intranasal DAILY PRN 03/03/21 mcg/actuation nasal spray,suspension magnesium oxide 250 mg PO BID 03/03/21 multivitamin (Daily Multi-Vitamin 1 tab PO DAILY 09/04/21 tablet) Current Visit Medications: Current Medications Generic Name Dose Route Start Last Admin Trade Name Freq PRN Reason Stop Dose Admin Acetaminophen 1,000 mg 07/21/23 10:16 Acetaminophen 500 Mg Tab PO 08/20/23 10:15 Q6H PRN PRN Droperidol 0.625 mg 07/21/23 11:09 Droperidol 5 Mg/2 Ml Vial IVP 08/20/23 11:08 DIRECTED PRN Nausea Ephedrine Sulfate 0 mg 07/21/23 11:09 Ephedrine 25 Mg/5 Ml Syringe IVP 08/20/23 11:08 DIRECTED PRN Fentanyl 0 mcg 07/21/23 11:09 Fentanyl 100 Mcg/2 Ml Vial IVP 08/20/23 11:08 DIRECTED PRN Hydromorphone HCl 0 mg 07/21/23 11:09 Hydromorphone 2 Mg/Ml Syr IVP 08/20/23 11:08 DIRECTED PRN Ringer's Solution 1,000 mls @ 30 mls/hr 07/21/23 06:00 IV 08/19/23 23:59 INFUSION LALI IV Miscellaneous Supplies 1 each 07/21/23 06:00 Iv Access IV 08/19/23 23:59 DIRECTED LALI Naloxone HCl 0 mg 07/21/23 11:09 Naloxone 0.4 Mg/Ml Vial IVP 08/20/23 11:08 PRN PRN Naproxen 250 - 500 mg 07/21/23 10:16 Naproxen 500 Mg Tab PO 08/20/23 10:15 BID PRN PRN Oxycodone HCl 0 mg 07/21/23 10:16 Oxycodone 5 Mg Tab PO 08/20/23 10:15 Q3H PRN PRN Pain Sodium Chloride 0 ml 07/21/23 06:00 Normal Saline Flush 10 Ml Syr IV 08/19/23 23:59 PRN PRN Sodium Chloride 0 ml 07/21/23 06:00 Normal Saline 10 Ml Vial IJ 08/19/23 23:59 DIRECTED PRN Sterile Water 0 ml 07/21/23 06:00 Water,Injection,Sterile 10 Ml Vial IJ 08/19/23 23:59 DIRECTED PRN PFSH Active Problems Active Problems: Problem Status Onset Code Adhesive capsulitis of left shoulder M75.02 Shoulder injury related to vaccine administration (SIRVA) ~11/2022 S49.80XA, T50.Z95A Dysfunction of left rotator cuff M67.912 Labral tear of right hip joint S73.191A Femoroacetabular impingement of right hip M25.851 Status post endometrial ablation Z98.890 Postop check Z09 Abnormal uterine bleeding (AUB) N93.9 COVID-19 U07.1 IUD (intrauterine device) in place Z97.5 Skin tag of vulva N90.89 Dysmenorrhea N94.6 GERD (gastroesophageal reflux disease) K21.9 Medical History Medical History Dichorionic diamniotic twin gestation Vomiting affecting Gestational diabetes Endometriosis Miscarriage 06/13/2020 embryonic demise of surrogate gestation at 7 weeks EGA. Rx with misoprostol. Depression (09/26/12) Surgical History Surgical History Status post primary low transverse section 07/21/2021 gestational carrier Di Di female twins: Jessica, Donna. Biologic parents Placido and Francois. History of D&C 06/20/2020 Diagnostic Laproscopy (~2000) laparoscopy for endometriosis Tooth extraction wisdom teeth. Biopsy of breast (~2002) L breast. B9. Tobacco Smoking/Tobacco Use Status: Former Tobacco Use Passive smoking exposure: No Alcohol Alcohol Intake: current Alcohol intake frequency: holidays/special occasions only Substance Use Substance use: Never Substance use type: does not use Prental History History 6 Para 5 Hx # Term Pregnancies 5 Multiple births 2 Hx # Pregnancies 0 Ectopic pregnancies 0 AB induced 0 Hx Number of Living Children 7 AB spontaneous 1 Past Pregnancies Del. Date GA/Weeks # Preg Succ Route Wgt Sex Labor Lgth Anesth esia Location Prov Complic 06/22/09 39 No vaginal 3685.438 g Female 36 hrs [facility] 10/13/11 11/08/12 40 No vaginal 4224.079 g Male 28 hrs [facility] 05/06/16 40 No vaginal 3175.147 g 2 hrs [facility] 03/10/18 Yes vaginal 2778.253 g Female 13hrs 49 min regional ramya francis 07/22/21 38 Yes 2863.302 g Female A nnpastor Sutton 07/22/21 38 Yes Yes 3231.846 g Female Delivery Date: 10/13/11 Last Updated by: Sumaya Lilly RN SAB Delivery Date: 05/06/16 Last Updated by: Sumaya Lilly RN surrogate Delivery Date: 03/10/18 Last Updated by: Marilin Joshi M.D. 2nd twin double footling breech male Surrogate Delivery Date: 07/22/21 Last Updated by: Nae Garg LPN Baby B 7lbs 2 oz female Delivery Date: 07/22/21 Last Updated by: Ramya Sutton MD gestational carrier. breech presentation. Vital Signs and Lab Results Vital Signs Most Recent Vital Signs in EMR: Most Recent Vital Signs Temp Pulse Resp BP Pulse Ox 36.6 C 80 16 123/63 100 07/21/23 12:07 07/21/23 12:07 07/21/23 12:07 07/21/23 12:07 07/21/23 12:07 Point of Care Results Point of Care Results: POC- Test(urine) Negative 07/21/23 12:23 Lab Results Blood Type / Crossmatch: No Data to Display Complete Blood Count: No Data to Display Complete Metabolic Panel: No Data to Display Liver Function Panel: No Data to Display Coagulation Panel: No Data to Display Cardiac Panel: No Data to Display Arterial Blood Gas: No Data to Display Venous Blood Gas: No Data to Display Pancreas Panel: No Data to Display Thyroid Panel: No Data to Display Infectious Disease: No Data to Display Blood Cultures: No Data to Display Toxicology Panel: No Data to Display Panel: No Data to Display Anesthesia Assessment and Plan Anesthesia History Personal History: No History of Anesthesia Complications Family History: No Family History of Anesthesia Complications Exercise Tolerance Exercise Tolerance: Metabolic Equivalents>4 Pertinent Negatives Pertinent Negatives: No Symptoms of GERD Cardiac & Pulmonary Exam Cardiac Exam: Normal S1/S2 Heart Sounds Pulmonary Exam: Clear Bilateral Breath Sounds Implantable Cardiac Device Does patient have a Pacemaker or an ICD?: No Airway Exam Known Difficult Airway: No Mallampati Class: 1 Mouth Opening: Normal (> 3cm) Thyromental Distance: Greater than 3 cm Neck Range of Motion: Full ROM Neck Circumference: Normal Teeth Condition: Normal Dentition ASA Classification ASA Score: ASA 2 Emergency Case?: No NPO Status NPO Status: NPO Clears >2 hours, Solids >8 hours Status Status: Negative HCG Anesthesia Plan Resuscitation Status: Full Code Anesthesia Technique: General Anesthesia Airway Planned: Natural Airway Monitors Used: Standard Monitors
[2023-07-21 12:29] VITALS: BMI 22.5
[2023-07-21] MEDS: Lactated Ringers 1,000 ML 30 ML IV (12:36)
[2023-07-21 13:12] VITALS: BP 123/73; PULSE 88; RESP 16; TEMP 37.1; O2SAT 99
[2023-07-21 13:23] VITALS: BP 122/66; PULSE 74; RESP 16; TEMP 36.8
--- NOTE | 2023-07-21 13:36 | W.ANESNERVE ---
Nerve Block Single Injection Procedure Date and Time Date Performed: 07/21/23 Procedure Start: 13:15 Location Where Procedure Performed Procedure Location: Day Surgery Unit Reason Performed: Postoperative Analgesia Requesting Provider: Jefferson Ybarra Timeout Performed Timeout Performed: Yes Monitoring Used ECG, Blood Pressure, SpO2, ETCO2 and See EMR for corresponding vital signs Sterility Sterility: Hand Hygiene, Surgical Cap, Surgical Mask, Sterile Gloves, Sterile Drape/Sheet, Eye Protection and Chlorhexidine Sedation Given During Procedure Sedation Given (Indicate Dose Given): Versed IV Dose:: 3mg IVP Patient Mental Status Patient Mental Status: Sedate with meaningful communication Nerve Block 1st Nerve Block: Laterality: Left Block Type: Interscalene Ultrasound Image Saved?: Yes Needle / Catheter Used: 80mm SonoPlex II Local Anesthetic Bolus (Indicate Dose Given): Lidocaine used for local infiltration of skin, Bupivacaine 0.5% Dose:: 0.5%/10cc (50mg) and Exparel Dose:: 1.33%/10cc (133mg) Additives (Indicate Dose Given): Epinephrine to make 1:200,000 (5mcg/ml) Dose:: 100mcg and Decadron Dose:: PF Decadron Ultrasound: Sterile probe cover and gel used Nerve Stimulator: Not Used Paresthesia: None Procedure Tolerated: No Complications and Patient tolerated well Procedure Outcome: Successful Performed By: Lebron Gomez
[2023-07-21 14:04] VITALS: BP 109/58; PULSE 82; RESP 14; TEMP 36.5; O2SAT 97
[2023-07-21 14:32] VITALS: BP 117/69; PULSE 85; RESP 16; TEMP 36.5; O2SAT 97
--- NOTE | 2023-07-21 14:35 | W.ANESPOSTOP ---
Postoperative Evaluation Date, Time and Location Date Performed: 07/21/23 Time Performed: 14:35 Patient Location: Day Surgery Unit Vital Signs Most Recent Imported Vital Signs: Most Recent Vital Signs Temp Pulse Resp BP Pulse Ox 36.5 C 85 16 117/69 97 07/21/23 14:32 07/21/23 14:32 07/21/23 14:32 07/21/23 14:32 07/21/23 14:32 Pain Score Most Recent Pain Score: Most Recent Pain Score Pain Level 0 07/21/23 14:32 Assessment Mental Status: Awake (Alert & Oriented to Patient Baseline) Airway and Respiratory Function: Patent airway with normal (patient baseline) respiratory exam Cardiovascular Function: Hemodynamically Stable Hydration Status: Adequately Hydrated Nausea & Vomiting: No Nausea or Vomiting Pain: Pt. Denies Any Pain Peripheral Nerve Block: Regional nerve block not resolved at time of post operative discharge
== END 2023-07-21 15:29 | disposition home or self-care (01) ==
LOC: SUR 11:56
PROVIDERS: PCP Nurse Practitioner Family; Visit Provider Student in an Organized Health Care Education/Training Program
PROC: (CPT 23700; principal; 2023-07-21 13:00)
DX: M75.02 Adhesive capsulitis of left shoulder (principal)
CPT/HCPCS: 23700; 76942; 81025; C9290; J0171; J0665; J1100; J1885; J2001; J2250; J2405; J2704

== ENCOUNTER 2024-02-14 01:12 | Outpatient (CLI) | payer BC, SELFPAY ==
--- NOTE | 2024-02-14 15:25 | DI.MAMMO_ITS ---
Exam(s) MAMMO SCREENING EXAM: MAMMO SCREENING CLINICAL HISTORY: Screening, Z12.31 TECHNIQUE: Mammograms were interpreted according to the usual protocol including computer analysis w [employer] CAD system, tomosynthesis and C-view imaging. COMPARISON: 2022 FINDINGS: The breasts are composed of scattered fibroglandular densities, Breast Density category B. No suspicious masses or suspicious microcalcifications are seen. No skin thickening or abnormal axillary lymph nodes are seen. There has been no significant change from prior exams. IMPRESSION: BI-RADS Category 1, Negative mammogram Yearly screening mammography is recommended. Breast Density - Category B, scattered fibroglandular densities. A negative radiographic report should not delay biopsy if a dominant or clinically suspicious mass is present. Up to ten percent of cancers are not identified on mammography. A negative report may reinforce clinical impression. Adenosis and dense breasts may obscure an underlying neoplasm. False positive reports average 6 to 10%. Patient will receive a letter notifying them of these results.
== END 2024-02-14 01:32 ==
PROVIDERS: PCP Nurse Practitioner Family; Visit Provider Nurse Practitioner Family
DX: Z12.31 Encounter for screening mammogram for malignant neoplasm of breast (principal); R92.323 Mammographic fibroglandular density, bilateral breasts
CPT/HCPCS: 77063; 77067

== ENCOUNTER 2024-10-30 18:05 | Outpatient (REF) | payer BC, SELFPAY ==
--- NOTE | 2024-10-30 16:00 | PAPFT_PTH ---
PATIENT: Flower Cali LOC: [facility] U#:[id number] AGE/SX: 44/F ROOM: RE10/30/[address]: Maranda Shields DO : 1980 BED: DIS: 10/30/2024 SPEC #: [id number] RECD: 10/30/24 18:11 STATUS: CHARLENE REQ #: [id number] REGINE: 10/30/24 16:[address]: Maranda Shields DEPT: [facility] Cyt[facility] RECD BY: Christa Mathew ENTERED: 10/30/24 18:12 SP TYPE: PAPFT CJ DR: PORTILLO ADKINS NP Tissues: 1 - CX/ENDOCX FOR PAP SMEARS Procedures: PAP THIN PREP/[facility] Screening HPV DNA PROBE Comments: [id number] (HPV 16 & 18/45)
== END 2024-10-30 18:06 | disposition home or self-care (01) ==
LOC: LBN 18:05
PROVIDERS: PCP Nurse Practitioner Family; Visit Provider Obstetrics & Gynecology
DX: Z12.4 Encounter for screening for malignant neoplasm of cervix (principal)
CPT/HCPCS: 88142; 87624

== ENCOUNTER 2024-11-28 20:09 | Outpatient (REF) | payer BC, SELFPAY ==
[2024-11-28 22:29] LABS: Anion Gap 14.5 mmol/L (3-11); BUN 6 mg/dL (7-18); CO2 24.5 mmol/L (21.0-32.0); Calcium 9.1 mg/dL (8.5-10.1); Calculated LDL 115 mg/dL (<100); Chloride 102 mmol/L (98-107); Cholesterol 181 mg/dL (<200); Estimated GFR 125.08 (mL/min/1.73m2); Glucose 96 mg/dL (74-106); HDL Cholesterol 49 mg/dL (>or=50); Potassium 3.8 mmol/L (3.5-5.1); Sodium 141 mmol/L (136-145); Triglyceride 85 mg/dL (<150)
== END 2024-11-28 20:10 | disposition home or self-care (01) ==
LOC: NCHCN 20:09
PROVIDERS: PCP Nurse Practitioner Family; Visit Provider Nurse Practitioner Family
DX: Z00.00 Encounter for general adult medical examination without abnormal findings (principal); Z13.1 Encounter for screening for diabetes mellitus
CPT/HCPCS: 80048; 80061

== ENCOUNTER → 2025-03-04 00:55 | Outpatient (CLI) | payer BC, SELFPAY ==
--- NOTE | 2025-03-04 09:15 | DI.MAMMO_ITS ---
Exam(s) MAMMO SCREENING EXAM: MAMMO SCREENING CLINICAL HISTORY: screening TECHNIQUE: Bilateral full field digital CC and MLO mammographic images were obtained with 3D tomosynthesis and utilizing computer aided detection (CAD). COMPARISON: Comparison is made with prior examinations. FINDINGS: Masses/Architectural Distortion: No suspicious masses or areas of architectural distortion are present. Microcalcifications: No suspicious pleomorphic-type are seen. Skin Thickening/Nipple Retraction: None. IMPRESSION: 1. No significant interval change with no specific features of malignancy noted. 2. Unless there is more urgent need, screening mammography is recommended, as per [employer] guidelines. BI-RADS Category 1 - Negative Breast Density - Category C - The breast are heterogeneously dense, which may obscure small masses. Breast density Category C or D implies that the patient has dense breast tissue. Dense breast tissue can make it harder to find cancer on a mammogram. Dense breast tissue is also associated with an increased risk of breast cancer. This information about the result of the mammogram report was provided to the patient to raise their awareness. Use this report when you speak with the patient about their risks for breast cancer, which includes their family history. At that time, you may recommend additional screening tests (Ultrasound or MRI) as these tests may add significant information. A negative radiographic report should not delay biopsy if a dominant or clinically suspicious mass is present. Up to ten percent of cancers are not identified on mammography. A negative report may reinforce clinical impression. Adenosis and dense breasts may obscure an underlying neoplasm. False positive reports average 6 to 10%. Patient will receive a letter notifying them of these results.
== END ==
PROVIDERS: PCP Nurse Practitioner Family; Visit Provider Obstetrics & Gynecology
DX: Z12.31 Encounter for screening mammogram for malignant neoplasm of breast (principal)
CPT/HCPCS: 77063; 77067